=== PATIENT | female | born 1930 | race Caucasian/White ===

== ENCOUNTER → 2016-10-05 | Outpatient (CLI) | payer MEDICARE, BC ==
[2016-10-05 14:29] LABS: Basophils % (A) 1 %; CH 27.5; CHCM 31.6; Eosinophils % (A) 1 %; HDW 2.61; HGB 13.9 gm/dL (11.4-16.0); Hypochromasia Slight; Luc # (Auto) 0.13; Luc % (Auto) 3; Lymphocytes # (A) 1.1 k/uL (1.0-4.8); Lymphocytes % (A) 22 %; MCH 27.8 pg (25.0-35.0); MCHC 31.7 g/dL (31.0-37.0); MCV 87.8 fL (80.0-100.0); Mean Platelet Volume 7.2; Monocytes # (A) 0.3 k/uL (0-1.0); Monocytes % (A) 6 %; Neutrophils # (A) 3.5 k/uL (1.3-7.7); Neutrophils % (A) 69 %; RBC 5.01 m/uL (3.80-5.40); RDW 14.9 % (11.5-15.5); WBC 5.1 k/uL (3.8-10.6); WBC (Perox) 5.24
[2016-10-05 14:44] LABS: ALT 47 U/L (9-52); AST 44 U/L (14-36); Alkaline Phosphatase 282 U/L (38-126); Anion Gap 11 mmol/L; Blood Urea Nitrogen 16 mg/dL (7-17); Calcium 8.7 mg/dL (8.4-10.2); Carbon Dioxide 30 mmol/L (22-30); Chloride 102 mmol/L (98-107); Glucose 114 mg/dL (74-99); Non-African American GFR(MDRD) >60 (>60 ml/min/1.73 sqM); Potassium 3.8 mmol/L (3.5-5.1); Sodium 143 mmol/L (137-145); Total Protein 6.6 g/dL (6.3-8.2)
== END | disposition home or self-care (01) ==
LOC: LABWHC1 13:59
PROVIDERS: ATTEND Internal Medicine
DX: E61.1 Iron deficiency (principal); E03.9 Hypothyroidism, unspecified; Z79.899 Other long term (current) drug therapy
CPT/HCPCS: 36415; 71020; 80053; 84439; 84443; 84481; 85025; 99213

== ENCOUNTER 2016-12-20 11:21 | Emergency (ER) | payer MEDICARE, BC ==
[2016-12-20] MEDS ORDERED: ACETAMINOPHEN TAB 325 MG TAB PO STA (11:56)
[2016-12-20 12:31] LABS: Basophils % (A) 1 %; CH 28.1; CHCM 32.2; Eosinophils # (A) 0.1 k/uL (0-0.7); Eosinophils % (A) 1 %; HCT 42.2 % (34.0-46.0); HDW 2.56; HGB 13.6 gm/dL (11.4-16.0); Luc # (Auto) 0.12; Luc % (Auto) 2; Lymphocytes # (A) 1.5 k/uL (1.0-4.8); Lymphocytes % (A) 27 %; MCH 28.3 pg (25.0-35.0); MCHC 32.2 g/dL (31.0-37.0); MCV 87.9 fL (80.0-100.0); Mean Platelet Volume 7.3; Monocytes # (A) 0.3 k/uL (0-1.0); Monocytes % (A) 5 %; Neutrophils # (A) 3.5 k/uL (1.3-7.7); Neutrophils % (A) 65 %; RDW 14.6 % (11.5-15.5); WBC 5.4 k/uL (3.8-10.6)
[2016-12-20 12:40] LABS: INR 1.1 (<1.1); Partial Thromboplastin Time 25.9 sec (22.0-30.0); Prothrombin Time 10.7 sec (9.0-12.0)
--- NOTE | 2016-12-20 12:43 | ED ---
General Adult HPI - General Chief complaint: Dizziness Stated complaint: headache, Time Seen by Provider: 12/20/16 11:45 Source: patient Mode of arrival: wheelchair Limitations: no limitations - History of Present Illness Initial comments: This is an 86-year-old female with a history of CAD who presents emergency department for an episode of room spinning. She states that she was sitting in her chair this morning when all of a sudden the room started spinning. She was afraid to get up because she was afraid she was going to fall. She did not describe it as lightheadedness. She has no history of vertigo in the past. The symptoms spontaneously resolved on their own after some time and the patient now complains of a mild generalized headache. She denied any chest pain or shortness of breath during this time. No nausea, vomiting, or diarrhea. She states that she denied any trouble speaking or swallowing or focal weakness in her arms or legs. She denies any other acute complaints. - Related Data Home Medications Medication Instructions Recorded Confirmed Aspirin 81 mg PO DAILY 08/01/14 12/20/16 Atenolol [Tenormin] 50 mg PO BID 08/01/14 12/20/16 Levothyroxine Sodium [Synthroid] 75 mcg PO DAILY 08/01/14 12/20/16 Losartan [Cozaar] 50 mg PO HS 08/01/14 12/20/16 Timolol [Betimol 0.5% Ophth Soln] 1 drop BOTH EYES BID 03/19/15 12/20/16 Apixaban [Eliquis] 2.5 mg PO BID 08/07/15 12/20/16 amLODIPine [Norvasc] 5 mg PO HS 07/10/16 12/20/16 Atorvastatin [Lipitor] 40 mg PO HS 12/20/16 12/20/16 Furosemide [Lasix] 20 mg PO BID@0800,1400 12/20/16 12/20/16 Potassium Chloride ER [K-Dur 20] 20 meq PO MOWEFR 12/20/16 12/20/16 Previous Rx's Medication Instructions Recorded Atenolol [Tenormin] 75 mg PO BID #60 tab 12/20/16 Meclizine [Antivert] 25 mg PO TID PRN #21 tab 12/20/16 Allergies Allergy/AdvReac Type Severity Reaction Status Date / Time hydroxyzine HCl Allergy Rash/Hives Verified 12/20/16 12:39 [From Vistaril] hydroxyzine pamoate Allergy Rash/Hives Verified 12/20/16 12:39 [From Vistaril] Review of Systems ROS Statement: Those systems with pertinent positive or pertinent negative responses have been documented in the HPI. ROS Other: All systems not noted in ROS Statement are negative. Past Medical History Past Medical History: Coronary Artery Disease (CAD), Deep Vein Thrombosis (DVT) , Eye Disorder, Hyperlipidemia, Hypertension, Thyroid Disorder Additional Past Medical History / Comment(s): GLAUCOMA, HX OF SKIN CA, CURRENT LESION LEFT MEDIAL CANTHUS History of Any Multi-Drug Resistant Organisms: None Reported Past Surgical History: Coronary Bypass/CABG, Heart Catheterization With Stent, Joint Replacement, Orthopedic Surgery Additional Past Surgical History / Comment(s): MICHAEL KNEE'S REPLACED, thyroid surgery x 2, MAGNUS, EPS, CARDIOVERSION, CABG X3, STENT X1 Past Anesthesia/Blood Transfusion Reactions: No Reported Reaction Date of Last Stent Placement:: 2012 Past Psychological History: No Psychological Hx Reported Smoking Status: Never smoker Past Alcohol Use History: None Reported Past Drug Use History: None Reported - Past Family History Brother(s) Family Medical History: Cancer General Exam - General Exam Comments Initial Comments: Constitutional: Awake alert Appears comfortable Head: Normocephalic atraumatic Eyes: no conjunctival injection No scleral icterus EOMI Neck: No JVD Supple Heart: Regular rate rhythm normal S1-S2 no murmurs Lungs: Clear to auscultation bilaterally No wheezing No rales Abdomen: Soft nondistended nontender Extremities: Non edematous DP pulses intact Radial pulses intact Neuro: A&Ox3 cranial nerves II through XII are grossly intact, 5 out of 5 strength in upper and lower extremities bilaterally, finger to nose and heel to prescott testing is intact, no nystagmus with pupillary examination, pupils are 4 mm and reactive bilaterally Psych: Appropriate mood and affect Limitations: no limitations Course Vital Signs 12/20/16 12/20/16 11:33 12:47 Temperature 98.0 F Pulse Rate 78 89 Respiratory 20 18 Rate Blood Pressure 119/62 156/87 O2 Sat by Pulse 98 95 Oximetry EKG Findings - EKG Comments: EKG Findings:: EKG is showing atrial fibrillation with a rate of 80. No ST segment changes or T-wave inversions. QTC is 455. Other intervals are normal. No ectopy. Medical Decision Making - Medical Decision Making This is an 86-year-old female came to the emergency department for what appears to be vertigo. Blood work was reviewed and unremarkable. CT of the head was negative. EKG did show that the patient has converted back in atrial fibrillation. She is on all questions and anticoagulated. Her rate has been in the 90s to 100. I spoke with Dr. Lechuga about the case and he stated that he would just recommend increasing the atenolol to 75 mg twice a day and following up with Dr. muller on in the office and she hasn't point with Dr. Gaytan in 2 days. The patient feels comfortable with this plan and okay to go home. Should not require any intervention for her vertigo in the emergency department. Can return if she has worsening or changing symptoms. All questions were answered. - Lab Data Result diagrams: 12/20/16 12:06 12/20/16 12:06 Lab Results 12/20/16 12/20/16 12/20/16 Range/Units 12:06 12:06 12:06 WBC 5.4 (3.8-10.6) k/uL RBC 4.80 (3.80-5.40) m/uL Hgb 13.6 (11.4-16.0) gm/dL Hct 42.2 (34.0-46.0) % MCV 87.9 (80.0-100.0) fL MCH 28.3 (25.0-35.0) pg MCHC 32.2 (31.0-37.0) g/dL RDW 14.6 (11.5-15.5) % Plt Count 148 L (150-450) k/uL Neutrophils % 65 % Lymphocytes % 27 % Monocytes % 5 % Eosinophils % 1 % Basophils % 1 % Neutrophils # 3.5 (1.3-7.7) k/uL Lymphocytes # 1.5 (1.0-4.8) k/uL Monocytes # 0.3 (0-1.0) k/uL Eosinophils # 0.1 (0-0.7) k/uL Basophils # 0.0 (0-0.2) k/uL PT 10.7 (9.0-12.0) sec INR 1.1 (<1.1) APTT 25.9 (22.0-30.0) sec Sodium 142 (137-145) mmol/L Potassium 3.8 (3.5-5.1) mmol/L Chloride 104 (98-107) mmol/L Carbon Dioxide 29 (22-30) mmol/L Anion Gap 9 mmol/L BUN 18 H (7-17) mg/dL Creatinine 0.67 (0.52-1.04) mg/dL Est GFR (MDRD) Af Amer >60 (>60 ml/min/1.73 sqM) Est GFR (MDRD) Non-Af >60 (>60 ml/min/1.73 sqM) Glucose 82 (74-99) mg/dL Calcium 8.9 (8.4-10.2) mg/dL Total Bilirubin 1.0 (0.2-1.3) mg/dL AST 28 (14-36) U/L ALT 29 (9-52) U/L Alkaline Phosphatase 166 H (38-126) U/L Total Protein 6.7 (6.3-8.2) g/dL Albumin 3.7 (3.5-5.0) g/dL Disposition Clinical Impression: Atrial fibrillation, Vertigo Disposition: HOME SELF-CARE Condition: Stable Instructions: Dizziness (ED) Prescriptions: Atenolol [Tenormin] 75 mg PO BID #60 tab Meclizine [Antivert] 25 mg PO TID PRN #21 tab PRN Reason: dizziness Referrals: Naveen Mcduffie DO [Primary Care Provider] - 1-2 days Shayna Wick MD [Medical Doctor] - 1-2 days
[2016-12-20 12:48] VITALS: RESP 18
[2016-12-20 12:49] LABS: ALT 29 U/L (9-52); AST 28 U/L (14-36); Alkaline Phosphatase 166 U/L (38-126); Anion Gap 9 mmol/L; Blood Urea Nitrogen 18 mg/dL (7-17); Calcium 8.9 mg/dL (8.4-10.2); Carbon Dioxide 29 mmol/L (22-30); Chloride 104 mmol/L (98-107); Glucose 82 mg/dL (74-99); Non-African American GFR(MDRD) >60 (>60 ml/min/1.73 sqM); Potassium 3.8 mmol/L (3.5-5.1); Sodium 142 mmol/L (137-145); Total Protein 6.7 g/dL (6.3-8.2)
--- NOTE | 2016-12-20 13:28 | CT ---
EXAMINATION TYPE: CT brain wo con DATE OF EXAM: 12/20/2016 1:20 PM COMPARISON: NONE INDICATION: Dizziness and headache DLP: 984.50 mGycm, Automated exposure control for dose reduction was used. CONTRAST: None CT of the brain is performed utilizing 3 mm thick sections through the posterior fossa and 3 mm thick sections through the remaining calvarium. Study is performed within 24 hours of arrival to the hosp ital. No abnormal hyperdensity is present to suggest an acute intracranial hemorrhage. No mass lesion is evident. No acute infarcts are evident. Ventricles and sulci are appropriate for the patient age. Paranasal sinuses and mastoid air cells within the [id number] are clear. IMPRESSIONS: 1. No acute intracranial process.
[2016-12-20 15:21] VITALS: BP 128/83; PULSE 95; TEMP 97.6
== END 2016-12-20 15:21 | disposition home or self-care (01) ==
LOC: EC 11:21
DX: I48.91 Unspecified atrial fibrillation (principal); R42 Dizziness and giddiness; R51 Headache; I25.10 Atherosclerotic heart disease of native coronary artery without angina pectoris; E78.5 Hyperlipidemia, unspecified; I10 Essential (primary) hypertension; E07.9 Disorder of thyroid, unspecified; Z79.82 Long term (current) use of aspirin; Z79.01 Long term (current) use of anticoagulants; Z79.899 Other long term (current) drug therapy; Z88.8 Allergy status to other drugs, medicaments and biological substances; Z86.69 Personal history of other diseases of the nervous system and sense organs; Z86.718 Personal history of other venous thrombosis and embolism; Z95.5 Presence of coronary angioplasty implant and graft
CPT/HCPCS: 36415; 70450; 80053; 85025; 85610; 85730; 93005; 99284

== ENCOUNTER → 2017-02-03 | Outpatient (CLI) | payer MEDICARE, BC ==
--- NOTE | 2017-02-03 10:58 | WWHP ---
DATE OF SERVICE: 02/03/2017 CHIEF COMPLAINT: The patient is here for her routine gynecologic exam and mammogram. HPI: This is an 87-year-old G5, P5 with an LMP of 1974, who is status post [facility] for benign reasons. The patient continues to have some vaginal and labial irritation which she states had been previously improved with Premarin vaginal cream. She did not fill the prescription for the Premarin vaginal cream because of its cost. She would like to get another prescription for this. PAST MEDICAL HISTORY: Hypothyroidism, chronic hypertension, elevated cholesterol, coronary artery disease, and atrial fibrillation. MEDICATIONS: 1. Synthroid 75 mcg daily. 2. Amlodipine 5 mg daily. 3. Atenolol 50 mg b.i.d. 4. Aspirin 81 mg daily. 5. Eliquis 1 daily. 6. Losartan 50 mg daily. 7. Timolol drops b.i.d. 8. Atorvastatin 40 mg daily. Allergies to VISTARIL. Past surgical history is unchanged from the 2015 H&P. 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 SOCIAL HISTORY: She denies tobacco, alcohol, and drug use and has been since 1950 and is not sexually active. REVIEW OF SYSTEMS: Weight has been stable. She denies respiratory, cardiac, or GI problems. She denies urinary leakage. She also denies maltreatment or falling. PHYSICAL EXAM: Blood pressure 132/79. Height 5 feet 0 inches. Weight 129 pounds. Temperature 97.6, pulse 72. This a well-developed, well-nourished white female who is alert and oriented x3 in no acute distress. HEENT is within normal limits. NECK: Supple without mass or thyromegaly. CHEST AND LUNGS: Clear to auscultation. HEART: Irregularly irregular rhythm consistent with atrial fibrillation. Breasts are without mass or discharge. Axillary exam is negative for adenopathy. BACK: Negative for CVA tenderness. ABDOMEN: Soft, nontender, without palpable masses. PELVIC EXAM: External genitalia reveals moderate to severe atrophy with mild generalized pallor. There are no focal lesions and no excoriation noted. The vagina reveals moderate atrophy without lesions. There is no significant prolapse. Bimanual exam is negative for mass or tenderness. Rectovaginal exam is negative for mass or tenderness and is negative for occult blood. EXTREMITIES: Nontender. IMPRESSION: 1. An 87-year-old menopausal female, status post total abdominal hysterectomy for benign reasons. 2. 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 PLAN: 1. Pap smears have been discontinued. 2. Self breast examination was discussed. 3. A prescription for Premarin vaginal cream was given to the patient. She used to use 1 gram intravaginally twice weekly to the vagina and to the vulva as directed. 4. Osteoporosis prevention was discussed. 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 5. She does not get flu shots in the fall. 6. She will return in one year.
--- NOTE | 2017-02-04 12:55 | MM ---
Reason for exam: screening (asymptomatic). Last mammogram was performed 1 year ago. History: Patient is postmenopausal and history of other cancer. Physical Findings: A clinical breast exam by your physician is recommended on an annual basis and results should be correlated with mammographic findings. MG Screening Mammo w CAD Bilateral CC and MLO view(s) were taken. Prior study comparison: January 29, 2016, bilateral MG 3d screening mammo w/cad. January 22, 2015, bilateral MG screening mammo w CAD. The breast tissue is heterogeneously dense. This may lower the sensitivity of mammography. Previous mammotome biopsy in the left breast. No significant changes when compared with prior studies. ASSESSMENT: Benign, BI-RAD 2 RECOMMENDATION: Routine screening mammogram of both breasts in 1 year.
== END | disposition home or self-care (01) ==
LOC: WWCWWP 09:28
PROVIDERS: ATTEND Obstetrics & Gynecology
DX: Z12.31 Encounter for screening mammogram for malignant neoplasm of breast (principal)

== ENCOUNTER → 2017-05-26 | Outpatient (CLI) | payer MEDICARE, BC ==
--- NOTE | 2017-05-26 11:41 | FL ---
ESOPHOGRAM. HISTORY: Dysphagia Esophagram was performed per the air contrast technique. The patient swallowed barium and effervesce nt crystals without difficulty or delay. Esophageal peristalsis and motility appear to be within normal limits. There is no evidence for filling defect, mass or diverticulum. No hiatal hernia seen. Subsequently single contrast cervical esophagram was performed which fails demonstrate evidence for a spiration penetration or mass. IMPRESSION: Unremarkable study.
== END | disposition home or self-care (01) ==
LOC: RADFLMAIN 10:28
PROVIDERS: ATTEND Otolaryngology
DX: R13.10 Dysphagia, unspecified (principal)
CPT/HCPCS: 74220

== ENCOUNTER 2017-06-14 10:34 | Observation (INO) | payer MEDICARE, BC ==
[2017-06-14] MEDS ORDERED: SODIUM CHLORIDE 0.9% 1,000 ML IV STA (11:34)
[2017-06-14] MEDS ORDERED: PANTOPRAZOLE 40 MG/10 ML VIAL IVP STA (11:34)
--- NOTE | 2017-06-14 12:10 | ED ---
General Adult HPI - General Chief complaint: GI Bleed Stated complaint: Bloody Stool Time Seen by Provider: 06/14/17 11:27 Source: patient, RN notes reviewed Mode of arrival: ambulatory Limitations: no limitations - History of Present Illness Initial comments: Patient 87-year-old female who presents emergency room today with some blood in her stool. She states that she had diarrhea a few days ago. She says diarrhea has been improving but she has noticed some dark stools over the last 2 or 3 days. Patient left feeling tired. She mentioned complaints associated symptoms. Patient denies any recent fever, chills, shortness of breath, chest pain, back pain, abdominal pain, nausea or vomiting, numbness or tingling, dysuria or hematuria, constipation, headaches or visual changes, or any other complaints. - Related Data Home Medications Medication Instructions Recorded Confirmed Aspirin 81 mg PO DAILY 08/01/14 06/14/17 Atenolol [Tenormin] 50 mg PO BID 08/01/14 06/14/17 Levothyroxine Sodium [Synthroid] 75 mcg PO DAILY 08/01/14 06/14/17 Losartan [Cozaar] 50 mg PO HS 08/01/14 06/14/17 Timolol [Betimol 0.5% Ophth Soln] 1 drop BOTH EYES BID 03/19/15 06/14/17 Atorvastatin [Lipitor] 40 mg PO HS 12/20/16 06/14/17 Apixaban [Eliquis] 2.5 mg PO BID 06/14/17 06/14/17 Allergies Allergy/AdvReac Type Severity Reaction Status Date / Time hydroxyzine HCl Allergy Rash/Hives Verified 06/14/17 11:38 [From Vistaril] hydroxyzine pamoate Allergy Rash/Hives Verified 06/14/17 11:38 [From Vistaril] Review of Systems ROS Statement: Those systems with pertinent positive or pertinent negative responses have been documented in the HPI. ROS Other: All systems not noted in ROS Statement are negative. Past Medical History Past Medical History: Coronary Artery Disease (CAD), Deep Vein Thrombosis (DVT) , Eye Disorder, Hyperlipidemia, Hypertension, Thyroid Disorder Additional Past Medical History / Comment(s): GLAUCOMA, HX OF SKIN CA, CURRENT LESION LEFT MEDIAL CANTHUS History of Any Multi-Drug Resistant Organisms: None Reported Past Surgical History: Coronary Bypass/CABG, Heart Catheterization With Stent, Joint Replacement, Orthopedic Surgery Additional Past Surgical History / Comment(s): MICHAEL KNEE'S REPLACED, thyroid surgery x 2, MAGNUS, EPS, CARDIOVERSION, CABG X3, STENT X1 Past Anesthesia/Blood Transfusion Reactions: No Reported Reaction Date of Last Stent Placement:: 2012 Past Psychological History: No Psychological Hx Reported Smoking Status: Never smoker Past Alcohol Use History: None Reported Past Drug Use History: None Reported - Past Family History Brother(s) Family Medical History: Cancer General Exam - General Exam Comments Initial Comments: General: The patient is awake and alert, in no distress, and does not appear acutely ill. Eye: Pupils are equal, round and reactive to light, extra-ocular movements are intact. No nystagmus. There is normal conjunctiva bilaterally. No signs of icterus. Ears, nose, mouth and throat: There are moist mucous membranes and no oral lesions. Neck: The neck is supple, there is no tenderness or JVD. Cardiovascular: There is a regular rate and rhythm. No murmur, rub or gallop is appreciated. Respiratory: Lungs are clear to auscultation, respirations are non-labored, breath sounds are equal. No wheezes, stridor, rales, or rhonchi. Gastrointestinal: Soft, non-distended, non-tender abdomen without masses or organomegaly noted. There is no rebound or guarding present. No CVA tenderness. Bowel sounds are unremarkable. Musculoskeletal: Normal ROM, no tenderness. Strength 5/5. Sensation intact. Pulses equal bilaterally 2+. Neurological: A&O x 3. CN II-XII intact, There are no obvious motor or sensory deficits. Coordination appears grossly intact. Speech is normal. Skin: Skin is warm and dry and no rashes or lesions are noted. Psychiatric: Cooperative, appropriate mood & affect, normal judgment. : [employer] GAUGERSHAHRAM Hare present for exam. Normal rectal tone. Positive Guaiac Limitations: no limitations Course Vital Signs 06/14/17 11:21 Temperature 96.9 F L Pulse Rate 88 Respiratory 16 Rate Blood Pressure 132/61 O2 Sat by Pulse 96 Oximetry Medical Decision Making - Medical Decision Making Patient's labs been reviewed. Stable hemoglobin. Patient is on a liquids. Occult is positive. Patient will be admitted to the hospital. Case discussed with attending physician Dr. Holm who discussed case with Dr. Mcduffie who requests a surgical consult from Dr. Berman however, patient states that if there is a surgeon consult that they would like Dr. Omalley. They state they have seen him in the past. - Lab Data Result diagrams: 06/14/17 11:57 06/14/17 11:57 Lab Results 06/14/17 06/14/17 06/14/17 Range/Units 11:57 11:57 11:57 WBC 4.8 (3.8-10.6) k/uL RBC 5.00 (3.80-5.40) m/uL Hgb 13.8 (11.4-16.0) gm/dL Hct 43.2 (34.0-46.0) % MCV 86.5 (80.0-100.0) fL MCH 27.5 (25.0-35.0) pg MCHC 31.9 (31.0-37.0) g/dL RDW 14.1 (11.5-15.5) % Plt Count 200 (150-450) k/uL Neutrophils % 57 % Lymphocytes % 31 % Monocytes % 6 % Eosinophils % 2 % Basophils % 1 % Neutrophils # 2.7 (1.3-7.7) k/uL Lymphocytes # 1.5 (1.0-4.8) k/uL Monocytes # 0.3 (0-1.0) k/uL Eosinophils # 0.1 (0-0.7) k/uL Basophils # 0.0 (0-0.2) k/uL PT 12.0 (9.0-12.0) sec INR 1.2 H (<1.2) APTT 29.4 (22.0-30.0) sec Sodium 142 (137-145) mmol/L Potassium 4.1 (3.5-5.1) mmol/L Chloride 104 (98-107) mmol/L Carbon Dioxide 30 (22-30) mmol/L Anion Gap 8 mmol/L BUN 16 (7-17) mg/dL Creatinine 0.76 (0.52-1.04) mg/dL Est GFR (MDRD) Af Amer >60 (>60 ml/min/1.73 sqM) Est GFR (MDRD) Non-Af >60 (>60 ml/min/1.73 sqM) Glucose 86 (74-99) mg/dL Calcium 8.5 (8.4-10.2) mg/dL Total Bilirubin 0.8 (0.2-1.3) mg/dL AST 33 (14-36) U/L ALT 27 (9-52) U/L Alkaline Phosphatase 169 H (38-126) U/L Total Protein 6.6 (6.3-8.2) g/dL Albumin 3.2 L (3.5-5.0) g/dL Stool Occult Blood (Negative) 06/14/17 Range/Units 11:57 WBC (3.8-10.6) k/uL RBC (3.80-5.40) m/uL Hgb (11.4-16.0) gm/dL Hct (34.0-46.0) % MCV (80.0-100.0) fL MCH (25.0-35.0) pg MCHC (31.0-37.0) g/dL RDW (11.5-15.5) % Plt Count (150-450) k/uL Neutrophils % % Lymphocytes % % Monocytes % % Eosinophils % % Basophils % % Neutrophils # (1.3-7.7) k/uL Lymphocytes # (1.0-4.8) k/uL Monocytes # (0-1.0) k/uL Eosinophils # (0-0.7) k/uL Basophils # (0-0.2) k/uL PT (9.0-12.0) sec INR (<1.2) APTT (22.0-30.0) sec Sodium (137-145) mmol/L Potassium (3.5-5.1) mmol/L Chloride (98-107) mmol/L Carbon Dioxide (22-30) mmol/L Anion Gap mmol/L BUN (7-17) mg/dL Creatinine (0.52-1.04) mg/dL Est GFR (MDRD) Af Amer (>60 ml/min/1.73 sqM) Est GFR (MDRD) Non-Af (>60 ml/min/1.73 sqM) Glucose (74-99) mg/dL Calcium (8.4-10.2) mg/dL Total Bilirubin (0.2-1.3) mg/dL AST (14-36) U/L ALT (9-52) U/L Alkaline Phosphatase (38-126) U/L Total Protein (6.3-8.2) g/dL Albumin (3.5-5.0) g/dL Stool Occult Blood Positive H (Negative) Disposition Clinical Impression: GI bleed Disposition: ADMITTED IP TO THIS HOSP Condition: Stable Instructions: Gastrointestinal Bleeding (ED) Referrals: Naveen Mcduffie DO [Primary Care Provider] - 1-2 days Time of Disposition: 13:01
[2017-06-14 12:18] LABS: Basophils % (A) 1 %; CH 27.4; CHCM 31.9; Eosinophils # (A) 0.1 k/uL (0-0.7); Eosinophils % (A) 2 %; HCT 43.2 % (34.0-46.0); HDW 2.71; HGB 13.8 gm/dL (11.4-16.0); Luc # (Auto) 0.15; Luc % (Auto) 3; Lymphocytes # (A) 1.5 k/uL (1.0-4.8); Lymphocytes % (A) 31 %; MCH 27.5 pg (25.0-35.0); MCHC 31.9 g/dL (31.0-37.0); MCV 86.5 fL (80.0-100.0); Mean Platelet Volume 7.4; Monocytes # (A) 0.3 k/uL (0-1.0); Monocytes % (A) 6 %; Neutrophils # (A) 2.7 k/uL (1.3-7.7); Neutrophils % (A) 57 %; RDW 14.1 % (11.5-15.5); WBC 4.8 k/uL (3.8-10.6); WBC (Perox) 4.43
[2017-06-14 12:23] LABS: ALT 27 U/L (9-52); AST 33 U/L (14-36); Alkaline Phosphatase 169 U/L (38-126); Anion Gap 8 mmol/L; Blood Urea Nitrogen 16 mg/dL (7-17); Calcium 8.5 mg/dL (8.4-10.2); Carbon Dioxide 30 mmol/L (22-30); Chloride 104 mmol/L (98-107); Glucose 86 mg/dL (74-99); Non-African American GFR(MDRD) >60 (>60 ml/min/1.73 sqM); Potassium 4.1 mmol/L (3.5-5.1); Sodium 142 mmol/L (137-145); Total Bilirubin 0.8 mg/dL (0.2-1.3); Total Protein 6.6 g/dL (6.3-8.2)
[2017-06-14 12:33] LABS: INR 1.2 (<1.2); Partial Thromboplastin Time 29.4 sec (22.0-30.0)
[2017-06-14] MEDS ORDERED: ACETAMINOPHEN TAB 325 MG TAB PO PRN (13:08)
[2017-06-14] MEDS ORDERED: ONDANSETRON 4 MG/2 ML VIAL IVP PRN (13:08)
[2017-06-14] MEDS ORDERED: NALOXONE 0.4 MG/ML 1 ML VIAL IV PRN (13:08)
[2017-06-14 14:53] LABS: Appearance,Urine Clear (Clear); Bacteria,Urine Rare /hpf; Bilirubin,Urine Negative (Negative); Glucose,Urine (UA) Negative (Negative); Ketones,Urine Negative (Negative); Leukocyte Esterase,Urine Trace (Negative); Mucus,Urine Rare /hpf; Nitrite,Urine Negative (Negative); Particle Count 1575; Protein,Urine Negative (Negative); Specific Gravity,Urine 1.003 (1.001-1.035); Squamous Epithelial Cell,Urine 2 /hpf (0-4); UA Billing (MACRO vs. MICRO) MICRO; Urobilinogen,Urine <2.0 mg/dL (<2.0); WBC,Urine 2 /hpf (0-5)
[2017-06-14 15:10] VITALS: RESP 18
[2017-06-14 18:21] LABS: CH 27.6; CHCM 31.6; HCT 36.7 % (34.0-46.0); HDW 2.68; HGB 11.7 gm/dL (11.4-16.0); Hypochromasia Slight; MCH 28.1 pg (25.0-35.0); MCV 87.8 fL (80.0-100.0); RBC 4.18 m/uL (3.80-5.40); RDW 14.3 % (11.5-15.5); WBC 4.3 k/uL (3.8-10.6)
[2017-06-14] MEDS ORDERED: ATORVASTATIN 40 MG TAB PO SCH (21:00)
[2017-06-14] MEDS ORDERED: LOSARTAN 50 MG TAB PO SCH (21:00)
[2017-06-14] MEDS: ATENOLOL 50 MG TAB PO SCH (21:55)
[2017-06-14] MEDS: TIMOLOL 0.5% OPHTH DROPS 5 ML BTL BOTH EYES SCH (21:56)
[2017-06-15] MEDS ORDERED: LEVOTHYROXINE 75 MCG TAB PO SCH (06:30)
[2017-06-15 06:55] LABS: ALT 29 U/L (9-52); AST 31 U/L (14-36); Alkaline Phosphatase 160 U/L (38-126); Anion Gap 6 mmol/L; Blood Urea Nitrogen 13 mg/dL (7-17); Calcium 8.1 mg/dL (8.4-10.2); Carbon Dioxide 28 mmol/L (22-30); Chloride 106 mmol/L (98-107); Glucose 92 mg/dL (74-99); Non-African American GFR(MDRD) >60 (>60 ml/min/1.73 sqM); Potassium 3.6 mmol/L (3.5-5.1); Sodium 140 mmol/L (137-145); Total Bilirubin 0.5 mg/dL (0.2-1.3); Total Protein 5.5 g/dL (6.3-8.2)
[2017-06-15 07:31] LABS: Basophils % (A) 1 %; CH 27.1; CHCM 30.8; Eosinophils # (A) 0.1 k/uL (0-0.7); Eosinophils % (A) 2 %; HCT 37.3 % (34.0-46.0); HDW 2.62; HGB 11.7 gm/dL (11.4-16.0); Hypochromasia Slight; Luc # (Auto) 0.12; Luc % (Auto) 3; Lymphocytes # (A) 1.3 k/uL (1.0-4.8); Lymphocytes % (A) 28 %; MCH 27.7 pg (25.0-35.0); MCHC 31.3 g/dL (31.0-37.0); MCV 88.4 fL (80.0-100.0); Mean Platelet Volume 7.8; Monocytes # (A) 0.3 k/uL (0-1.0); Monocytes % (A) 7 %; Neutrophils # (A) 2.8 k/uL (1.3-7.7); Neutrophils % (A) 59 %; RBC 4.22 m/uL (3.80-5.40); RDW 14.1 % (11.5-15.5); WBC 4.7 k/uL (3.8-10.6); WBC (Perox) 4.85
[2017-06-15 07:36] VITALS: BP 116/61; PULSE 93; TEMP 98.4
--- NOTE | 2017-06-15 08:59 | P.CON ---
Consult Note - . Consult date: 06/15/17 Assessment/Plan:: Thank you very much for asking me to see Mrs. Huerta.. She is well-known to me. She had a colonoscopy about 5 years ago had several tubular adenomas removed in the hyperplastic polyp. Not seen subsequently in the office. She was admitted the with a history of some bright red blood per rectum at least about 2 episodes. Had some loose bowel movements prior to that. The previously she's had fairly normal bowel movements daily. Since admission however she's not had any bowel movements or bleeding almost the 18-20 hours ago. Her hemoglobin was 13.6 on admission. 11.7 last night and 11.7 this morning. No nausea or vomiting. She denies any abdominal pain. She is currently on aspirin and the calculus. Has a history of arrhythmia coronary artery disease of CABG stent placement hypertension hypothyroidism. Past history as above. Also bilateral knee replacements. Several abdominal surgeries she can't recall exactly. Social history. She lives with her at home. Has several children in the neighborhood. Denies smoking or alcohol. Systems review. As above. No nausea or vomiting. No abdominal pain. No urinary symptoms. No dizziness or significant the weakness although she felt a little weak yesterday. Hungry. On examination the patient is well-built well-nourished awake alert poor memory. Then weighs about 54.5 kg. Color satisfactory hydration satisfactory head and neck otherwise normal no lymphadenopathy. Has well-healed thyroid to the ectomy scar. Heart regular with the PVCs. Lungs are clear. Abdomen is fairly soft has a long midline scar no hernias. No mass or organomegaly or tenderness. Rectal exam in the ER was normal without mass. Stool was Hemoccult positive. RETAIL MERCHANDISING SPECIALIST grossly intact no focal deficits. Laboratory laboratory studies reviewed as above hemoglobin is stable since last night. Drop from 13.6-11.7 probably motion. No evidence of any active bleeding at this time. Impression. No GI bleed. History of colon polyps. Doubt the malignancy. Probably outlet bleeding in view of irritation from recent diarrhea stool now resolved. No evidence of any active bleeding at this time. Multiple medical issues including coronary artery disease arrhythmia hypertension. On anticoagulants which may make her more prone to bleeding. Recommendation. We'll advance her diet. At her age somewhat too high for risks for endoscopic exam unless she continues to have active bleeding. May consider minimizing anticoagulation. We will continue to monitor her closely.
[2017-06-15] MEDS ORDERED: PANTOPRAZOLE 40 MG/10 ML VIAL IV SCH (09:00)
[2017-06-15] MEDS: ATENOLOL 50 MG TAB PO SCH (09:48)
[2017-06-15] MEDS: TIMOLOL 0.5% OPHTH DROPS 5 ML BTL BOTH EYES SCH (09:48)
--- NOTE | 2017-06-15 09:57 | P.HPIM ---
History of Present Illness H&P Date: 06/15/17 Chief Complaint: Blood per rectum This is an 87 year old female who presented to the ER on 06-14-17 with a chief complaint of blood in her stools. The patient had diarrhea for the past few days which is improving but then she started noticing blood in her stools. She has a history of coronary artery disease, DVT, hyperlipidemia, and hypertension. She has also had a CABG in the past and a heart catheterization with a stent. Patient is on long-term anticoagulation with Eliquis 2.5 mg by mouth twice a day. The patient was admitted to the observation unit under the care of Dr. Naveen Mcduffie and consults were placed to Dr. Omalley. The patient was evaluated by Dr. Omalley who did not believe the patients rectal bleeding was due to a GI bleed, but rather outlet bleeding from irritation from having multiple episodes of diarrhea. He recommended advancing the patients diet. No colonoscopy is planned at this time. The patient has not had any episodes of diarrhea since being at the hospital. Her hemoglobin is stable. Her vital signs are stable. She is afebrile. She's maintaining oxygen saturation greater than 92%. The patient denies chest pain, pressure, shortness of breath, nausea, or vomiting. 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 Past Anesthesia/Blood Transfusion Reactions: No Reported Reaction Date of Last Stent Placement:: 2012 Smoking Status: Never smoker - Past Family History Mother Additional Family Medical History / Comment(s): " OF OLD AGE IN HER 90'S" Father Additional Family Medical History / Comment(s): " OF OLD AGE IN HIS 90'S" Brother(s) Family Medical History: Cancer Medications and Allergies Home Medications Medication Instructions Recorded Confirmed Type Aspirin 81 mg PO DAILY 08/01/14 06/14/17 History Atenolol [Tenormin] 50 mg PO BID 08/01/14 06/14/17 History Levothyroxine Sodium [Synthroid] 75 mcg PO DAILY 08/01/14 06/14/17 History Losartan [Cozaar] 50 mg PO HS 08/01/14 06/14/17 History Timolol [Betimol 0.5% Ophth Soln] 1 drop BOTH EYES BID 03/19/15 06/14/17 History Atorvastatin [Lipitor] 40 mg PO HS 12/20/16 06/14/17 History Apixaban [Eliquis] 2.5 mg PO BID 06/14/17 06/14/17 History Allergies Allergy/AdvReac Type Severity Reaction Status Date / Time hydroxyzine HCl Allergy Rash/Hives Verified 06/14/17 20:14 [From Vistaril] hydroxyzine pamoate Allergy Rash/Hives Verified 06/14/17 20:14 [From Vistaril] Physical Exam Vitals: Vital Signs Temp Pulse Pulse Resp BP BP BP 06/15/17 08:00 93 06/15/17 07:35 98.4 F 93 18 116/61 06/15/17 04:00 18 06/15/17 00:00 98 F 92 18 94/60 06/14/17 20:00 99 18 06/14/17 15:08 98.0 F 99 18 129/87 06/14/17 14:49 98 F 96 17 109/58 06/14/17 11:21 96.9 F L 88 16 132/61 Pulse Ox 06/15/17 08:00 06/15/17 07:35 94 L 06/15/17 04:00 06/15/17 00:00 97 06/14/17 20:00 06/14/17 15:08 95 06/14/17 14:49 95 06/14/17 11:21 96 Intake and Output 06/14/17 06/15/17 06/15/17 22:59 06:59 14:59 Intake Total 520 600 Balance 520 600 Intake: Intake, IV Titration 300 Amount Sodium Chloride 0.9% 1, 300 000 ml @ 75 mls/hr IV . [id number] STA Rx#:[id number] Oral 520 300 Other: # Voids 3 1 Weight 54.5 kg GENERAL: Alert and oriented. Appears in no acute distress. Pleasant. RESPIRATORY: Lungs clear bilaterally. No use of accessory muscles. Patient maintaining oxygen saturation greater than 92%. CARDIOVASCULAR: S1 and S2 noted. No murmurs auscultated. No JVD noted. EXTREMITIES: No edema noted. Palpable pedal pulses +2. ABDOMEN: No distention noted. Abdomen soft and round. Normal active bowel sounds auscultated 4 quadrants. No pain or tenderness noted upon palpation. Results CBC & Chem 7: 06/15/17 06:19 06/15/17 06:19 Labs: Abnormal Lab Results - Last 24 Hours (Table) 06/14/17 06/14/17 06/14/17 Range/Units 11:57 11:57 11:57 INR 1.2 H (<1.2) Calcium (8.4-10.2) mg/dL Alkaline Phosphatase 169 H (38-126) U/L Total Protein (6.3-8.2) g/dL Albumin 3.2 L (3.5-5.0) g/dL Ur Leukocyte Esterase (Negative) Urine Bacteria (None) /hpf Urine Mucus (None) /hpf Stool Occult Blood Positive H (Negative) 06/14/17 06/15/17 Range/Units 14:30 06:19 INR (<1.2) Calcium 8.1 L (8.4-10.2) mg/dL Alkaline Phosphatase 160 H (38-126) U/L Total Protein 5.5 L (6.3-8.2) g/dL Albumin 2.6 L (3.5-5.0) g/dL Ur Leukocyte Esterase Trace H (Negative) Urine Bacteria Rare H (None) /hpf Urine Mucus Rare H (None) /hpf Stool Occult Blood (Negative) Microbiology - Last 24 Hours (Table) 06/14/17 14:30 Urine Culture - Preliminary Urine,Voided Thrombosis Risk Factor Assmnt - Choose All That Apply Any of the Below Risk Factors Present?: Yes Other Risk Factors: Yes Each Risk Factor Represents 2 Points: Malignancy Each Risk Factor Represents 3 Points: Age 75 years or older, History of DVT/PE Other congenital or acquired thrombophilia - If yes, enter type in comment: No Thrombosis Risk Factor Assessment Total Risk Factor Score: 8 Thrombosis Risk Factor Assessment Level: High Risk Assessment and Plan Plan: ASSESSMENT: -GI Bleed, ruled out -Rectal bleeding secondary to irritation from recent diarrhea, resolved -History of hemorrhoids -History of coronary artery disease, with prior stenting and CABG -History of deep vein thrombosis and atrial fibrillation, patient on long-term anticoagulation -Essential hypertension PLAN: -Dr. Omalley on consult. Appreciate recommendations and input -Resume home meds as appropriate -advance diet -Monitor labs -GI prophylaxis: 40 mg Protonix IV daily -DVT prophylaxis: Held due to rectal bleeding -Monitor vital signs and address as appropriate The above impression and plan of care have been discussed and directed by signing physician. Guera Terrell, nurse practitioner, acting as scribe for signing physician.
--- NOTE | 2017-06-15 10:19 | P.DS ---
Providers Date of admission: 06/14/17 14:27 Expected date of discharge: 06/15/17 Attending physician: Naveen Holden Consults: 06/14/17 13:11 Consult Physician Stat Consulting Provider: Marshall Omalley Consult Reason/Comments: GI bleed Do you want consulting provider notified?: Yes Primary care physician: Naveen [facility] Course: This is an 87 year old female who presented to the ER on 06-14-17 with a chief complaint of blood in her stools. The patient had diarrhea for the past few days which is improving but then she started noticing blood in her stools. She has a history of coronary artery disease, DVT, hyperlipidemia, and hypertension. She has also had a CABG in the past and a heart catheterization with a stent. Patient is on long-term anticoagulation with Eliquis 2.5 mg by mouth twice a day. The patient was admitted to the observation unit under the care of Dr. Naveen Holden and consults were placed to Dr. Omalley. The patient was evaluated by Dr. Omalley who did not believe the patients rectal bleeding was due to a GI bleed, but rather outlet bleeding from irritation from having multiple episodes of diarrhea. He recommended advancing the patients diet. No colonoscopy is planned at this time. The patient has not had any episodes of diarrhea since being at the hospital. Her hemoglobin is stable. Her vital signs are stable. She is afebrile. She's maintaining oxygen saturation greater than 92%. The patient denies chest pain, pressure, shortness of breath, nausea, or vomiting. The patient is stable for discharge home per Dr. Holden. The patient is to resume her aspirin. However she is supposed to hold her Eliquis until she sees Dr. Holden outpatient in the office. DISCHARGE DIAGNOSIS: -GI Bleed, ruled out -Rectal bleeding secondary to irritation from recent diarrhea, resolved -History of hemorrhoids -History of coronary artery disease, with prior stenting and CABG -History of deep vein thrombosis and atrial fibrillation, patient on long-term anticoagulation -Essential hypertension The above impression and plan of care have been discussed and directed by signing physician. Guera Terrell, nurse practitioner, acting as scribe for signing physician. Patient Condition at Discharge: Stable Plan - Discharge Summary New Discharge Prescriptions: Continue Losartan [Cozaar] 50 mg PO HS Atenolol [Tenormin] 50 mg PO BID Aspirin 81 mg PO DAILY Levothyroxine Sodium [Synthroid] 75 mcg PO DAILY Timolol [Betimol 0.5% Ophth Soln] 1 drop BOTH EYES BID Atorvastatin [Lipitor] 40 mg PO HS No Action Apixaban [Eliquis] 2.5 mg PO BID Discharge Medication List Aspirin 81 mg PO DAILY 08/01/14 [History] Atenolol [Tenormin] 50 mg PO BID 08/01/14 [History] Levothyroxine Sodium [Synthroid] 75 mcg PO DAILY 08/01/14 [History] Losartan [Cozaar] 50 mg PO HS 08/01/14 [History] Timolol [Betimol 0.5% Ophth Soln] 1 drop BOTH EYES BID 03/19/15 [History] Atorvastatin [Lipitor] 40 mg PO HS 12/20/16 [History] Apixaban [Eliquis] 2.5 mg PO BID 06/14/17 [History] Follow up Appointment(s)/Referral(s): Naveen Holden DO [Primary Care Provider] - 1 Week Marshall Omalley MD [STAFF PHYSICIAN] - As Needed Patient Instructions/Handouts: Gastrointestinal Bleeding (ED) Activity/Diet/Wound Care/Special Instructions: RESUME ASPIRIN. DO NOT RESUME ELIQUIS UNTIL YOU SEE DR. HOLDEN IN THE OFFICE NEXT WEEK Discharge Disposition: HOME SELF-CARE
== END 2017-06-15 13:10 | disposition home or self-care (01) ==
LOC: EC 10:34 → 3OBS 14:27
PROVIDERS: ADMIT Family Medicine; ATTEND Family Medicine
DX: R19.7 Diarrhea, unspecified (principal); R53.1 Weakness; K64.9 Unspecified hemorrhoids; I25.10 Atherosclerotic heart disease of native coronary artery without angina pectoris; Z95.1 Presence of aortocoronary bypass graft; Z95.5 Presence of coronary angioplasty implant and graft; Z86.718 Personal history of other venous thrombosis and embolism; I48.91 Unspecified atrial fibrillation; Z79.01 Long term (current) use of anticoagulants; I10 Essential (primary) hypertension; E03.9 Hypothyroidism, unspecified; E78.5 Hyperlipidemia, unspecified; H40.9 Unspecified glaucoma; I49.9 Cardiac arrhythmia, unspecified; Z79.82 Long term (current) use of aspirin; Z79.899 Other long term (current) drug therapy; Z85.828 Personal history of other malignant neoplasm of skin; Z86.010 Personal history of colon polyps; Z88.8 Allergy status to other drugs, medicaments and biological substances
CPT/HCPCS: 99285; 96374; 96361 ×4; 96376; 36415; 80053 ×2; 85025 ×2; 85027; 85610; 85730; 82272; 81001; 87086; G0378 ×2; C9113 ×2

== ENCOUNTER → 2017-06-30 | Outpatient (CLI) | payer MEDICARE, BC ==
[2017-06-30 10:06] LABS: ALT 26 U/L (9-52); AST 28 U/L (14-36); Alkaline Phosphatase 184 U/L (38-126); Anion Gap 5 mmol/L; Blood Urea Nitrogen 8 mg/dL (7-17); Calcium 8.9 mg/dL (8.4-10.2); Carbon Dioxide 32 mmol/L (22-30); Chloride 107 mmol/L (98-107); Cholesterol 136 mg/dL (<200); Glucose 90 mg/dL (74-99); HDL Cholesterol 51 mg/dL (40-60); Non-African American GFR(MDRD) >60 (>60 ml/min/1.73 sqM); Sodium 144 mmol/L (137-145); Total Protein 6.9 g/dL (6.3-8.2)
== END | disposition home or self-care (01) ==
LOC: LABWHC1 09:17
PROVIDERS: ATTEND Internal Medicine Interventional Cardiology
DX: E78.2 Mixed hyperlipidemia (principal)
CPT/HCPCS: 36415; 80053; 80061

== ENCOUNTER 2017-10-02 11:04 | Observation (INO) | payer MEDICARE, BC ==
--- NOTE | 2017-10-02 11:39 | ED ---
General Adult HPI - General Chief complaint: Chest Pain Stated complaint: CHEST PAIN, HAS HEART Hx Time Seen by Provider: 10/02/17 11:33 Source: patient, family, RN notes reviewed, old records reviewed Mode of arrival: wheelchair Limitations: physical limitation - History of Present Illness Initial comments: This is a 87-year-old female to the ER for evaluation today. Patient does say for evaluation regards to chest pain. Patient does have significant history of heart disease with open-heart surgery. Bypass. Patient states pain awoke her from sleep, pain was around 10 AM. Pain did resolve. Patient was very anxious taking that she was having a heart attack. Mild for breath no sweating. Patient denies nausea vomiting. No recent change in medications - Related Data Home Medications Medication Instructions Recorded Confirmed Aspirin 81 mg PO DAILY 08/01/14 10/02/17 Atenolol [Tenormin] 50 mg PO BID 08/01/14 10/02/17 Levothyroxine Sodium [Synthroid] 75 mcg PO DAILY 08/01/14 10/02/17 Losartan [Cozaar] 50 mg PO HS 08/01/14 10/02/17 Atorvastatin [Lipitor] 40 mg PO HS 12/20/16 10/02/17 Apixaban [Eliquis] 2.5 mg PO BID 06/14/17 10/02/17 Furosemide [Lasix] 20 mg PO DAILY 10/02/17 10/02/17 Furosemide [Lasix] 40 mg PO HS 10/02/17 10/02/17 Potassium Chloride [K-Tab ER] 20 meq PO MOWEFR 10/02/17 10/02/17 amLODIPine [Norvasc] 5 mg PO HS 10/02/17 10/02/17 Allergies Allergy/AdvReac Type Severity Reaction Status Date / Time hydroxyzine HCl Allergy Rash/Hives Verified 10/02/17 12:20 [From Vistaril] hydroxyzine pamoate Allergy Rash/Hives Verified 10/02/17 12:20 [From Vistaril] Review of Systems ROS Statement: Those systems with pertinent positive or pertinent negative responses have been documented in the HPI. ROS Other: All systems not noted in ROS Statement are negative. 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 Past Anesthesia/Blood Transfusion Reactions: No Reported Reaction Date of Last Stent Placement:: 2012 Past Psychological History: No Psychological Hx Reported Smoking Status: Never smoker - Past Family History Mother Additional Family Medical History / Comment(s): " OF OLD AGE IN HER 90'S" Father Additional Family Medical History / Comment(s): " OF OLD AGE IN HIS 90'S" Brother(s) Family Medical History: Cancer General Exam Limitations: physical limitation General appearance: alert, in no apparent distress, anxious Head exam: Present: atraumatic, normocephalic, normal inspection Eye exam: Present: normal appearance, PERRL, EOMI. Absent: scleral icterus, conjunctival injection, periorbital swelling ENT exam: Present: normal exam, mucous membranes moist Neck exam: Present: normal inspection. Absent: tenderness, meningismus, lymphadenopathy Respiratory exam: Present: normal lung sounds bilaterally. Absent: respiratory distress, wheezes, rales, rhonchi, stridor Cardiovascular Exam: Present: regular rate, normal rhythm, normal heart sounds. Absent: systolic murmur, diastolic murmur, rubs, gallop, clicks GI/Abdominal exam: Present: soft, normal bowel sounds. Absent: distended, tenderness, guarding, rebound, rigid Extremities exam: Present: normal inspection, full ROM, normal capillary refill. Absent: tenderness, pedal edema, joint swelling, calf tenderness Back exam: Present: normal inspection Neurological exam: Present: alert, oriented X3, CN II-XII intact Psychiatric exam: Present: normal affect, normal mood Skin exam: Present: warm, dry, intact, normal color. Absent: rash Course Vital Signs 10/02/17 10/02/17 11:08 12:51 Temperature 98.5 F Pulse Rate 90 89 Respiratory 16 16 Rate Blood Pressure 143/65 121/67 O2 Sat by Pulse 97 97 Oximetry - Reevaluation(s) Reevaluation #1: 10/02/17 12:58 This chest pain is remaining at this time although it is improved EKG Findings - EKG Comments: EKG Findings:: EKG shows A. fib rate of 95, QRS 76, QTc 447 Medical Decision Making - Medical Decision Making 87 female the ER for evaluation of chest pain. Patient be admitted for cardiac observation, severe history of coronary artery disease - Lab Data Result diagrams: 10/02/17 12:08 10/02/17 12:08 Lab Results 10/02/17 10/02/17 10/02/17 Range/Units 12:08 12:08 12:08 WBC 6.7 (3.8-10.6) k/uL RBC 4.69 (3.80-5.40) m/uL Hgb 12.7 (11.4-16.0) gm/dL Hct 39.3 (34.0-46.0) % MCV 83.7 (80.0-100.0) fL MCH 27.1 (25.0-35.0) pg MCHC 32.3 (31.0-37.0) g/dL RDW 15.6 H (11.5-15.5) % Plt Count 171 (150-450) k/uL Neutrophils % 69 % Lymphocytes % 23 % Monocytes % 5 % Eosinophils % 1 % Basophils % 1 % Neutrophils # 4.6 (1.3-7.7) k/uL Lymphocytes # 1.5 (1.0-4.8) k/uL Monocytes # 0.3 (0-1.0) k/uL Eosinophils # 0.0 (0-0.7) k/uL Basophils # 0.0 (0-0.2) k/uL PT (9.0-12.0) sec INR (<1.2) APTT (22.0-30.0) sec Sodium 143 (137-145) mmol/L Potassium 3.7 (3.5-5.1) mmol/L Chloride 106 (98-107) mmol/L Carbon Dioxide 30 (22-30) mmol/L Anion Gap 7 mmol/L BUN 15 (7-17) mg/dL Creatinine 0.65 (0.52-1.04) mg/dL Est GFR (MDRD) Af Amer >60 (>60 ml/min/1.73 sqM) Est GFR (MDRD) Non-Af >60 (>60 ml/min/1.73 sqM) Glucose 90 (74-99) mg/dL Calcium 8.8 (8.4-10.2) mg/dL Magnesium 2.2 (1.6-2.3) mg/dL Total Bilirubin 0.7 (0.2-1.3) mg/dL AST 81 H (14-36) U/L ALT 55 H (9-52) U/L Alkaline Phosphatase 267 H (38-126) U/L Total Creatine Kinase 119 (30-135) U/L CK-MB (CK-2) 0.9 (0.0-2.4) ng/mL CK-MB (CK-2) Rel Index 0.8 Troponin I <0.012 (0.000-0.034) ng/mL Total Protein 5.9 L (6.3-8.2) g/dL Albumin 3.2 L (3.5-5.0) g/dL Lipase 45 (23-300) U/L 10/02/17 Range/Units 12:08 WBC (3.8-10.6) k/uL RBC (3.80-5.40) m/uL Hgb (11.4-16.0) gm/dL Hct (34.0-46.0) % MCV (80.0-100.0) fL MCH (25.0-35.0) pg MCHC (31.0-37.0) g/dL RDW (11.5-15.5) % Plt Count (150-450) k/uL Neutrophils % % Lymphocytes % % Monocytes % % Eosinophils % % Basophils % % Neutrophils # (1.3-7.7) k/uL Lymphocytes # (1.0-4.8) k/uL Monocytes # (0-1.0) k/uL Eosinophils # (0-0.7) k/uL Basophils # (0-0.2) k/uL PT 10.8 (9.0-12.0) sec INR 1.1 (<1.2) APTT 23.8 (22.0-30.0) sec Sodium (137-145) mmol/L Potassium (3.5-5.1) mmol/L Chloride (98-107) mmol/L Carbon Dioxide (22-30) mmol/L Anion Gap mmol/L BUN (7-17) mg/dL Creatinine (0.52-1.04) mg/dL Est GFR (MDRD) Af Amer (>60 ml/min/1.73 sqM) Est GFR (MDRD) Non-Af (>60 ml/min/1.73 sqM) Glucose (74-99) mg/dL Calcium (8.4-10.2) mg/dL Magnesium (1.6-2.3) mg/dL Total Bilirubin (0.2-1.3) mg/dL AST (14-36) U/L ALT (9-52) U/L Alkaline Phosphatase (38-126) U/L Total Creatine Kinase (30-135) U/L CK-MB (CK-2) (0.0-2.4) ng/mL CK-MB (CK-2) Rel Index Troponin I (0.000-0.034) ng/mL Total Protein (6.3-8.2) g/dL Albumin (3.5-5.0) g/dL Lipase (23-300) U/L - Radiology Data Radiology results: report reviewed (Chest x-rays negative), image reviewed Critical Care Time Critical Care Time: Yes Total Critical Care Time: 31 Disposition Clinical Impression: Chest pain Disposition: ADMITTED IP TO THIS [facility] Condition: Undetermined Referrals: Naveen Mcduffie DO [Primary Care Provider] - 1-2 days
--- NOTE | 2017-10-02 12:23 | XR ---
EXAMINATION TYPE: XR chest 2V DATE OF EXAM: 10/02/2017 HISTORY: Chest Pain. REFERENCE: Previous study dated 02/15/2016. FINDINGS: There has been a midline sternotomy. Lung volumes are prominent. The heart is enlarged. There is some minimal airspace disease at the left lung base. I cannot exclude a small left effusion. IMPRESSION: 1. COPD. 2. CARDIOMEGALY. 3. LEFT BASILAR AIRSPACE DISEASE. 4. I CANNOT EXCLUDE A SMALL, LEFT EFFUSION.
[2017-10-02 12:26] LABS: Basophils % (A) 1 %; Eosinophils % (A) 1 %; HCT 39.3 % (34.0-46.0); HGB 12.7 gm/dL (11.4-16.0); Lymphocytes # (A) 1.5 k/uL (1.0-4.8); Lymphocytes % (A) 23 %; MCH 27.1 pg (25.0-35.0); MCHC 32.3 g/dL (31.0-37.0); MCV 83.7 fL (80.0-100.0); Mean Platelet Volume 8.2; Monocytes # (A) 0.3 k/uL (0-1.0); Monocytes % (A) 5 %; Neutrophils # (A) 4.6 k/uL (1.3-7.7); Neutrophils % (A) 69 %; Platelet Count 171 k/uL (150-450); RBC 4.69 m/uL (3.80-5.40); RDW 15.6 % (11.5-15.5); WBC 6.7 k/uL (3.8-10.6)
[2017-10-02 12:30] LABS: INR 1.1 (<1.2); Partial Thromboplastin Time 23.8 sec (22.0-30.0); Prothrombin Time 10.8 sec (9.0-12.0)
[2017-10-02 12:34] LABS: ALT 55 U/L (9-52); AST 81 U/L (14-36); Albumin 3.2 g/dL (3.5-5.0); Alkaline Phosphatase 267 U/L (38-126); Anion Gap 7 mmol/L; Blood Urea Nitrogen 15 mg/dL (7-17); Calcium 8.8 mg/dL (8.4-10.2); Carbon Dioxide 30 mmol/L (22-30); Chloride 106 mmol/L (98-107); Glucose 90 mg/dL (74-99); Lipase 45 U/L (23-300); Magnesium 2.2 mg/dL (1.6-2.3); Potassium 3.7 mmol/L (3.5-5.1); Sodium 143 mmol/L (137-145); Total Bilirubin 0.7 mg/dL (0.2-1.3); Total Protein 5.9 g/dL (6.3-8.2)
[2017-10-02 12:41] LABS: Creatine Kinase 119 U/L (30-135)
[2017-10-02 12:54] LABS: Creatine Kinase MB 0.9 ng/mL (0.0-2.4); Troponin I <0.012 ng/mL (0.000-0.034)
[2017-10-02] MEDS ORDERED: ASPIRIN 81 MG PO STA (12:57)
[2017-10-02] MEDS ORDERED: MORPHINE SULFATE 2 MG/ML SYRINGE IV PRN (12:57)
[2017-10-02] MEDS ORDERED: NITROGLYCERIN SL TABS 0.4 MG TAB SUBLINGUAL PRN (12:57)
[2017-10-02 15:29] VITALS: BMI 21.4
[2017-10-02 18:48] LABS: Creatine Kinase 106 U/L (30-135)
[2017-10-02 19:00] LABS: Creatine Kinase MB 0.7 ng/mL (0.0-2.4); Troponin I <0.012 ng/mL (0.000-0.034)
[2017-10-02] MEDS: METOPROLOL TARTRATE 25 MG TAB PO SCH (20:24)
--- NOTE | 2017-10-02 22:43 | P.HPIM ---
History of Present Illness H&P Date: 10/02/17 Chief Complaint: Chest pain Patient is a 87-year-old female with a known history of coronary artery disease status post coronary artery bypass graft and history of stent placement, atrial fibrillation on anticoagulation, hypertension, hyperlipidemia and hypothyroidism as well as hiatal hernia came to ER with complaints of chest pain. Patient does have pain mainly in the epigastric area across the upper abdomen. Patient was sitting on the couch when she had this pain and which lasted for about 30 minutes. No associated nausea or vomiting. No diaphoresis. No headache or dizziness or lightheadedness. No radiation of the pain. Due to prior history of significant heart disease family wanted her to go to ER. Otherwise patient denied any recent illness or sick contacts at home. No recent travel. Patient denied any nausea vomiting. No diarrhea. No constipation. Chest x-ray showed cardiomegaly, COPD and left basilar airspace disease. EKG showed atrial fibrillation Troponin 1 negative Review of Systems Constitutional: Patient denies any fever or chills . No generalized weakness or weight loss. Abdomen: Patient denied nausea vomiting and diarrhea . Epigastric abdominal pain. Cardiovascular: Patient denies any chest pain or short of breath no palpitations. Respiratory: patient denied any cough is from production. No shortness of breath Neurologic: Patient denied any numbness or tingling headache. Musculoskeletal: Patient denies any complaints of joint swelling or deformity. Skin: Negative Psychiatric: Negative Endocrine: No heat or cold intolerance. No recent weight gain. Genitourinary: No dysuria or hematuria. All other 14 point ROS negative except the above Past Medical History Past Medical History: Coronary Artery Disease (CAD), Deep Vein Thrombosis (DVT) , Eye Disorder, Hyperlipidemia, Hypertension, Thyroid Disorder Additional Past Medical History / Comment(s): GLAUCOMA, HX OF SKIN CA, PAST AFIB , HIATAL HERNIA(HAD SX), ARTHRITIS History of Any Multi-Drug Resistant Organisms: None Reported Past Surgical History: Appendectomy, Coronary Bypass/CABG, Heart Catheterization With Stent, Hysterectomy, Joint Replacement, Orthopedic Surgery Additional Past Surgical History / Comment(s): RT KN EE ARTHROSCOPY, MICHAEL KNEE'S REPLACED, thyroid surgery x 2, MAGNUS, EPS, CARDIOVERSION, CABG TRIPLE VESSEL, STENT X1, SX FOR HIATAL HERNIA, COLONOSCOPY. Past Anesthesia/Blood Transfusion Reactions: No Reported Reaction Date of Last Stent Placement:: 2012 Past Psychological History: No Psychological Hx Reported Additional Psychological History / Comment(s): PT LIVES WITH HER . PT IS INDEPENDANT STILL DRIVES. NO HOME CARE SERVICES RECIEVED. NO MEDICAL EQUIPMENT. LIVES IN 2 STORY HOME BUT STAYS ON FIRST FLOOR. HAS 1 PORCH STEP. Smoking Status: Never smoker Past Alcohol Use History: None Reported Past Drug Use History: None Reported - Past Family History Mother Additional Family Medical History / Comment(s): " OF OLD AGE IN HER 90'S" Father Additional Family Medical History / Comment(s): " OF OLD AGE IN HIS 90'S" Sister(s) Additional Family Medical History / Comment(s): HEART CONDITIONS- PTS UNSURE OF WHAT Brother(s) Family Medical History: Cancer Additional Family Medical History / Comment(s): HEART CONDITIONS- PTS UNSURE OF WHAT Medications and Allergies Home Medications Medication Instructions Recorded Confirmed Type Aspirin 81 mg PO DAILY 08/01/14 10/02/17 History Atenolol [Tenormin] 50 mg PO BID 08/01/14 10/02/17 History Levothyroxine Sodium [Synthroid] 75 mcg PO DAILY 08/01/14 10/02/17 History Losartan [Cozaar] 50 mg PO HS 08/01/14 10/02/17 History Atorvastatin [Lipitor] 40 mg PO HS 12/20/16 10/02/17 History Apixaban [Eliquis] 2.5 mg PO BID 06/14/17 10/02/17 History Furosemide [Lasix] 20 mg PO BID@0800,1400 10/02/17 10/02/17 History Potassium Chloride [K-Tab ER] 20 meq PO MOWEFR 10/02/17 10/02/17 History amLODIPine [Norvasc] 5 mg PO HS 10/02/17 10/02/17 History Allergies Allergy/AdvReac Type Severity Reaction Status Date / Time hydroxyzine HCl Allergy Rash/Hives Verified 10/02/17 12:20 [From Vistaril] hydroxyzine pamoate Allergy Rash/Hives Verified 10/02/17 12:20 [From Vistaril] Physical Exam Vitals: Vital Signs Temp Pulse Pulse Resp BP BP Pulse Ox 10/02/17 20:00 16 10/02/17 19:50 98.1 F 80 16 126/75 95 10/02/17 14:51 98.2 F 71 14 140/74 95 10/02/17 14:38 97.9 F 10/02/17 14:21 87 18 120/69 97 10/02/17 12:51 89 16 121/67 97 10/02/17 11:08 98.5 F 90 16 143/65 97 Intake and Output 10/02/17 10/02/17 10/02/17 06:59 14:59 22:59 Other: # Voids 1 Weight 55.3 kg Patient Weight 10/03/17 06:59 Weight 55.3 kg PHYSICAL EXAMINATION: Patient is lying in the bed comfortably, no acute distress, awake alert and oriented.. HEENT: Normocephalic. Neck is supple. Pupils reactive. Nostrils clear. Oral cavity is moist. Ears reveal no drainage. Neck reveals no JVD, carotid bruits, or thyromegaly. CHEST EXAMINATION: Trachea is central. Symmetrical expansion. Lung hand clear to auscultation and percussion. CARDIAC: Normal S1, S2 with no gallops. No murmurs ABDOMEN: Soft. Bowel sounds normal. No organomegaly. No abdominal bruits. Extremities: reveal no edema. No clubbing or cyanosis Neurologically awake, alert, oriented x3 with well-coordinated movements. No focal deficits noted Skin: No rash or skin lesions. Psychiatric: Coperative. Nonsuicidal Musculoskeletal: No joint swelling or deformity. Normal range of motion. Results CBC & Chem 7: 10/02/17 12:08 10/02/17 12:08 Labs: Abnormal Lab Results - Last 24 Hours (Table) 10/02/17 10/02/17 Range/Units 12:08 12:08 RDW 15.6 H (11.5-15.5) % AST 81 H (14-36) U/L ALT 55 H (9-52) U/L Alkaline Phosphatase 267 H (38-126) U/L Total Protein 5.9 L (6.3-8.2) g/dL Albumin 3.2 L (3.5-5.0) g/dL Thrombosis Risk Factor Assmnt - Choose All That Apply Any of the Below Risk Factors Present?: Yes Each Risk Factor Represents 3 Points: Age 75 years or older Thrombosis Risk Factor Assessment Total Risk Factor Score: 3 Thrombosis Risk Factor Assessment Level: Moderate Risk Assessment and Plan Assessment: Atypical chest pain. Rule out ACS. Elevated liver enzymes. Ultrasound abdomen was ordered to rule out acute cholecystitis Coronary artery disease with history of CABG 10 years ago Chronic atrial fibrillation on anticoagulation Hypertension Hyperlipidemia Hypothyroidism glaucoma Hiatal hernia Degenerative joint disease Plan: Patient will be continued on telemetry monitoring. Serial EKG and troponin were ordered. Will check US OF THE LIVER AND BILE DUCTS. Patient currently denied any epigastric pain/of chest pain. No nausea vomiting. No fever no chills. Cardiology was consulted. Continue with home medications and follow closely. Further recommendations based on the clinical course. Time with Patient: Greater than 30
[2017-10-02] MEDS: APIXABAN 2.5 MG TABLET PO SCH (23:14)
[2017-10-03 00:52] LABS: Creatine Kinase 93 U/L (30-135)
[2017-10-03 01:03] LABS: Creatine Kinase MB 0.6 ng/mL (0.0-2.4); Troponin I <0.012 ng/mL (0.000-0.034)
[2017-10-03 07:26] LABS: ALT 50 U/L (9-52); AST 43 U/L (14-36); Albumin 3.1 g/dL (3.5-5.0); Alkaline Phosphatase 234 U/L (38-126); Anion Gap 6 mmol/L; Blood Urea Nitrogen 16 mg/dL (7-17); Calcium 8.9 mg/dL (8.4-10.2); Carbon Dioxide 32 mmol/L (22-30); Chloride 105 mmol/L (98-107); Cholesterol 141 mg/dL (<200); Glucose 91 mg/dL (74-99); HDL Cholesterol 47 mg/dL (40-60); LDL Cholesterol,Calculated 72 mg/dL (0-99); Potassium 4.3 mmol/L (3.5-5.1); Sodium 143 mmol/L (137-145); Total Bilirubin 0.6 mg/dL (0.2-1.3); Total Protein 5.8 g/dL (6.3-8.2); Triglycerides 109 mg/dL (<150)
[2017-10-03] MEDS: LEVOTHYROXINE 75 MCG TAB PO SCH (08:33)
[2017-10-03] MEDS: ASPIRIN 81 MG PO SCH (08:33)
[2017-10-03] MEDS: FUROSEMIDE 20 MG TAB PO SCH ×2 (08:33→16:37)
[2017-10-03] MEDS: APIXABAN 2.5 MG TABLET PO SCH ×2 (08:33→20:15)
[2017-10-03] MEDS: METOPROLOL TARTRATE 25 MG TAB PO SCH (08:33)
--- NOTE | 2017-10-03 08:52 | US ---
EXAMINATION TYPE: US abdomen limited DATE OF EXAM: 10/03/2017 COMPARISON: Previous study dated 07/14/2016. CLINICAL HISTORY: Elevated liver enzymes. EXAM MEASUREMENTS: Liver Length: 13.6 cm Gallbladder Wall: 0.2 cm CBD: 1.3 cm Right Kidney: 10.8 x 4.3 x 4.3 cm Pancreas: prominent pancreatic duct at 0.3cm; dilated CBD at head Liver: wnl Gallbladder: sludge noted in fundus in LLD position; enlarged appearance as >13.0cm with added lengt h measures. Evidence for sonographic Maxwell's sign: No CBD: abnormally dilated throughout as should be < or = 1.0cm for 8th decade of life Right Kidney: prominent renal hilum as > 1.0cm; lateral cortical cyst = 4.7 x 3.9 x 3.0cm IVC: prominent The pancreatic duct is mildly prominent measuring 3.4 mm. The liver is normal in size without evidence of biliary dilatation. There is sludge within the gallbladder. The gallbladder wall measures 2 mm. The distal common hepatic duct measures 1.3 cm. This is dilated. There is no sonographic Maxwell's sign. There is a slightly irregular cystic lesion in the lower pole of the right kidney. IMPRESSION: 1. PROMINENCE OF THE DISTAL COMMON HEPATIC AND PANCREATIC DUCT. 2. SLUDGE WITHIN THE GALLBLADDER. 3. CYSTIC DISEASE OF THE RIGHT KIDNEY. 4. ERCP VERSUS MRCP WOULD BE SUGGESTED.
[2017-10-03] MEDS ORDERED: ASPIRIN 325 MG TAB PO SCH (09:00)
--- NOTE | 2017-10-03 10:03 | P.CRDCN ---
History of Present Illness Consult date: 10/03/17 History of present illness: Mrs. Huerta is a very pleasant 87-year-old female past medical history significant for chronic persistent atrial fibrillation on long-term anticoagulation, coronary artery disease with subsequent bypass grafting, dyslipidemia and hypertension. She had a three-vessel bypass in 2006 with a LAU to the LAD, SVG to RCA, and SVG to OM1. Since then she underwent stenting of the SVG to the RCA in 2008. She sees Dr. Gaytan in the office. She presented to the hospital yesterday with epigastric pain. This was not associated with shortness of breath, dizziness, palpitations, nausea or vomiting. She states it was a burning sensation and tight. She denies pain in the chest, back, neck, arm or jaw. The pain has remained localized to the epigastric region. She is undergoing GI workup with ultrasound of the abdomen currently. She has an elevated alk phos as well as liver enzymes on admission. Cardiac enzymes are negative 3. EKG reveals atrial fibrillation with controlled ventricular response. Heart rate is 95. No acute ST or T-wave abnormalities evident. Most recent echocardiogram was performed November 2016 revealed preserved left ventricular systolic function with moderate tricuspid regurg as well as mild to moderate mitral regurg. Current cardiac medications include Lasix 20 mg twice a day, Norvasc 5 mg daily , potassium Wednesday, losartan 50 mg daily, atorvastatin 40 mg daily, atenolol 50 Maura's twice a day, aspirin 81 mg daily and Eliquis 2.5 mg twice a day.. Review of systems At the time of exam: CONSTITUTIONAL: Denies fever. Denies chills. EYES: Denies blurred vision. Denies vision changes. Denies eye pain. EARS, NOSE, MOUTH & THROAT: Denies headache. Denies sore throat. Denies ear pain. CARDIOVASCULAR: Denies chest pain. Denies shortness of breath. Denies orthopnea. Denies PND. Denies palpitations. RESPIRATORY: Denies cough. GASTROINTESTINAL: Denies abdominal pain. Denies diarrhea. Denies constipation. Denies nausea. Denies vomiting. MUSCULOSKELETAL: Denies myalgias. INTEGUMENTARY: Denies pruitis. Denies rash. NEUROLOGIC: Denies numbness. Denies tingling. Denies weakness. PSYCHIATRIC: Denies anxiety. Denies depression. ENDOCRINE: Denies fatigue. Denies weight change. Denies polydipsia. Denies polyurina. GENITOURINARY: Denies burning, hematuria or urgency with micturation. HEMATOLOGIC: Denies history of anemia. Denies bleeding. Physical exam Blood pressure 144/79 heart rate 82 afebrile GENERAL: This is a 87-year-old female in no apparent distress at the time of my examination. HEENT: Head is atraumatic, normocephalic. Pupils are equal, round. Sclerae anicteric. Conjunctivae are clear. Mucous membranes of the mouth are moist. Neck is supple. There is no jugular venous distention. No carotid bruit is heard. LUNGS: Clear to auscultation no wheezes, rales or rhonchi. No chest wall tenderness is noted on palpation or with deep breathing. HEART: Irregular rate and rhythm with systolic murmur, no rubs or gallops. S1 and S2 heard. ABDOMEN: Soft, nontender. Bowel sounds are heard. No organomegaly noted. EXTREMITIES: No evidence of peripheral edema and no calf tenderness noted. VASCULAR: Radial and dorsalis pedis pulses palpated, no evidence of clubbing. NEUROLOGIC: Patient is awake, alert and oriented x3. ASSESSMENT 1. Epigastric pain 2. History of coronary artery disease with subsequent bypass grafting as well a stenting of one bypass graft. 3. Chronic persistent atrial fibrillation on long-term anticoagulation 4. Dyslipidemia 5. Hypertension PLAN Continue with GI workup. An acute coronary event has been ruled out and her heart rate remains controlled on current medication regimen. Follow-up with Dr. Gaytan as an outpatient. Thank you kindly for this consultation. Nurse Practitioner note has been reviewed, I agree with a documented findings and plan of care. Patient was seen and examined. Past Medical History Past Medical History: Coronary Artery Disease (CAD), Deep Vein Thrombosis (DVT) , Eye Disorder, Hyperlipidemia, Hypertension, Thyroid Disorder Additional Past Medical History / Comment(s): GLAUCOMA, HX OF SKIN CA, PAST AFIB , HIATAL HERNIA(HAD SX), ARTHRITIS History of Any Multi-Drug Resistant Organisms: None Reported Past Surgical History: Appendectomy, Coronary Bypass/CABG, Heart Catheterization With Stent, Hysterectomy, Joint Replacement, Orthopedic Surgery Additional Past Surgical History / Comment(s): RT KN EE ARTHROSCOPY, MICHAEL KNEE'S REPLACED, thyroid surgery x 2, MAGNUS, EPS, CARDIOVERSION, CABG TRIPLE VESSEL, STENT X1, SX FOR HIATAL HERNIA, COLONOSCOPY. Past Anesthesia/Blood Transfusion Reactions: No Reported Reaction Date of Last Stent Placement:: 2012 Past Psychological History: No Psychological Hx Reported Additional Psychological History / Comment(s): PT LIVES WITH HER . PT IS INDEPENDANT STILL DRIVES. NO HOME CARE SERVICES RECIEVED. NO MEDICAL EQUIPMENT. LIVES IN 2 STORY HOME BUT STAYS ON FIRST FLOOR. HAS 1 PORCH STEP. Smoking Status: Never smoker Past Alcohol Use History: None Reported Past Drug Use History: None Reported - Past Family History Mother Additional Family Medical History / Comment(s): " OF OLD AGE IN HER 90'S" Father Additional Family Medical History / Comment(s): " OF OLD AGE IN HIS 90'S" Sister(s) Additional Family Medical History / Comment(s): HEART CONDITIONS- PTS UNSURE OF WHAT Brother(s) Family Medical History: Cancer Additional Family Medical History / Comment(s): HEART CONDITIONS- PTS UNSURE OF WHAT Medications and Allergies Home Medications Medication Instructions Recorded Confirmed Type Aspirin 81 mg PO DAILY 08/01/14 10/02/17 History Atenolol [Tenormin] 50 mg PO BID 08/01/14 10/02/17 History Levothyroxine Sodium [Synthroid] 75 mcg PO DAILY 08/01/14 10/02/17 History Losartan [Cozaar] 50 mg PO HS 08/01/14 10/02/17 History Atorvastatin [Lipitor] 40 mg PO HS 12/20/16 10/02/17 History Apixaban [Eliquis] 2.5 mg PO BID 06/14/17 10/02/17 History Furosemide [Lasix] 20 mg PO BID@0800,1400 10/02/17 10/02/17 History Potassium Chloride [K-Tab ER] 20 meq PO MOWEFR 10/02/17 10/02/17 History amLODIPine [Norvasc] 5 mg PO HS 10/02/17 10/02/17 History Allergies Allergy/AdvReac Type Severity Reaction Status Date / Time hydroxyzine HCl Allergy Rash/Hives Verified 10/02/17 12:20 [From Vistaril] hydroxyzine pamoate Allergy Rash/Hives Verified 10/02/17 12:20 [From Vistaril] Physical Exam Vitals: Vital Signs Temp Pulse Pulse Resp BP BP Pulse Ox 10/03/17 04:00 97.9 F 82 16 144/79 95 10/03/17 03:43 16 10/03/17 00:00 16 10/02/17 23:56 98.4 F 79 16 106/64 98 10/02/17 20:00 16 10/02/17 19:50 98.1 F 80 16 126/75 95 10/02/17 14:51 98.2 F 71 14 140/74 95 10/02/17 14:38 97.9 F 10/02/17 14:21 87 18 120/69 97 10/02/17 12:51 89 16 121/67 97 10/02/17 11:08 98.5 F 90 16 143/65 97 Intake and Output 10/02/17 10/03/17 10/03/17 22:59 06:59 14:59 Other: # Voids 1 1 Results 10/02/17 12:08 10/03/17 06:27 Cardiac Enzymes 10/02/17 10/02/17 10/02/17 Range/Units 12:08 12:08 17:48 AST 81 H (14-36) U/L CK-MB (CK-2) 0.9 0.7 (0.0-2.4) ng/mL Troponin I <0.012 <0.012 (0.000-0.034) ng/mL 10/03/17 10/03/17 Range/Units 00:09 06:27 AST 43 H (14-36) U/L CK-MB (CK-2) 0.6 (0.0-2.4) ng/mL Troponin I <0.012 (0.000-0.034) ng/mL Coagulation 10/02/17 Range/Units 12:08 PT 10.8 (9.0-12.0) sec APTT 23.8 (22.0-30.0) sec Lipids 10/03/17 Range/Units 06:27 Triglycerides 109 (<150) mg/dL Cholesterol 141 (<200) mg/dL HDL Cholesterol 47 (40-60) mg/dL CBC 10/02/17 Range/Units 12:08 WBC 6.7 (3.8-10.6) k/uL RBC 4.69 (3.80-5.40) m/uL Hgb 12.7 (11.4-16.0) gm/dL Hct 39.3 (34.0-46.0) % Plt Count 171 (150-450) k/uL Comprehensive Metabolic Panel 10/02/17 10/03/17 Range/Units 12:08 06:27 Sodium 143 143 (137-145) mmol/L Potassium 3.7 4.3 (3.5-5.1) mmol/L Chloride 106 105 (98-107) mmol/L Carbon Dioxide 30 32 H (22-30) mmol/L BUN 15 16 (7-17) mg/dL Creatinine 0.65 0.66 (0.52-1.04) mg/dL Glucose 90 91 (74-99) mg/dL Calcium 8.8 8.9 (8.4-10.2) mg/dL AST 81 H 43 H (14-36) U/L ALT 55 H 50 (9-52) U/L Alkaline Phosphatase 267 H 234 H (38-126) U/L Total Protein 5.9 L 5.8 L (6.3-8.2) g/dL Albumin 3.2 L 3.1 L (3.5-5.0) g/dL Current Medications Generic Name Dose Route Start Last Admin Trade Name Freq PRN Reason Stop Dose Admin Amlodipine Besylate 5 mg 10/03/17 21:00 Norvasc PO HS [facility] Apixaban 2.5 mg 10/02/17 22:30 10/02/17 23:14 Eliquis PO 2.5 mg BID ROSSY Administration Aspirin 81 mg 10/03/17 09:00 Aspirin PO DAILY [facility] Atorvastatin Calcium 40 mg 10/03/17 21:00 Lipitor PO HS ROSSY Furosemide 20 mg 10/03/17 08:00 Lasix PO BID@0800,1400 [facility] Levothyroxine Sodium 75 mcg 10/03/17 09:00 Synthroid PO DAILY [facility] Losartan Potassium 50 mg 10/03/17 21:00 Cozaar PO HS [facility] Metoprolol Tartrate 25 mg 10/02/17 21:00 10/02/17 20:24 Lopressor PO 25 mg BID ROSSY Administration Morphine Sulfate 4 mg 10/02/17 12:57 Morphine Sulfate (Inj) IV Q5M PRN Chest Pain Nitroglycerin 0.4 mg 10/02/17 12:57 Nitrostat SUBLINGUAL Q5M PRN Chest Pain Potassium Chloride 20 meq 10/04/17 09:00 K-Dur 20 PO MOWEFR ROSSY Intake and Output 10/02/17 10/03/17 10/03/17 22:59 06:59 14:59 Other: # Voids 1 1 10/02/17 12:08 10/03/17 06:27
[2017-10-03] MEDS: ATENOLOL 50 MG TAB PO SCH (20:15)
[2017-10-03] MEDS ORDERED: LOSARTAN 50 MG TAB PO SCH (21:00)
[2017-10-03] MEDS ORDERED: amLODIPine 5 MG TAB PO SCH (21:00)
[2017-10-03] MEDS ORDERED: ATORVASTATIN 40 MG TAB PO SCH (21:00)
--- NOTE | 2017-10-03 22:02 | P.CONS ---
History of Present Illness - Reason for Consult Consult date: 10/03/17 Atypical chest pain. - History of Present Illness The patient is an 87-year-old female with a known history of coronary artery disease status post coronary artery bypass graft and history of stent placement , atrial fibrillation on anticoagulation, hypertension, hyperlipidemia and hypothyroidism as well as hiatal hernia came to ER with complaints of chest pain. Patient does have pain mainly in the epigastric area across the upper abdomen. Patient was sitting on the couch when she had this pain and which lasted for about 30 minutes. No associated nausea or vomiting. No diaphoresis. No headache or dizziness or lightheadedness. No radiation of the pain. Due to prior history of significant heart disease family wanted her to go to ER. Otherwise patient denied any recent illness or sick contacts at home. No recent travel. Patient denied any nausea vomiting. No diarrhea. No constipation. Chest x-ray showed cardiomegaly, COPD and left basilar airspace disease. EKG showed atrial fibrillation. Troponin 1 negative. US showed sludge in GB and prominence of common hepatic duct. Transaminases and Alkpase slightly elevated. The patient was evaluated by cardiology and she will F/U by her reel repairer as outpatient. Further GI workup was recommended. Review of Systems Constitutional: Denies fever, chills, sweats, weight gain, or loss. HEENT: Negative for migraines, blurred vision or loss, earaches, drainage, tinnitus, oral mucosal lesions, dysphagia, or odynophagia. Cardiac: Negative for chest pain, arrhythmias, or palpitation. Respiratory: Negative for shortness of breath, hemoptysis, cough, or sputum production. Gastrointestinal: See HPI for pertinent findings. Genitourinary: Negative for hematuria, urgency, frequency, polyuria, dysuria. Musculoskeletal: Negative for muscle aches, swelling, arthritis, and arthralgias. Neurologic: Negative for stroke or TIA. Endocrine: Negative for thyroid problems. Skin: Negative for rash or itching. Psychiatric: Negative history for depression and anxiety Past Medical History Past Medical History: Coronary Artery Disease (CAD), Deep Vein Thrombosis (DVT) , Eye Disorder, Hyperlipidemia, Hypertension, Thyroid Disorder Additional Past Medical History / Comment(s): GLAUCOMA, HX OF SKIN CA, PAST AFIB , HIATAL HERNIA(HAD SX), ARTHRITIS History of Any Multi-Drug Resistant Organisms: None Reported Past Surgical History: Appendectomy, Coronary Bypass/CABG, Heart Catheterization With Stent, Hysterectomy, Joint Replacement, Orthopedic Surgery Additional Past Surgical History / Comment(s): RT KN EE ARTHROSCOPY, MICHAEL KNEE'S REPLACED, thyroid surgery x 2, MAGNUS, EPS, CARDIOVERSION, CABG TRIPLE VESSEL, STENT X1, SX FOR HIATAL HERNIA, COLONOSCOPY. Past Anesthesia/Blood Transfusion Reactions: No Reported Reaction Date of Last Stent Placement:: 2012 Past Psychological History: No Psychological Hx Reported Additional Psychological History / Comment(s): PT LIVES WITH HER . PT IS INDEPENDANT STILL DRIVES. NO HOME CARE SERVICES RECIEVED. NO MEDICAL EQUIPMENT. LIVES IN 2 STORY HOME BUT STAYS ON FIRST FLOOR. HAS 1 PORCH STEP. Smoking Status: Never smoker Past Alcohol Use History: None Reported Past Drug Use History: None Reported - Past Family History Mother Additional Family Medical History / Comment(s): " OF OLD AGE IN HER 90'S" Father Additional Family Medical History / Comment(s): " OF OLD AGE IN HIS 90'S" Sister(s) Additional Family Medical History / Comment(s): HEART CONDITIONS- PTS UNSURE OF WHAT Brother(s) Family Medical History: Cancer Additional Family Medical History / Comment(s): HEART CONDITIONS- PTS UNSURE OF WHAT Medications and Allergies Home Medications Medication Instructions Recorded Confirmed Type Aspirin 81 mg PO DAILY 08/01/14 10/02/17 History Atenolol [Tenormin] 50 mg PO BID 08/01/14 10/02/17 History Levothyroxine Sodium [Synthroid] 75 mcg PO DAILY 08/01/14 10/02/17 History Losartan [Cozaar] 50 mg PO HS 08/01/14 10/02/17 History Atorvastatin [Lipitor] 40 mg PO HS 12/20/16 10/02/17 History Apixaban [Eliquis] 2.5 mg PO BID 06/14/17 10/02/17 History Furosemide [Lasix] 20 mg PO BID@0800,1400 10/02/17 10/02/17 History Potassium Chloride [K-Tab ER] 20 meq PO MOWEFR 10/02/17 10/02/17 History amLODIPine [Norvasc] 5 mg PO HS 10/02/17 10/02/17 History Allergies Allergy/AdvReac Type Severity Reaction Status Date / Time hydroxyzine HCl Allergy Rash/Hives Verified 10/02/17 12:20 [From Vistaril] hydroxyzine pamoate Allergy Rash/Hives Verified 10/02/17 12:20 [From Vistaril] Physical Exam Vitals: Vital Signs Temp Pulse Resp BP Pulse Ox 10/03/17 16:00 98.5 F 60 16 145/81 95 10/03/17 12:00 98.4 F 94 14 102/52 94 L 10/03/17 08:00 98.7 F 85 14 124/66 95 10/03/17 04:00 97.9 F 82 16 144/79 95 10/03/17 03:43 16 10/03/17 00:00 16 10/02/17 23:56 98.4 F 79 16 106/64 98 10/02/17 20:00 16 10/02/17 19:50 98.1 F 80 16 126/75 95 Intake and Output 10/03/17 10/03/17 10/03/17 06:59 14:59 22:59 Other: Voiding Method Toilet # Voids 1 General appearance: The patient is alert, oriented, in no acute distress. HET: Head is normocephalic and atraumatic. Pupils are equal and reactive. Oropharynx is clear without lesions. Neck: Supple without lymphadenopathy. Trachea midline. Heart: S1 S2. Regular rate and rhythm. Lungs: No crackles or wheezes are heard. Abdomen: Soft, nontender, nondistended with bowel sounds. No peritoneal signs. No palpable organomegaly or masses. Extremities: Normal skin color and turgor. No cyanosis, rash, ulceration, clubbing, or edema. Radial and pedal pulses are 2/4 bilaterally. Neurological: No focal deficits. Strength and sensation are grossly intact. Results CBC & Chem 7: 10/02/17 12:08 10/03/17 06:27 Labs: Abnormal Lab Results - Last 24 Hours (Table) 10/03/17 Range/Units 06:27 Carbon Dioxide 32 H (22-30) mmol/L AST 43 H (14-36) U/L Alkaline Phosphatase 234 H (38-126) U/L Total Protein 5.8 L (6.3-8.2) g/dL Albumin 3.1 L (3.5-5.0) g/dL Assessment and Plan Assessment: Epigastric and atypical chest pain could be on the basis of PUD or GB disease. Slight prominence of the bile duct and elevated liver enzymes suggest a possible CBD stone. Plan: Will repeat liver and pancreatic enzymes in AM. I will consider an ERCP based on her symptoms and those results.
--- NOTE | 2017-10-03 23:08 | P.PN ---
Subjective Progress Note Date: 10/03/17 Principal diagnosis: elevated liver enzymes and chest pain Patient is a 87-year-old female with a known history of coronary artery disease status post coronary artery bypass graft and history of stent placement, atrial fibrillation on anticoagulation, hypertension, hyperlipidemia and hypothyroidism as well as hiatal hernia came to ER with complaints of chest pain. Patient does have pain mainly in the epigastric area across the upper abdomen. Patient was sitting on the couch when she had this pain and which lasted for about 30 minutes. No associated nausea or vomiting. No diaphoresis. No headache or dizziness or lightheadedness. No radiation of the pain. Due to prior history of significant heart disease family wanted her to go to ER. Otherwise patient denied any recent illness or sick contacts at home. No recent travel. Patient denied any nausea vomiting. No diarrhea. No constipation. Chest x-ray showed cardiomegaly, COPD and left basilar airspace disease. EKG showed atrial fibrillation Troponin 3 negative 10/03/2017 Patient currently denied any chest pain or abdominal pain Ultrasound of abdomen showeddilated common bile duct. Gastroenterology has been consulted. Otherwise no complaints of chest or shortness of breath. No acute overnight issues .All other review of systems negative except the above Current medications reviewed. Objective - Vital Signs Vital signs: Vital Signs Temp 98.3 F 10/03/17 19:57 Pulse 87 10/03/17 22:57 Resp 18 10/03/17 22:57 BP 119/66 10/03/17 22:57 Pulse Ox 95 10/03/17 22:57 Intake & Output 10/03/17 10/03/17 10/04/17 06:59 18:59 06:59 Other: Voiding Method Toilet Toilet # Voids 1 1 - Exam PHYSICAL EXAMINATION: Patient is lying in the bed comfortably, no acute distress, awake alert and oriented.. HEENT: Normocephalic. Neck is supple. Pupils reactive. Nostrils clear. Oral cavity is moist. Ears reveal no drainage. Neck reveals no JVD, carotid bruits, or thyromegaly. CHEST EXAMINATION: Trachea is central. Symmetrical expansion. Lung hand clear to auscultation and percussion. CARDIAC: Normal S1, S2 with no gallops. No murmurs ABDOMEN: Soft. Bowel sounds normal. No organomegaly. No abdominal bruits. Extremities: reveal no edema. No clubbing or cyanosis Neurologically awake, alert, oriented x3 with well-coordinated movements. No focal deficits noted Skin: No rash or skin lesions. Psychiatric: Coperative. Nonsuicidal Musculoskeletal: No joint swelling or deformity. Normal range of motion. - Labs CBC & Chem 7: 10/02/17 12:08 10/03/17 06:27 Labs: Abnormal Lab Results - Last 24 Hours (Table) 10/03/17 Range/Units 06:27 Carbon Dioxide 32 H (22-30) mmol/L AST 43 H (14-36) U/L Alkaline Phosphatase 234 H (38-126) U/L Total Protein 5.8 L (6.3-8.2) g/dL Albumin 3.1 L (3.5-5.0) g/dL Assessment and Plan Assessment: Atypical chest pain. Ruled out ACS. Elevated liver enzymes. possible CBD stone. Coronary artery disease with history of CABG 10 years ago Chronic atrial fibrillation on anticoagulation Hypertension Hyperlipidemia Hypothyroidism glaucoma Hiatal hernia Degenerative joint disease Plan: cardiac Workup is negative at this time. Patient is still having elevated liver enzymes Ultrasound of the abdomen showed dilated CBD possible stone suspected We will follow up liver enzymesand gastroenterology recommends ERCPbased on clinical course.
[2017-10-04 07:35] LABS: ALT 42 U/L (9-52); AST 30 U/L (14-36); Alkaline Phosphatase 216 U/L (38-126); Amylase 72 U/L (30-110); Lipase 34 U/L (23-300)
[2017-10-04 08:34] VITALS: RESP 16
[2017-10-04] MEDS ORDERED: PANTOPRAZOLE 40 MG/10 ML VIAL IVP SCH (09:00)
[2017-10-04] MEDS ORDERED: POTASSIUM CHLORIDE ER 20 MEQ TAB.ER PO SCH (09:00)
[2017-10-04 11:56] VITALS: BP 132/69; PULSE 96; TEMP 99
[2017-10-04] MEDS: FUROSEMIDE 20 MG TAB PO SCH (13:16)
[2017-10-04] MEDS: ATENOLOL 50 MG TAB PO SCH (13:16)
[2017-10-04] MEDS: LEVOTHYROXINE 75 MCG TAB PO SCH (13:16)
[2017-10-04] MEDS: APIXABAN 2.5 MG TABLET PO SCH (13:16)
[2017-10-04] MEDS: ASPIRIN 81 MG PO SCH (13:19)
--- NOTE | 2017-10-04 13:22 | P.PN ---
Subjective Progress Note Date: 10/04/17 Patient seen and examined at the bedside on rounds with Dr. Mcduffie. The patient originally presented to the emergency room with epigastric pain/chest pain. Cardiology evaluated the patient and an acute coronary event has been ruled out. Abdominal ultrasound was completed which revealed prominence of the distal common hepatic and pancreatic duct, sludge within the gallbladder, and cystic disease of the right kidney. Gastroenterology was consulted. There is a possibility of a common bile duct stone. Patient may undergo ERCP per GI. AST is down from 43 to 30. ALT is down from 50 to 42. Amylase this morning is 72 and lipase is 34. Patient denies abdominal pain at this time. Denies nausea or vomiting. Objective - Vital Signs Vital signs: Vital Signs Temp 98.2 F 10/04/17 04:00 Pulse 89 10/04/17 04:00 Resp 18 10/04/17 04:00 BP 115/64 10/04/17 04:00 Pulse Ox 95 10/04/17 04:00 Intake & Output 10/03/17 10/04/17 10/04/17 18:59 06:59 18:59 Other: Voiding Method Toilet Toilet # Voids 1 - Exam GENERAL: This is a 87 year-old female in no apparent distress at the time of examination. Pleasant and cooperative. HEENT: Head is atraumatic, normocephalic. Pupils are equal, round, and reactive to light. Sclerae anicteric. Conjunctivae are clear. Mucus membranes of the mouth are moist. Neck is supple. RESPIRATORY: Clear to ausculation. No wheezes, rales, or rhonchi. No use of accessory muscles. Patient maintaining oxygen saturation greater than 92%. No chest wall tenderness is noted on palpation or with deep breathing. CARDIOVASCULAR: Irregular. S1 and S2 noted. Systolic murmur auscultated. No JVD noted. No S3 or S4 noted. GASTROINTESTINAL: No distention noted. Abdomen soft and round. Normal active bowel sounds auscultated x 4 quadrants. No pain or tenderness noted upon palpation. INTEGUMENTARY: No cyanosis. No jaundice. No rashes noted. No cellulitis noted. EXTREMITIES: 2+ peripheral pulses. No evidence of peripheral edema. No calf tenderness noted. NEUROLOGIC: Cranial nerves II-XII intact. PSYCHIATRIC: Awake, alert, and oriented X 3. Appropriate affect. Intact judgement and insight. - Labs CBC & Chem 7: 10/02/17 12:08 10/03/17 06:27 Labs: Abnormal Lab Results - Last 24 Hours (Table) 10/04/17 Range/Units 06:39 Alkaline Phosphatase 216 H (38-126) U/L Assessment and Plan Plan: ASSESSMENT: Atypical chest pain, acute coronary syndrome ruled out Elevated liver enzymes with possible common bile duct stone Coronary artery disease with previous history of CABG Chronic atrial fibrillation on long-term anticoagulation with Eliquis Essential hypertension Hyperlipidemia Hypothyroidism PLAN: -Gastroenterology on consult. Await further recommendations and input -Home meds as appropriate -Monitor labs -GI prophylaxis: Protonix 40 mg IV daily -DVT prophylaxis: Eliquis 2.5mg PO BID -Monitor vital signs and address as appropriate -Discharge planning: Patient to return home -Further recommendations pending patient's course Nurse practitioner note has been reviewed by physician. Signing provider agrees with the documented findings, assessment, and plan of care.
--- NOTE | 2017-10-04 13:33 | P.DS ---
Providers Date of admission: 10/02/17 12:57 Expected date of discharge: 10/04/17 Attending physician: Naveen Mcduffie Consults: 10/02/17 12:57 Consult Physician Urgent Consulting Provider: Laurel Gaytan Consult Reason/Comments: cp Do you want consulting provider notified?: Yes 10/03/17 14:30 Consult Physician Routine Consulting Provider: Dimitris Win Consult Reason/Comments: abd. pain Do you want consulting provider notified?: Yes Primary care physician: Naveen Mcduffie [facility] Course: Patient is a 87-year-old female with a known history of coronary artery disease status post coronary artery bypass graft and history of stent placement, atrial fibrillation on anticoagulation, hypertension, hyperlipidemia and hypothyroidism as well as hiatal hernia came to ER with complaints of chest pain. Patient does have pain mainly in the epigastric area across the upper abdomen. Patient was sitting on the couch when she had this pain and which lasted for about 30 minutes. No associated nausea or vomiting. No diaphoresis. No headache or dizziness or lightheadedness. No radiation of the pain. Due to prior history of significant heart disease family wanted her to go to ER. Otherwise patient denied any recent illness or sick contacts at home. No recent travel. Patient denied any nausea vomiting. No diarrhea. No constipation. Chest x-ray showed cardiomegaly, COPD and left basilar airspace disease. EKG showed atrial fibrillation Troponin 1 negative Patient seen and examined at the bedside on rounds with Dr. Mcduffie. Cardiology evaluated the patient and an acute coronary event has been ruled out. Abdominal ultrasound was completed which revealed prominence of the distal common hepatic and pancreatic duct, sludge within the gallbladder, and cystic disease of the right kidney. Gastroenterology was consulted. There is a possibility of a common bile duct stone. AST is down from 43 to 30. ALT is down from 50 to 42. Amylase this morning is 72 and lipase is 34. Patient denies abdominal pain at this time. Denies nausea or vomiting. The patient was deemed stable for discharge. She is to follow up on an outpatient basis with Dr. Mcduffie, Dr. Win, and Dr. Gaytan. No intervention at this time per GI. She is to resume her home medications Discharge diagnosis Atypical chest pain, acute coronary syndrome ruled out Elevated liver enzymes with possible common bile duct stone, trending down at time of discharge Coronary artery disease with previous history of CABG Chronic atrial fibrillation on long-term anticoagulation with Eliquis Essential hypertension Hyperlipidemia Hypothyroidism Nurse practitioner note has been reviewed by physician. Signing provider agrees with the documented findings, assessment, and plan of care. Patient Condition at Discharge: Stable Plan - Discharge Summary Discharge Rx Participant: No New Discharge Prescriptions: Continue Losartan [Cozaar] 50 mg PO HS Atenolol [Tenormin] 50 mg PO BID Aspirin 81 mg PO DAILY Levothyroxine Sodium [Synthroid] 75 mcg PO DAILY Atorvastatin [Lipitor] 40 mg PO HS Apixaban [Eliquis] 2.5 mg PO BID amLODIPine [Norvasc] 5 mg PO HS Furosemide [Lasix] 20 mg PO BID@0800,1400 Potassium Chloride [K-Tab ER] 20 meq PO MOWEFR Discharge Medication List Aspirin 81 mg PO DAILY 08/01/14 [History] Atenolol [Tenormin] 50 mg PO BID 08/01/14 [History] Levothyroxine Sodium [Synthroid] 75 mcg PO DAILY 08/01/14 [History] Losartan [Cozaar] 50 mg PO HS 08/01/14 [History] Atorvastatin [Lipitor] 40 mg PO HS 12/20/16 [History] Apixaban [Eliquis] 2.5 mg PO BID 06/14/17 [History] Furosemide [Lasix] 20 mg PO BID@0800,1400 10/02/17 [History] Potassium Chloride [K-Tab ER] 20 meq PO MOWEFR 10/02/17 [History] amLODIPine [Norvasc] 5 mg PO HS 10/02/17 [History] Follow up Appointment(s)/Referral(s): Dimitris Win MD [STAFF PHYSICIAN] - 1 Week Laurel Gaytan MD [STAFF PHYSICIAN] - 1 Week Naveen Mcduffie DO [Primary Care Provider] - 1 Week Discharge Disposition: HOME SELF-CARE
[2017-10-05] MEDS ORDERED: PANTOPRAZOLE 40 MG TABLET PO SCH (07:30)
== END 2017-10-04 15:20 | disposition home or self-care (01) ==
LOC: EC 11:04 → 3OBS 12:57
PROVIDERS: ADMIT Family Medicine; ATTEND Family Medicine
DX: R07.89 Other chest pain (principal); R10.13 Epigastric pain; I25.10 Atherosclerotic heart disease of native coronary artery without angina pectoris; I10 Essential (primary) hypertension; H40.9 Unspecified glaucoma; E78.5 Hyperlipidemia, unspecified; R74.8 Abnormal levels of other serum enzymes; I08.1 Rheumatic disorders of both mitral and tricuspid valves; K83.8 Other specified diseases of biliary tract; I48.1 Persistent atrial fibrillation; I48.2 Chronic atrial fibrillation; M19.90 Unspecified osteoarthritis, unspecified site; E03.9 Hypothyroidism, unspecified; Z79.82 Long term (current) use of aspirin; Z85.828 Personal history of other malignant neoplasm of skin; Z79.899 Other long term (current) drug therapy; Z79.02 Long term (current) use of antithrombotics/antiplatelets; Z88.8 Allergy status to other drugs, medicaments and biological substances; Z86.718 Personal history of other venous thrombosis and embolism; Z95.1 Presence of aortocoronary bypass graft; Z95.5 Presence of coronary angioplasty implant and graft; Z90.710 Acquired absence of both cervix and uterus
CPT/HCPCS: 96374; 99291; 36415; 93005; 80061; 80053 ×2; 82150; 82550 ×2; 82553 ×2; 83690 ×2; 83735; 84075; 84450; 84460; 84484 ×2; 85025; 85610; 85730; 71046; 76705; G0378 ×3; C9113

== ENCOUNTER → 2018-03-02 | Outpatient (CLI) | payer MEDICARE, BC ==
[2018-03-02 08:52] VITALS: BP 115/72; PULSE 94; RESP 18; TEMP 97.9; BMI 23.8
--- NOTE | 2018-03-02 09:22 | P.HPOB ---
History of Present Illness H&P Date: 03/02/18 Chief Complaint: The patient is here for her routine gynecologic exam and mammogram. This is an 88-year-old with an LMP of 1974. The patient status post [facility] for benign reasons. She is without gynecologic complaints. Review of Systems She has lost 3 pounds over the last year. She denies respiratory, cardiac and G.I. problems. She denies maltreatment or problems with falling. : she denies any significant problems with urinary leakage. Past Medical History Past Medical History: Atrial Fibrillation, Coronary Artery Disease (CAD), Deep Vein Thrombosis (DVT), Eye Disorder, Hyperlipidemia, Hypertension, Thyroid Disorder (Hypothyroid) Additional Past Medical History / Comment(s): GLAUCOMA, HX OF SKIN CA, PAST AFIB , HIATAL HERNIA(HAD SX), ARTHRITIS. Past CATERING ASSISTANT history: she has no history of STDs. History of Any Multi-Drug Resistant Organisms: None Reported Past Surgical History: Appendectomy, Coronary Bypass/CABG, Heart Catheterization With Stent, Hysterectomy (ZULEMA in 1974), Joint Replacement, Orthopedic Surgery Additional Past Surgical History / Comment(s): RT KNEE ARTHROSCOPY, MICHAEL KNEE'S REPLACED, thyroid surgery x 2, MAGNUS, EPS, CARDIOVERSION, CABG TRIPLE VESSEL, STENT X1, SX FOR HIATAL HERNIA, COLONOSCOPY. Past Anesthesia/Blood Transfusion Reactions: No Reported Reaction Date of Last Stent Placement:: 2012 Past Psychological History: No Psychological Hx Reported Additional Psychological History / Comment(s): PT LIVES WITH HER . PT IS INDEPENDANT STILL DRIVES. NO HOME CARE SERVICES RECIEVED. NO MEDICAL EQUIPMENT. LIVES IN 2 STORY HOME BUT STAYS ON FIRST FLOOR. HAS 1 PORCH STEP. Smoking Status: Never smoker Past Alcohol Use History: None Reported Past Drug Use History: None Reported Additional History: She has been since 1950 and is not sexually active. - Past Family History Mother Additional Family Medical History / Comment(s): " OF OLD AGE IN HER 90'S" Father Additional Family Medical History / Comment(s): " OF OLD AGE IN HIS 90'S" Sister(s) Additional Family Medical History / Comment(s): HEART CONDITIONS- PTS UNSURE OF WHAT Brother(s) Family Medical History: Cancer Additional Family Medical History / Comment(s): HEART CONDITIONS- PTS UNSURE OF WHAT Medications and Allergies Home Medications Medication Instructions Recorded Confirmed Type Aspirin 81 mg PO DAILY 08/01/14 10/02/17 History Atenolol [Tenormin] 50 mg PO BID 08/01/14 10/02/17 History Levothyroxine Sodium [Synthroid] 75 mcg PO DAILY 08/01/14 10/02/17 History Losartan [Cozaar] 50 mg PO HS 08/01/14 10/02/17 History Atorvastatin [Lipitor] 40 mg PO HS 12/20/16 10/02/17 History Apixaban [Eliquis] 2.5 mg PO BID 06/14/17 10/02/17 History Furosemide [Lasix] 20 mg PO BID@0800,1400 10/02/17 10/02/17 History Potassium Chloride [K-Tab ER] 20 meq PO MOWEFR 10/02/17 10/02/17 History amLODIPine [Norvasc] 5 mg PO HS 10/02/17 10/02/17 History Allergies Allergy/AdvReac Type Severity Reaction Status Date / Time hydroxyzine HCl Allergy Rash/Hives Verified 03/02/18 08:58 [From Vistaril] hydroxyzine pamoate Allergy Rash/Hives Verified 03/02/18 08:58 [From Vistaril] Exam - Vital Signs Vital signs: Vital Signs Temp Pulse Resp BP 03/02/18 08:48 97.9 F 94 18 115/72 Intake and Output 03/01/18 03/02/18 03/02/18 22:59 06:59 14:59 Other: Weight 57.153 kg Height 5'1", BMI 23.8. This is a well-developed well-nourished elderly white female who is alert and oriented times 3 in no acute distress. HEENT: Within normal limits. NECK: Supple without mass or thyromegaly. CHEST AND LUNGS: Clear to auscultation. HEART: slightly irregularly irregular rhythm consistent with her history of atrial fibrillation. BREASTS: Are without mass or discharge. AXILLARY EXAM: Negative for adenopathy. BACK: Negative for CVA tenderness. ABDOMEN: Soft, nontender, without palpable masses. PELVIC EXAM: External genitalia appears normal moderate atrophy. Vagina appears normal with moderate atrophy. There is no evidence of prolapse. Bimanual examination is negative for mass or tenderness. RECTAL EXAM: Rectovaginal exam is negative for mass or tenderness and is negative for occult blood. EXTREMITIES: Nontender. IMPRESSION: 1. 88-year-old menopausal female status post ZULEMA for benign reasons with normal gynecologic exam. 2. Multiple medical problems. PLAN: 1. Pap smears have been discontinued. 2. Self breast awareness was discussed. 3. Screening mammogram will be done today. 4. Osteoporosis prevention was discussed. Bone density testing will be done today. 5. She states she does not get flu shots in the fall. 6. She will return in one year.
--- NOTE | 2018-03-02 14:59 | BD ---
EXAMINATION TYPE: Axial Bone Density DATE OF EXAM: 03/02/2018 COMPARISON: NONE CLINICAL HISTORY: post menopausal Height: 4'11 Weight: 129 FRAX RISK QUESTIONS: Secondary Osteoporosis: RISK FACTORS HISTORY OF: Postmenopausal woman: y MEDICATIONS: Thyroid Medications: Which medication: Synthroid How Lon years Additional Medications: blood pressure, cholesterol Additional History: EXAM MEASUREMENTS: Bone mineral densitometry was performed using the [employer] System. Bone mineral density as measured about the Lumbar spine is: ----- L1-L4(G/cm2): 0.840 T Score Values are as follows: ----- L2: -3.4 ----- L3: -3.0 ----- L4: -2.1 ----- L1-L4: -2.8 Bone mineral density about the R hip (g/cm2): 0.623 Bone mineral density about the L hip (g/cm2): 0.786 T Score values are as follows: -----R Neck: -3.0 -----L Neck: -1.8 -----R Total: -3.4 -----L Total: -3.1 IMPRESSION: Osteoporosis (T Score less than -2.5). There is increased fracture risk and therapy is usually indicated based on age. Re-Screen 1-2 years. NOTE: T-SCORE=SD OF THE YOUNG ADULT MEAN.
--- NOTE | 2018-03-04 08:14 | MM ---
Reason for exam: screening (asymptomatic). Last mammogram was performed 1 year and 1 month ago. History: Patient is postmenopausal and history of other cancer. Physical Findings: A clinical breast exam by your physician is recommended on an annual basis and results should be correlated with mammographic findings. MG Screening Mammo w CAD Bilateral CC and MLO view(s) were taken. Prior study comparison: February 03, 2017, bilateral MG screening mammo w CAD. January 29, 2016, bilateral MG 3d screening mammo w/cad. The breast tissue is heterogeneously dense. This may lower the sensitivity of mammography. Benign appearing bilateral calcifications. No suspicious abnormality. ASSESSMENT: Benign, BI-RAD 2 RECOMMENDATION: Routine screening mammogram of both breasts in 1 year.
== END | disposition home or self-care (01) ==
LOC: WWCWWP 08:35
PROVIDERS: ATTEND Obstetrics & Gynecology
DX: Z12.31 Encounter for screening mammogram for malignant neoplasm of breast (principal); M81.0 Age-related osteoporosis without current pathological fracture; Z78.0 Asymptomatic menopausal state
CPT/HCPCS: 77067; 77080

== ENCOUNTER → 2018-04-25 | Outpatient (CLI) | payer MEDICARE, BC ==
[2018-04-25 09:20] LABS: Albumin 3.6 g/dL (3.5-5.0); Calcium 8.7 mg/dL (8.4-10.2); Potassium 4.5 mmol/L (3.5-5.1); Total Bilirubin 0.7 mg/dL (0.2-1.3); Total Protein 6.2 g/dL (6.3-8.2)
== END | disposition home or self-care (01) ==
LOC: LABWHC1 08:40
PROVIDERS: ATTEND Internal Medicine Interventional Cardiology
DX: E78.2 Mixed hyperlipidemia (principal)
CPT/HCPCS: 36415; 80053; 80061

== ENCOUNTER 2018-12-24 19:46 | Emergency (ER) | payer MEDICARE, BC ==
--- NOTE | 2018-12-24 20:29 | ED ---
General Adult HPI - General Chief complaint: Chest Pain Stated complaint: Chest Pain Time Seen by Provider: 12/24/18 19:57 Source: patient, family, RN notes reviewed Mode of arrival: wheelchair - History of Present Illness Initial comments: Chief complaint and history of present illness this is an 88-year-old female here with her . Patient reports that for several minutes she had a funny sensation in her right side of her chest. She denies felt like chest pain. She thinks she may have been a little sweaty at the time but denies being short of breath. No nausea. Patient reports that pushing on the area did not make it better or worse breathing cannot make it better or worse. - Related Data Home Medications Medication Instructions Recorded Confirmed Aspirin 81 mg PO DAILY 08/01/14 12/24/18 Atenolol [Tenormin] 50 mg PO BID 08/01/14 12/24/18 Levothyroxine Sodium [Synthroid] 75 mcg PO DAILY 08/01/14 12/24/18 Losartan [Cozaar] 50 mg PO HS 08/01/14 12/24/18 Atorvastatin [Lipitor] 40 mg PO HS 12/20/16 12/24/18 Apixaban [Eliquis] 2.5 mg PO BID 06/14/17 12/24/18 Furosemide [Lasix] 20 mg PO DAILY 10/02/17 12/24/18 Potassium Chloride [K-Tab ER] 20 meq PO QAM 10/02/17 12/24/18 amLODIPine [Norvasc] 5 mg PO HS 10/02/17 12/24/18 Allergies Allergy/AdvReac Type Severity Reaction Status Date / Time hydroxyzine HCl Allergy Rash/Hives Verified 12/24/18 20:37 [From Vistaril] hydroxyzine pamoate Allergy Rash/Hives Verified 12/24/18 20:37 [From Vistaril] Review of Systems ROS Statement: Those systems with pertinent positive or pertinent negative responses have been documented in the HPI. Review of systems patient denies any headache or visual acuity at this time no chest pain shortness breath GI/ problems no complaint of a neuro deficits. Patient reports that she noticed she's had mild leg swelling for the past 2 days. She does take a water pill. Patient denies any neuro deficits. All systems are reviewed. The patient's past medical problems significant for A. fib on [place]. History of heart disease, DVT, glaucoma, hyperlipidemia and hypertension. Patient is also hypothyroid. She states she's not been on her thyroid medication for several days as and a been refilled yet. She is afraid it might be her thyroid making her feel funny. The patient has had skin cancer in the past. Patient's surgeries include coronary bypass, appendectomy, hysterectomy, bilateral knee replacements. The patient's family history no cancers. Patient denies smoking or drinking. She has ALLERGIES to hydroxyzine. ROS Other: All systems not noted in ROS Statement are negative. Past Medical History Past Medical History: Atrial Fibrillation, Coronary Artery Disease (CAD), Deep Vein Thrombosis (DVT), Eye Disorder, Hyperlipidemia, Hypertension, Thyroid Disorder Additional Past Medical History / Comment(s): GLAUCOMA, HX OF SKIN CA, PAST AFIB, HIATAL HERNIA(HAD SX), ARTHRITIS. 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 History of Any Multi-Drug Resistant Organisms: None Reported Past Surgical History: Appendectomy, Coronary Bypass/CABG, Heart Catheterization With Stent, Hysterectomy, Joint Replacement, Orthopedic Surgery Additional Past Surgical History / Comment(s): RT KNEE ARTHROSCOPY, MICHAEL KNEE'S REPLACED, thyroid surgery x 2, MAGNUS, EPS, CARDIOVERSION, CABG TRIPLE VESSEL, STENT X1, SX FOR HIATAL HERNIA, COLONOSCOPY. Past Anesthesia/Blood Transfusion Reactions: No Reported Reaction Date of Last Stent Placement:: 2012 Past Psychological History: No Psychological Hx Reported Smoking Status: Never smoker Past Alcohol Use History: None Reported Past Drug Use History: None Reported - Past Family History Mother Additional Family Medical History / Comment(s): " OF OLD AGE IN HER 90'S" Father Additional Family Medical History / Comment(s): " OF OLD AGE IN HIS 90'S" Sister(s) Additional Family Medical History / Comment(s): HEART CONDITIONS- PTS UNSURE OF WHAT Brother(s) Family Medical History: Cancer Additional Family Medical History / Comment(s): HEART CONDITIONS- PTS UNSURE OF WHAT General Exam - General Exam Comments Initial Comments: General: The patient is awake and alert, in no distress, and does not appear acutely ill. Here because she had several minutes of discomfort or funny sensation to the right side of her chest. Her vital signs signs show temperature 99.0 pulse 106 respiratory rate 20 pulse ox 97% room air blood pressure 139/84 Eye: Pupils are equal, round and reactive to light, extra-ocular movements are intact; there is normal conjunctiva bilaterally. No signs of icterus. Ears, nose, mouth and throat: There are moist mucous membranes and no oral lesions. Patient is edentulous Neck: The neck is supple, there is no tenderness Cardiovascular: ireggular rate and rhythm , no rash Respiratory: Lungs are clear to auscultation, respirations are non-labored, breath sounds are equal. No wheezes, stridor, rales, or rhonchi. Gastrointestinal: Soft, non-distended, non-tender abdomen without masses or organomegaly noted. There is no rebound or guarding present. Back: There is no tenderness to palpation in the midline. There is no obvious deformity. No rashes noted. Musculoskeletal: Normal ROM, no tenderness, mild pedal edema. Neurological: no neuro deficits, alert Skin: Skin is warm and dry and no rashes or lesions are noted. Psychiatric: Cooperative, Course Vital Signs 12/24/18 12/24/18 19:51 21:30 Temperature 99 F Pulse Rate 106 H 90 Respiratory 20 18 Rate Blood Pressure 139/84 136/81 O2 Sat by Pulse 97 99 Oximetry EKG Findings - EKG Comments: EKG Findings:: ekg was reviewed at 20;20 a fib with rvr, rate 112,qrs 80, qt 328, qtc 447 Dr. Herbert Medical Decision Making - Medical Decision Making Chief complaint and history of present illness this is an 88-year-old female here with her . The patient reports she had a minute or 2 a funny sensation to the right side of her chest. She states she's not been on her thyroid medication for only 2 or 3 days into might be caused by that. Examination normal limits. EKG shows chronic changes such as A. fib with RVR and rate 106. Vital signs remained stable. The patient's labs show white count 10 hemoglobin 13 hematocrit of 40. The patient's chest x-ray is done and reviewed by radiologist his impression is cardiomegaly, no acute cardiopulmonary disease. No CHF, no acute changes when compared to previous chest x-ray. As read by Dr. Erickson. The patient's concern that she's been off her Synthroid for several days. She'll be given 1 Synthroid 75 mcg advised to follow-up with her doctor on Wednesday. - Lab Data Result diagrams: 12/24/18 20:40 12/24/18 20:40 Lab Results 12/24/18 12/24/18 12/24/18 Range/Units 20:40 20:40 20:40 WBC 10.2 (3.8-10.6) k/uL RBC 4.98 (3.80-5.40) m/uL Hgb 13.7 (11.4-16.0) gm/dL Hct 44.1 (34.0-46.0) % MCV 88.4 (80.0-100.0) fL MCH 27.6 (25.0-35.0) pg MCHC 31.2 (31.0-37.0) g/dL RDW 15.1 (11.5-15.5) % Plt Count 231 (150-450) k/uL Neutrophils % 81 % Lymphocytes % 11 % Monocytes % 6 % Eosinophils % 1 % Basophils % 0 % Neutrophils # 8.2 H (1.3-7.7) k/uL Lymphocytes # 1.1 (1.0-4.8) k/uL Monocytes # 0.6 (0-1.0) k/uL Eosinophils # 0.1 (0-0.7) k/uL Basophils # 0.0 (0-0.2) k/uL PT 9.9 (9.0-12.0) sec INR 0.9 (<1.2) APTT 18.2 L (22.0-30.0) sec D-Dimer 0.41 (<0.60) mg/L FEU Sodium 140 (137-145) mmol/L Potassium 3.8 (3.5-5.1) mmol/L Chloride 105 (98-107) mmol/L Carbon Dioxide 27 (22-30) mmol/L Anion Gap 8 mmol/L BUN 19 H (7-17) mg/dL Creatinine 0.75 (0.52-1.04) mg/dL Est GFR (CKD-EPI)AfAm 84 (>60 ml/min/1.73 sqM) Est GFR (CKD-EPI)NonAf 73 (>60 ml/min/1.73 sqM) Glucose 142 H (74-99) mg/dL Calcium 8.4 (8.4-10.2) mg/dL Total Bilirubin 0.8 (0.2-1.3) mg/dL AST 55 H (14-36) U/L ALT 77 H (9-52) U/L Alkaline Phosphatase 117 (38-126) U/L Troponin I (0.000-0.034) ng/mL NT-Pro-B Natriuret Pep pg/mL Total Protein 6.3 (6.3-8.2) g/dL Albumin 3.4 L (3.5-5.0) g/dL 12/24/18 12/24/18 Range/Units 20:40 20:40 WBC (3.8-10.6) k/uL RBC (3.80-5.40) m/uL Hgb (11.4-16.0) gm/dL Hct (34.0-46.0) % MCV (80.0-100.0) fL MCH (25.0-35.0) pg MCHC (31.0-37.0) g/dL RDW (11.5-15.5) % Plt Count (150-450) k/uL Neutrophils % % Lymphocytes % % Monocytes % % Eosinophils % % Basophils % % Neutrophils # (1.3-7.7) k/uL Lymphocytes # (1.0-4.8) k/uL Monocytes # (0-1.0) k/uL Eosinophils # (0-0.7) k/uL Basophils # (0-0.2) k/uL PT (9.0-12.0) sec INR (<1.2) APTT (22.0-30.0) sec D-Dimer (<0.60) mg/L FEU Sodium (137-145) mmol/L Potassium (3.5-5.1) mmol/L Chloride (98-107) mmol/L Carbon Dioxide (22-30) mmol/L Anion Gap mmol/L BUN (7-17) mg/dL Creatinine (0.52-1.04) mg/dL Est GFR (CKD-EPI)AfAm (>60 ml/min/1.73 sqM) Est GFR (CKD-EPI)NonAf (>60 ml/min/1.73 sqM) Glucose (74-99) mg/dL Calcium (8.4-10.2) mg/dL Total Bilirubin (0.2-1.3) mg/dL AST (14-36) U/L ALT (9-52) U/L Alkaline Phosphatase (38-126) U/L Troponin I <0.012 (0.000-0.034) ng/mL NT-Pro-B Natriuret Pep 1040 pg/mL Total Protein (6.3-8.2) g/dL Albumin (3.5-5.0) g/dL Disposition Clinical Impression: History of atrial fibrillation Disposition: HOME SELF-CARE Condition: Fair Instructions (If sedation given, give patient instructions): A-fib (Atrial Fibrillation) (ED) Is patient prescribed a controlled substance at d/c from ED?: No Referrals: Naveen Mcduffie DO [Primary Care Provider] - 1-2 days
[2018-12-24 20:48] LABS: Basophils % (A) 0 %; Eosinophils # (A) 0.1 k/uL (0-0.7); Eosinophils % (A) 1 %; HCT 44.1 % (34.0-46.0); HGB 13.7 gm/dL (11.4-16.0); Lymphocytes # (A) 1.1 k/uL (1.0-4.8); Lymphocytes % (A) 11 %; MCH 27.6 pg (25.0-35.0); MCHC 31.2 g/dL (31.0-37.0); MCV 88.4 fL (80.0-100.0); Mean Platelet Volume 6.9; Monocytes # (A) 0.6 k/uL (0-1.0); Monocytes % (A) 6 %; Neutrophils # (A) 8.2 k/uL (1.3-7.7); Neutrophils % (A) 81 %; Platelet Count 231 k/uL (150-450); RBC 4.98 m/uL (3.80-5.40); RDW 15.1 % (11.5-15.5); WBC 10.2 k/uL (3.8-10.6)
--- NOTE | 2018-12-24 20:58 | XR ---
EXAMINATION TYPE: XR chest 2V DATE OF EXAM: 12/24/2018 COMPARISON: 02/03/2018 HISTORY: Chest pain TECHNIQUE: Frontal and lateral views of the chest are obtained. FINDINGS: Heart is enlarged. There are sternal wires. Lungs are clear of infiltrate. Bony thorax is intact. IMPRESSION: Cardiomegaly. No active cardiopulmonary disease. No heart failure. No significant change .
[2018-12-24 20:59] LABS: Albumin 3.4 g/dL (3.5-5.0); Calcium 8.4 mg/dL (8.4-10.2); Total Bilirubin 0.8 mg/dL (0.2-1.3); Total Protein 6.3 g/dL (6.3-8.2)
[2018-12-24 21:08] LABS: Potassium 3.8 mmol/L (3.5-5.1)
[2018-12-24 21:12] LABS: D-Dimer 0.41 mg/L FEU (<0.60); INR 0.9 (<1.2); Prothrombin Time 9.9 sec (9.0-12.0)
[2018-12-24 21:27] LABS: Partial Thromboplastin Time 18.2 sec (22.0-30.0)
[2018-12-24 21:32] VITALS: RESP 18
[2018-12-24] MEDS ORDERED: LEVOTHYROXINE 75 MCG TAB PO STA (21:50)
[2018-12-24 22:11] VITALS: BP 147/83; PULSE 89; TEMP 98.1
[2018-12-25] MEDS ORDERED: LEVOTHYROXINE 100 MCG TAB PO SCH (06:30)
[2018-12-25] MEDS ORDERED: LEVOTHYROXINE 75 MCG TAB PO SCH (06:30)
== END 2018-12-24 22:09 | disposition home or self-care (01) ==
LOC: EC 19:46
DX: I48.91 Unspecified atrial fibrillation (principal); I25.2 Old myocardial infarction; I25.10 Atherosclerotic heart disease of native coronary artery without angina pectoris; E78.5 Hyperlipidemia, unspecified; I10 Essential (primary) hypertension; E07.9 Disorder of thyroid, unspecified; Z79.82 Long term (current) use of aspirin; Z79.01 Long term (current) use of anticoagulants; Z79.890 Hormone replacement therapy; Z79.899 Other long term (current) drug therapy; Z88.8 Allergy status to other drugs, medicaments and biological substances; Z95.1 Presence of aortocoronary bypass graft; Z96.653 Presence of artificial knee joint, bilateral; Z85.828 Personal history of other malignant neoplasm of skin; Z86.718 Personal history of other venous thrombosis and embolism
CPT/HCPCS: 36415; 71046; 80053; 83880; 84484; 85025; 85379; 85610; 85730; 93005; 99285

== ENCOUNTER → 2019-01-16 | Outpatient (CLI) | payer MEDICARE, BC ==
[2019-01-16 17:09] LABS: Albumin 3.6 g/dL (3.80-4.90); Albumin/Globulin Ratio 1.64 (1.60-3.17); Anion Gap 6.8 mmol/L (4.00-12.00); Calcium 8.6 mg/dL (8.7-10.3); Carbon Dioxide 30.2 mmol/L (21.6-31.8); Globulin 2.2 g/dL (1.6-3.3); LDL Cholesterol,Calculated 88.2 mg/dL (0.0-131.0); Potassium 4.3 mmol/L (3.5-5.5); Total Bilirubin 0.7 mg/dL (0.2-1.2); Total Protein 5.8 g/dL (6.2-8.2); VLDL Calculation 20.8 mg/dL (5.00-40.00)
== END | disposition home or self-care (01) ==
LOC: LABWHC1 07:45
PROVIDERS: ATTEND Internal Medicine Interventional Cardiology
DX: E78.5 Hyperlipidemia, unspecified (principal); R06.00 Dyspnea, unspecified
CPT/HCPCS: 36415; 80053; 80061; 83880

== ENCOUNTER → 2019-03-20 | Outpatient (CLI) | payer MEDICARE, BC ==
[2019-03-20 15:48] LABS: African American GFR (CKD) 90.3 (60.0-200.0); Albumin 3.8 g/dL (3.80-4.90); Anion Gap 5.7 mmol/L (4.00-12.00); Calcium 8.7 mg/dL (8.7-10.3); Carbon Dioxide 29.3 mmol/L (21.6-31.8); Globulin 1.9 g/dL (1.6-3.3); LDL Cholesterol,Calculated 83.8 mg/dL (0.0-131.0); Potassium 4.2 mmol/L (3.5-5.5); Total Protein 5.7 g/dL (6.2-8.2); VLDL Calculation 21.2 mg/dL (5.00-40.00)
== END | disposition home or self-care (01) ==
LOC: LABWHC1 08:32
PROVIDERS: ATTEND Nurse Practitioner Adult Health
DX: I10 Essential (primary) hypertension (principal)
CPT/HCPCS: 36415; 80053; 80061

== ENCOUNTER → 2019-04-12 | Outpatient (CLI) | payer MEDICARE, BC ==
[2019-04-12 10:53] VITALS: BP 165/90; PULSE 129; RESP 18; TEMP 97.9; BMI 25.0
--- NOTE | 2019-04-12 11:34 | P.HPOB ---
History of Present Illness H&P Date: 04/12/19 Chief Complaint: The patient is here for her routine gynecologic exam and ma mmogram. This is a 89 year old G 5 P 5 with an LMP of 1974. The patient is without gynecologic complaints. She is status post ZULEMA for benign reasons. Review of Systems She has lost about 2 pounds over the last year. She denies respiratory, cardiac and G.I. problems. She denies maltreatment or problems with falling. : she denies any significant problems with urinary leakage. Past Medical History Past Medical History: Atrial Fibrillation, Coronary Artery Disease (CAD), Deep Vein Thrombosis (DVT), Eye Disorder, Hyperlipidemia, Hypertension, Thyroid Disorder Additional Past Medical History / Comment(s): Hypothyroidism. GLAUCOMA, HX OF SKIN CA, ARTHRITIS. 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 History of Any Multi-Drug Resistant Organisms: None Reported Past Surgical History: Appendectomy, Coronary Bypass/CABG, Heart Catheterization With Stent, Hernia Repair, Hysterectomy, Joint Replacement, Orthopedic Surgery Additional Past Surgical History / Comment(s): RT KNEE ARTHROSCOPY, MICHAEL KNEE'S REPLACED, thyroid surgery x 2, MAGNUS, EPS, CARDIOVERSION, CABG TRIPLE VESSEL, STENT X1, SX FOR HIATAL HERNIA, COLONOSCOPY 2011. Past Anesthesia/Blood Transfusion Reactions: No Reported Reaction Date of Last Stent Placement:: 2012 Past Psychological History: No Psychological Hx Reported Additional Psychological History / Comment(s): PT LIVES WITH HER . PT IS INDEPENDANT STILL DRIVES. NO HOME CARE SERVICES RECIEVED. NO MEDICAL EQUIPMENT. LIVES IN 2 STORY HOME BUT STAYS ON FIRST FLOOR. HAS 1 PORCH STEP. Smoking Status: Never smoker Past Alcohol Use History: None Reported Past Drug Use History: None Reported Additional History: The patient has been since 1950 and is not sexually active. - Past Family History Mother Additional Family Medical History / Comment(s): " OF OLD AGE IN HER 90'S" Father Additional Family Medical History / Comment(s): " OF OLD AGE IN HIS 90'S" Sister(s) Additional Family Medical History / Comment(s): HEART CONDITIONS- PTS UNSURE OF WHAT Brother(s) Family Medical History: Cancer Additional Family Medical History / Comment(s): HEART CONDITIONS- PTS UNSURE OF WHAT Medications and Allergies Home Medications Medication Instructions Recorded Confirmed Type Aspirin 81 mg PO DAILY 08/01/14 04/12/19 History Atenolol [Tenormin] 50 mg PO BID 08/01/14 04/12/19 History Levothyroxine Sodium [Synthroid] 75 mcg PO DAILY 08/01/14 04/12/19 History Losartan [Cozaar] 50 mg PO HS 08/01/14 04/12/19 History Atorvastatin [Lipitor] 40 mg PO HS 12/20/16 04/12/19 History Apixaban [Eliquis] 2.5 mg PO BID 06/14/17 04/12/19 History Furosemide [Lasix] 20 mg PO DAILY 10/02/17 04/12/19 History Potassium Chloride [K-Tab ER] 20 meq PO QAM 10/02/17 04/12/19 History amLODIPine [Norvasc] 5 mg PO HS 10/02/17 04/12/19 History Allergies Allergy/AdvReac Type Severity Reaction Status Date / Time hydroxyzine HCl Allergy Rash/Hives Verified 04/12/19 10:54 [From Vistaril] hydroxyzine pamoate Allergy Rash/Hives Verified 04/12/19 10:54 [From Vistaril] Exam Vital Signs Temp Pulse Resp BP Pulse Ox 04/12/19 10:47 97.9 F 129 H 18 165/90 96 Intake and Output 04/11/19 04/12/19 04/12/19 22:59 06:59 14:59 Other: Weight 58.06 kg Height 5'0", weight 128 pounds, BMI 25.0. This is a well-developed well-nourished elderly white female who is alert and oriented times 3 in no acute distress. HEENT: Within normal limits. NECK: Supple without mass or thyromegaly. CHEST AND LUNGS: Clear to auscultation. HEART: Regular rate and rhythm. BREASTS: Are without mass or discharge. AXILLARY EXAM: Negative for adenopathy. BACK: Negative for CVA tenderness. ABDOMEN: Soft, nontender, without palpable masses. PELVIC EXAM: External genitalia appears normal with moderate atrophy. Vagina appears normal with moderate atrophy. There is no evidence of prolapse. Bimanual examination is negative for mass or tenderness. RECTAL EXAM: Rectovaginal exam is negative for mass or tenderness and is negative for occult blood. EXTREMITIES: Nontender. IMPRESSION: 1. 89-year-old menopausal female status post ZULEMA for benign reasons with normal gynecologic exam. 2. History of osteoporosis. The patient is declining medication for this. 3. Multiple medical problems. PLAN: 1. Pap smears have been discontinued. 2. Self breast awareness was discussed with the patient. 3. Screening mammogram will be done today. 4. Osteoporosis management was discussed. I have recommended medication to try to decrease the risk of fracturing of bone. The patient again is declining any prescription medication for this. I have stressed the importance of adequate calcium, vitamin D and regular exercise. Recommended amounts of calcium and vitamin D were also discussed. She was instructed to call if she changes her mind about medications for osteoporosis. 5. She does get flu shots in the fall. 6. The patient was advised to return in 1-2 years for her well woman examination.
--- NOTE | 2019-04-13 14:01 | MM ---
Reason for exam: screening (asymptomatic). Last mammogram was performed 1 year and 1 month ago. History: Patient is postmenopausal and history of other cancer. Physical Findings: A clinical breast exam by your physician is recommended on an annual basis and results should be correlated with mammographic findings. MG 3D Screening Mammo W/Cad Bilateral CC and MLO view(s) were taken. Prior study comparison: March 02, 2018, bilateral MG screening mammo w CAD. February 03, 2017, bilateral MG screening mammo w CAD. The breast tissue is heterogeneously dense. This may lower the sensitivity of mammography. Benign appearing bilateral calcifications. No suspicious abnormality. No significant changes when compared with prior studies. ASSESSMENT: Benign, BI-RAD 2 RECOMMENDATION: Routine screening mammogram of both breasts in 1 year.
== END | disposition home or self-care (01) ==
LOC: WWCWWP 10:34
PROVIDERS: ATTEND Obstetrics & Gynecology
DX: Z12.31 Encounter for screening mammogram for malignant neoplasm of breast (principal)
CPT/HCPCS: 77063; 77067

== ENCOUNTER 2019-06-02 06:39 | Observation (INO) | payer MEDICARE, BC ==
--- NOTE | 2019-06-02 07:05 | ED ---
Chest Pain HPI - General Chief Complaint: Chest Pain Stated Complaint: Chest Pain Time Seen by Provider: 06/02/19 06:47 Source: patient, RN notes reviewed Mode of arrival: wheelchair Limitations: no limitations - History of Present Illness Initial Comments: 89-year-old female presents emergency Department chief complaint of chest discomfort. Patient states that the pain woke her up in [place]. Patient states she does have a history of tubal bypass, history A. fib hypertension hyperlipidemia. Patient states this pain is different than her usual. Patient denies any back pain, headache or dizziness denies any leg pain leg swelling abdominal discomfort. Patient states she does take Eliquis and aspirin daily. Patient denies any fever, chills, cough or chest congestion. - Related Data Home Medications Medication Instructions Recorded Confirmed Aspirin 81 mg PO DAILY 08/01/14 06/02/19 Atenolol [Tenormin] 50 mg PO BID 08/01/14 06/02/19 Levothyroxine Sodium [Synthroid] 75 mcg PO DAILY 08/01/14 06/02/19 Losartan [Cozaar] 50 mg PO HS 08/01/14 06/02/19 Atorvastatin [Lipitor] 40 mg PO HS 12/20/16 06/02/19 Apixaban [Eliquis] 2.5 mg PO BID 06/14/17 06/02/19 amLODIPine [Norvasc] 5 mg PO HS 10/02/17 06/02/19 Irbesartan [Avapro] 150 mg PO DAILY 06/02/19 06/02/19 Allergies Allergy/AdvReac Type Severity Reaction Status Date / Time hydroxyzine HCl Allergy Rash/Hives Verified 06/02/19 07:31 [From Vistaril] hydroxyzine pamoate Allergy Rash/Hives Verified 06/02/19 07:31 [From Vistaril] Review of Systems ROS Statement: Those systems with pertinent positive or pertinent negative responses have been documented in the HPI. ROS Other: All systems not noted in ROS Statement are negative. EKG Findings - EKG Comments: EKG Findings:: EKG performed at 6:54 A. fib with a rate of 97 OH 80 QT/QTC 362/459 Past Medical History Past Medical History: Atrial Fibrillation, Coronary Artery Disease (CAD), Deep Vein Thrombosis (DVT), Eye Disorder, Hyperlipidemia, Hypertension, Thyroid Disorder Additional Past Medical History / Comment(s): Hypothyroidism. GLAUCOMA, HX OF SKIN CA, ARTHRITIS. 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 History of Any Multi-Drug Resistant Organisms: None Reported Past Surgical History: Appendectomy, Coronary Bypass/CABG, Heart Catheterization With Stent, Hernia Repair, Hysterectomy, Joint Replacement, Orthopedic Surgery Additional Past Surgical History / Comment(s): RT KNEE ARTHROSCOPY, MICHAEL KNEE'S REPLACED, thyroid surgery x 2, MAGNUS, EPS, CARDIOVERSION, CABG TRIPLE VESSEL, STENT X1, SX FOR HIATAL HERNIA, COLONOSCOPY 2011. Past Anesthesia/Blood Transfusion Reactions: No Reported Reaction Date of Last Stent Placement:: 2012 Past Psychological History: No Psychological Hx Reported Smoking Status: Never smoker Past Alcohol Use History: None Reported Past Drug Use History: None Reported - Past Family History Mother Additional Family Medical History / Comment(s): " OF OLD AGE IN HER 90'S" Father Additional Family Medical History / Comment(s): " OF OLD AGE IN HIS 90'S" Sister(s) Additional Family Medical History / Comment(s): HEART CONDITIONS- PTS UNSURE OF WHAT Brother(s) Family Medical History: Cancer Additional Family Medical History / Comment(s): HEART CONDITIONS- PTS UNSURE OF WHAT General Exam Limitations: no limitations General appearance: alert, in no apparent distress Head exam: Present: atraumatic, normocephalic, normal inspection Neck exam: Present: normal inspection, full ROM. Absent: tenderness, meningismus, lymphadenopathy Respiratory exam: Present: normal lung sounds bilaterally. Absent: respiratory distress, wheezes, rales, rhonchi, stridor Cardiovascular Exam: Present: irregular rhythm, normal heart sounds. Absent: regular rate, normal rhythm, systolic murmur, diastolic murmur, rubs, gallop, clicks GI/Abdominal exam: Present: soft, normal bowel sounds. Absent: distended, tende rness, guarding, rebound, rigid Extremities exam: Present: other (Pedal pulses equal bilaterally). Absent: pedal edema Skin exam: Present: warm, dry, intact, normal color. 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 Patient's labs are unremarkable. Patient does have a history of A. fib, EKG is consistent with this. Patient will be admitted for cardiology evaluation and repeat troponin. Patient will continue Eliquis at this time. Disposition Clinical Impression: Chest pain, A-fib Disposition: ADMITTED IP TO THIS HOSP Condition: Fair Referrals: Naveen Mcduffie DO [Primary Care Provider] - 1-2 days
[2019-06-02 07:37] LABS: Basophils # (A) 0.1 k/uL (0-0.2); Basophils % (A) 1 %; Eosinophils # (A) 0.1 k/uL (0-0.7); Eosinophils % (A) 2 %; HCT 41.5 % (34.0-46.0); HGB 12.9 gm/dL (11.4-16.0); Lymphocytes # (A) 1.2 k/uL (1.0-4.8); Lymphocytes % (A) 21 %; MCH 26.8 pg (25.0-35.0); MCHC 31.1 g/dL (31.0-37.0); MCV 86.2 fL (80.0-100.0); Mean Platelet Volume 7.4; Monocytes # (A) 0.3 k/uL (0-1.0); Monocytes % (A) 5 %; Neutrophils # (A) 3.7 k/uL (1.3-7.7); Neutrophils % (A) 69 %; Platelet Count 148 k/uL (150-450); RBC 4.82 m/uL (3.80-5.40); RDW 14.3 % (11.5-15.5); WBC 5.4 k/uL (3.8-10.6)
[2019-06-02 07:47] LABS: ALT 24 U/L (9-52); AST 26 U/L (14-36); African American GFR (CKD) >90 (>60 ml/min/1.73 sqM); Albumin 3.5 g/dL (3.5-5.0); Alkaline Phosphatase 137 U/L (38-126); Anion Gap 6 mmol/L; Blood Urea Nitrogen 13 mg/dL (7-17); Calcium 8.8 mg/dL (8.4-10.2); Carbon Dioxide 29 mmol/L (22-30); Chloride 108 mmol/L (98-107); Glucose 92 mg/dL (74-99); Magnesium 2.1 mg/dL (1.6-2.3); Potassium 3.6 mmol/L (3.5-5.1); Sodium 143 mmol/L (137-145); Total Bilirubin 0.9 mg/dL (0.2-1.3); Total Protein 6.4 g/dL (6.3-8.2)
--- NOTE | 2019-06-02 08:08 | XR ---
EXAMINATION TYPE: XR chest 2V DATE OF EXAM: 06/02/2019 COMPARISON: 12/24/2018 HISTORY: Shortness of breath TECHNIQUE: Frontal and lateral views of the chest are obtained. FINDINGS: Scattered senescent parenchymal changes noted. Hyperinflation compatible with COPD. No evidence for infiltrate. No evidence for atelectasis. Heart size is stable. Mediastinal structures are stable and grossly unremarkable. No evidence for hilar prominence. Degenerative changes dorsal spine. IMPRESSION: 1. No evidence for acute pulmonary disease.
[2019-06-02 08:25] LABS: Partial Thromboplastin Time 25.7 sec (22.0-30.0); Prothrombin Time 10.6 sec (9.0-12.0)
[2019-06-02] MEDS ORDERED: NITROGLYCERIN SL TABS 0.4 MG TAB SUBLINGUAL PRN (08:30)
[2019-06-02] MEDS ORDERED: IRBESARTAN 150 MG PO SCH (09:00)
[2019-06-02 14:10] VITALS: BMI 23.9
[2019-06-02] MEDS: LEVOTHYROXINE 75 MCG TAB PO SCH (15:55)
[2019-06-02] MEDS: ATENOLOL 50 MG TAB PO SCH ×2 (15:55→20:32)
[2019-06-02] MEDS: APIXABAN 2.5 MG TABLET PO SCH ×2 (15:55→20:31)
[2019-06-02] MEDS ORDERED: ACETAMINOPHEN TAB 325 MG TAB PO PRN (15:59)
[2019-06-02] MEDS ORDERED: LOSARTAN 50 MG TAB PO SCH (21:00)
[2019-06-02] MEDS ORDERED: ATORVASTATIN 40 MG TAB PO SCH (21:00)
[2019-06-02] MEDS ORDERED: amLODIPine 5 MG TAB PO SCH (21:00)
[2019-06-02 22:03] VITALS: RESP 17
[2019-06-03 04:49] VITALS: TEMP 98
[2019-06-03] MEDS: LEVOTHYROXINE 75 MCG TAB PO SCH (06:40)
[2019-06-03 06:50] LABS: HCT 43.4 % (34.0-46.0); HGB 13.9 gm/dL (11.4-16.0); MCH 27.8 pg (25.0-35.0); MCHC 32.1 g/dL (31.0-37.0); MCV 86.7 fL (80.0-100.0); Mean Platelet Volume 7.3; Platelet Count 191 k/uL (150-450); RBC 5.01 m/uL (3.80-5.40); RDW 14.3 % (11.5-15.5); WBC 7.2 k/uL (3.8-10.6)
[2019-06-03 07:02] LABS: African American GFR (CKD) >90 (>60 ml/min/1.73 sqM); Anion Gap 7 mmol/L; Blood Urea Nitrogen 13 mg/dL (7-17); Calcium 8.9 mg/dL (8.4-10.2); Carbon Dioxide 30 mmol/L (22-30); Chloride 106 mmol/L (98-107); Cholesterol 152 mg/dL (<200); Glucose 97 mg/dL (74-99); HDL Cholesterol 44 mg/dL (40-60); LDL Cholesterol,Calculated 91 mg/dL (0-99); Potassium 3.5 mmol/L (3.5-5.1); Sodium 143 mmol/L (137-145); Triglycerides 86 mg/dL (<150)
--- NOTE | 2019-06-03 08:30 | P.CRDCN ---
History of Present Illness Consult date: 06/03/19 Consult reason: chest pain History of present illness: This is an 89-year-old female patient of Dr. Gaytan with past medical history significant for chronic persistent atrial fibrillation on long-term with eliquis, coronary artery disease with subsequent bypass grafting, dyslipidemia and hypertension. She had a three-vessel bypass in 2006 with a LAU to the LAD, SVG to RCA, and SVG to OM1. Since then she underwent stenting of the SVG to the RCA in 2008. She presented to the hospital yesterday with midsternal chest pain that was sudden onset yesterday. She states she has had the same type of pain at home and other occasions but usually just goes away on its own. She denies any radiation, no nausea or vomiting, no sweats, no shortness of breath. She did not take any nitroglycerin but the pain has completely resolved and she is unsure what may be improvement. Her troponins have been negative on 3 draws, lipase 26. Initial platelet count was 140 8 repeat is 191, CBC is unremarkable, this morning's BMP is unremarkable. Triglycerides 86, cholesterol 152, LDL 91, HDL 44. EKG was atrial fibrillation at [address]-T wave changes. This morning her heart rate is running in the 80s, blood pressure 166/77, pulse ox 94% on room air. Most recent echocardiogram was performed November 2016 revealed preserved left ventricular systolic function with moderate tricuspid regurg as well as mild to moderate mitral regurg. Current cardiac medications include Norvasc 5 mg at bedtime, losartan 50 mg at bedtime, atorvastatin 40 mg daily, atenolol 50 milligrams twice a day, aspirin 81 mg daily and Eliquis 2.5 mg twice a day. Review of systems At the time of exam: CONSTITUTIONAL: Denies fever. Denies chills. EYES: Denies blurred vision. Denies vision changes. Denies eye pain. EARS, NOSE, MOUTH & THROAT: Denies headache. Denies sore throat. Denies ear pain. CARDIOVASCULAR: Denies chest pain. Denies shortness of breath. Denies orthopnea. Denies PND. Denies palpitations. RESPIRATORY: Denies cough. GASTROINTESTINAL: Denies abdominal pain. Denies diarrhea. Denies constipation. Denies nausea. Denies vomiting. MUSCULOSKELETAL: Denies myalgias. INTEGUMENTARY: Denies pruitis. Denies rash. NEUROLOGIC: Denies numbness. Denies tingling. Denies weakness. PSYCHIATRIC: Denies anxiety. Denies depression. ENDOCRINE: Denies fatigue. Denies weight change. Denies polydipsia. Denies polyurina. GENITOURINARY: Denies burning, hematuria or urgency with micturation. HEMATOLOGIC: Denies history of anemia. Denies bleeding. Physical exam Blood pressure 166/77, heart rate 80 afebrile GENERAL: This is an 89-year-old female resting in bed in no apparent distress at the time of my examination. HEENT: Head is atraumatic, normocephalic. Pupils are equal, round. Sclerae anicteric. Conjunctivae are clear. Mucous membranes of the mouth are moist. Neck is supple. There is no jugular venous distention. No carotid bruit is heard. LUNGS: Clear to auscultation no wheezes, rales or rhonchi. No chest wall tenderness is noted on palpation or with deep breathing. HEART: Irregular rate and rhythm with systolic murmur, no rubs or gallops. S1 and S2 heard. ABDOMEN: Soft, nontender. Bowel sounds are heard. No organomegaly noted. EXTREMITIES: No evidence of peripheral edema and no calf tenderness noted. VASCULAR: Radial and dorsalis pedis pulses palpated, no evidence of clubbing. NEUROLOGIC: Patient is awake, alert and oriented x3. ASSESSMENT 1. Chest pain of unclear etiology. Acute coronary syndrome ruled out 2. History of coronary artery disease with subsequent bypass grafting as well a stenting of one bypass graft. 3. Chronic persistent atrial fibrillation on long-term anticoagulation 4. Dyslipidemia 5. Hypertension PLAN Continue current home medications. An acute coronary event has been ruled out and her heart rate is controlled on current medication regimen. Patient is cleared for discharge home. Follow-up with Dr. Gaytan as an outpatient in 1-2 weeks. Thank you kindly for this consultation. Nurse Practitioner note has been reviewed, I agree with a documented findings and plan of care. Patient was seen and examined. Past Medical History Past Medical History: Atrial Fibrillation, Coronary Artery Disease (CAD), Cancer, Deep Vein Thrombosis (DVT), Eye Disorder, Hyperlipidemia, Hypertension, Osteoarthritis (OA), Pneumonia, Thyroid Disorder Additional Past Medical History / Comment(s): Possible common bile duct stone, DVT in leg (cannot recall laterallity), bilateral eye glaucoma, hypothyroid, skin cancer with removal, sinus issues at times. History of Any Multi-Drug Resistant Organisms: None Reported Past Surgical History: Appendectomy, Coronary Bypass/CABG, Heart Catheterization With Stent, Hernia Repair, Hysterectomy, Joint Replacement, Orthopedic Surgery Additional Past Surgical History / Comment(s): RT KNEE ARTHROSCOPY, MICHAEL KNEE'S REPLACED, thyroid surgery x 2, MAGNUS, EPS, CARDIOVERSION, 2006 CABG TRIPLE VESSEL, STENT X1, SX FOR HIATAL HERNIA, COLONOSCOPY 2011. Past Anesthesia/Blood Transfusion Reactions: No Reported Reaction Date of Last Stent Placement:: 2008 Smoking Status: Never smoker - Past Family History Mother Additional Family Medical History / Comment(s): " OF OLD AGE IN HER 90'S" Father Additional Family Medical History / Comment(s): " OF OLD AGE IN HIS 90'S" Sister(s) Additional Family Medical History / Comment(s): HEART CONDITIONS- PTS UNSURE OF WHAT Brother(s) Family Medical History: Cancer Additional Family Medical History / Comment(s): HEART CONDITIONS- PTS UNSURE OF WHAT Medications and Allergies Home Medications Medication Instructions Recorded Confirmed Type Aspirin 81 mg PO DAILY 08/01/14 06/02/19 History Atenolol [Tenormin] 50 mg PO BID 08/01/14 06/02/19 History Levothyroxine Sodium [Synthroid] 75 mcg PO DAILY 08/01/14 06/02/19 History Losartan [Cozaar] 50 mg PO HS 08/01/14 06/02/19 History Atorvastatin [Lipitor] 40 mg PO HS 12/20/16 06/02/19 History Apixaban [Eliquis] 2.5 mg PO BID 06/14/17 06/02/19 History amLODIPine [Norvasc] 5 mg PO HS 10/02/17 06/02/19 History Irbesartan [Avapro] 150 mg PO DAILY 06/02/19 06/02/19 History Allergies Allergy/AdvReac Type Severity Reaction Status Date / Time hydroxyzine HCl Allergy Rash/Hives Verified 06/02/19 07:31 [From Vistaril] hydroxyzine pamoate Allergy Rash/Hives Verified 06/02/19 07:31 [From Vistaril] Physical Exam Vitals: Vital Signs Temp Pulse Pulse Resp BP BP Pulse Ox 06/03/19 04:00 98 F 80 17 166/77 94 L 06/02/19 23:57 83 17 120/73 91 L 06/02/19 20:00 98.2 F 91 17 164/92 94 L 06/02/19 16:00 113 H 16 159/90 94 L 06/02/19 12:00 98.4 F 92 111 H 16 155/96 140/80 95 06/02/19 11:05 100 18 152/87 98 06/02/19 11:00 93 20 96 06/02/19 10:00 110 H 20 162/88 95 06/02/19 09:00 106 H 17 172/98 97 Intake and Output 06/02/19 06/03/19 06/03/19 22:59 06:59 14:59 Intake Total 120 Output Total 300 Balance -180 Intake: Oral 120 Output: Urine 300 Other: # Voids 1 Weight 56 kg Results 06/03/19 06:05 06/03/19 06:05 Cardiac Enzymes 06/02/19 06/02/19 06/02/19 Range/Units 07:30 13:34 19:15 Troponin I <0.012 <0.012 <0.012 (0.000-0.034) ng/mL Coagulation 06/02/19 Range/Units 07:30 PT 10.6 (9.0-12.0) sec APTT 25.7 (22.0-30.0) sec Lipids 06/03/19 Range/Units 06:05 Triglycerides 86 (<150) mg/dL Cholesterol 152 (<200) mg/dL HDL Cholesterol 44 (40-60) mg/dL CBC 06/03/19 Range/Units 06:05 WBC 7.2 (3.8-10.6) k/uL RBC 5.01 (3.80-5.40) m/uL Hgb 13.9 (11.4-16.0) gm/dL Hct 43.4 (34.0-46.0) % Plt Count 191 (150-450) k/uL Comprehensive Metabolic Panel 06/03/19 Range/Units 06:05 Sodium 143 (137-145) mmol/L Potassium 3.5 (3.5-5.1) mmol/L Chloride 106 (98-107) mmol/L Carbon Dioxide 30 (22-30) mmol/L BUN 13 (7-17) mg/dL Creatinine 0.64 (0.52-1.04) mg/dL Glucose 97 (74-99) mg/dL Calcium 8.9 (8.4-10.2) mg/dL Current Medications Generic Name Dose Route Start Last Admin Trade Name Freq PRN Reason Stop Dose Admin Acetaminophen 650 mg 06/02/19 15:59 06/02/19 17:10 Tylenol Tab PO 650 mg Q6HR PRN Administration Fever and/ or Pain Amlodipine Besylate 5 mg 06/02/19 21:00 06/02/19 20:31 Norvasc PO 5 mg HS ROSSY Administration Apixaban 2.5 mg 06/02/19 09:00 06/02/19 20:31 Eliquis PO 2.5 mg BID ROSSY Administration Aspirin 81 mg 06/03/19 09:00 Aspirin PO DAILY ROSSY Atenolol 50 mg 06/02/19 09:00 06/02/19 20:32 Tenormin PO 50 mg BID ROSSY Administration Atorvastatin Calcium 40 mg 06/02/19 21:00 06/02/19 20:32 Lipitor PO 40 mg HS ROSSY Administration Levothyroxine Sodium 75 mcg 06/02/19 09:00 06/03/19 06:40 Synthroid PO 75 mcg DAILY@0630 ROSSY Administration Losartan Potassium 50 mg 06/02/19 21:00 06/02/19 20:32 Cozaar PO 50 mg HS ROSSY Administration Nitroglycerin 0.4 mg 06/02/19 08:30 Nitrostat SUBLINGUAL Q5M PRN Chest Pain Intake and Output 06/02/19 06/03/19 06/03/19 22:59 06:59 14:59 Intake Total 120 Output Total 300 Balance -180 Intake: Oral 120 Output: Urine 300 Other: # Voids 1 Weight 56 kg 06/03/19 06:05 06/03/19 06:05
[2019-06-03] MEDS: APIXABAN 2.5 MG TABLET PO SCH (08:36)
[2019-06-03] MEDS: ATENOLOL 50 MG TAB PO SCH (08:37)
[2019-06-03 08:40] VITALS: BP 149/77; PULSE 95
[2019-06-03] MEDS ORDERED: ASPIRIN 81 MG PO SCH ×2 (09:00)
[2019-06-03] MEDS ORDERED: ASPIRIN 325 MG TAB PO SCH (09:00)
--- NOTE | 2019-06-03 12:22 | P.HPIM ---
History of Present Illness H&P Date: 06/03/19 Chief Complaint: chest pain 89-year-old female patient of Dr. Gaytan with past medical history significant for chronic persistent atrial fibrillation on long-term with eliquis, coronary artery disease with subsequent bypass grafting, dyslipidemia and hypertension. She had a three-vessel bypass in 2006 with a LAU to the LAD, SVG to RCA, and SVG to OM1. Since then she underwent stenting of the SVG to the RCA in 2008. She presented to the hospital yesterday with midsternal chest pain that was sudden onset yesterday. She states she has had the same type of pain at home and other occasions but usually just goes away on its own. She denies any radiation, no nausea or vomiting, no sweats, no shortness of breath. She did not take any nitroglycerin but the pain has completely resolved and she is unsure what may be improvement. Her troponins have been negative on 3 draws, lipase 26. Initial platelet count was 140 8 repeat is 191, CBC is unremarkable, this morning's BMP is unremarkable. Triglycerides 86, cholesterol 152, LDL 91, HDL 44. EKG was atrial fibrillation at [address]-T wave changes. This morning her heart rate is running in the 80s, blood pressure 166/77, pulse ox 94% on room air. Most recent echocardiogram was performed November 2016 revealed preserved left ventricular systolic function with moderate tricuspid regurg as well as mild to moderate mitral regurg. Current cardiac medications include Norvasc 5 mg at bedtime, losartan 50 mg at bedtime, atorvastatin 40 mg daily, atenolol 50 milligrams twice a day, aspirin 81 mg daily and Eliquis 2.5 mg twice a day. Review of Systems CONSTITUTIONAL: Denies fever. Denies chills. EYES: Denies blurred vision. Denies vision changes. Denies eye pain. EARS, NOSE, MOUTH & THROAT: Denies headache. Denies sore throat. Denies ear pain. CARDIOVASCULAR: Denies chest pain. Denies shortness of breath. Denies orthopnea. Denies PND. Denies palpitations. RESPIRATORY: Denies cough. GASTROINTESTINAL: Denies abdominal pain. Denies diarrhea. Denies constipation. Denies nausea. Denies vomiting. MUSCULOSKELETAL: Denies myalgias. INTEGUMENTARY: Denies pruitis. Denies rash. NEUROLOGIC: Denies numbness. Denies tingling. Denies weakness. PSYCHIATRIC: Denies anxiety. Denies depression. ENDOCRINE: Denies fatigue. Denies weight change. Denies polydipsia. Denies juanito yurina. GENITOURINARY: Denies burning, hematuria or urgency with micturation. HEMATOLOGIC: Denies history of anemia. Denies bleeding. Past Medical History Past Medical History: Atrial Fibrillation, Coronary Artery Disease (CAD), Cancer, Deep Vein Thrombosis (DVT), Eye Disorder, Hyperlipidemia, Hypertension, Osteoarthritis (OA), Pneumonia, Thyroid Disorder Additional Past Medical History / Comment(s): Possible common bile duct stone, DVT in leg (cannot recall laterallity), bilateral eye glaucoma, hypothyroid, skin cancer with removal, sinus issues at times. History of Any Multi-Drug Resistant Organisms: None Reported Past Surgical History: Appendectomy, Coronary Bypass/CABG, Heart Catheterization With Stent, Hernia Repair, Hysterectomy, Joint Replacement, Orthopedic Surgery Additional Past Surgical History / Comment(s): RT KNEE ARTHROSCOPY, MICHAEL KNEE'S REPLACED, thyroid surgery x 2, MAGNUS, EPS, CARDIOVERSION, 2005 CABG TRIPLE VESSEL, STENT X1, SX FOR HIATAL HERNIA, COLONOSCOPY 2011. Past Anesthesia/Blood Transfusion Reactions: No Reported Reaction Date of Last Stent Placement:: 2008 Smoking Status: Never smoker - Past Family History Mother Additional Family Medical History / Comment(s): " OF OLD AGE IN HER 90'S" Father Additional Family Medical History / Comment(s): " OF OLD AGE IN HIS 90'S" Sister(s) Additional Family Medical History / Comment(s): HEART CONDITIONS- PTS UNSURE OF WHAT Brother(s) Family Medical History: Cancer Additional Family Medical History / Comment(s): HEART CONDITIONS- PTS UNSURE OF WHAT Medications and Allergies Home Medications Medication Instructions Recorded Confirmed Type Aspirin 81 mg PO DAILY 08/01/14 06/02/19 History Atenolol [Tenormin] 50 mg PO BID 08/01/14 06/02/19 History Levothyroxine Sodium [Synthroid] 75 mcg PO DAILY 08/01/14 06/02/19 History Losartan [Cozaar] 50 mg PO HS 08/01/14 06/02/19 History Atorvastatin [Lipitor] 40 mg PO HS 12/20/16 06/02/19 History Apixaban [Eliquis] 2.5 mg PO BID 06/14/17 06/02/19 History amLODIPine [Norvasc] 5 mg PO HS 10/02/17 06/02/19 History Irbesartan [Avapro] 150 mg PO DAILY 06/02/19 06/02/19 History Allergies Allergy/AdvReac Type Severity Reaction Status Date / Time hydroxyzine HCl Allergy Rash/Hives Verified 06/02/19 07:31 [From Vistaril] hydroxyzine pamoate Allergy Rash/Hives Verified 06/02/19 07:31 [From Vistaril] Physical Exam Vitals: Vital Signs Temp Pulse Pulse Resp BP BP Pulse Ox 06/03/19 04:00 98 F 80 17 166/77 94 L 06/02/19 23:57 83 17 120/73 91 L 06/02/19 20:00 98.2 F 91 17 164/92 94 L 06/02/19 16:00 113 H 16 159/90 94 L 06/02/19 12:00 98.4 F 92 111 H 16 155/96 140/80 95 06/02/19 11:05 100 18 152/87 98 06/02/19 11:00 93 20 96 06/02/19 10:00 110 H 20 162/88 95 06/02/19 09:00 106 H 17 172/98 97 06/02/19 08:00 101 H 20 93 L Intake and Output 06/02/19 06/03/19 06/03/19 22:59 06:59 14:59 Intake Total 120 Output Total 300 Balance -180 Intake: Oral 120 Output: Urine 300 Other: # Voids 1 Weight 56 kg Blood pressure 166/77, heart rate 80 afebrile GENERAL: This is an 89-year-old female resting in bed in no apparent distress at the time of my examination. HEENT: Head is atraumatic, normocephalic. Pupils are equal, round. Sclerae anicteric. Conjunctivae are clear. Mucous membranes of the mouth are moist. Neck is supple. There is no jugular venous distention. No carotid bruit is heard. LUNGS: Clear to auscultation no wheezes, rales or rhonchi. No chest wall tenderness is noted on palpation or with deep breathing. HEART: Irregular rate and rhythm with systolic murmur, no rubs or gallops. S1 and S2 heard. ABDOMEN: Soft, nontender. Bowel sounds are heard. No organomegaly noted. EXTREMITIES: No evidence of peripheral edema and no calf tenderness noted. VASCULAR: Radial and dorsalis pedis pulses palpated, no evidence of clubbing. NEUROLOGIC: Patient is awake, alert and oriented x3. Results CBC & Chem 7: 06/03/19 06:05 06/03/19 06:05 Thrombosis Risk Factor Assmnt - Choose All That Apply Any of the Below Risk Factors Present?: Yes Other Risk Factors: Yes Each Risk Factor Represents 2 Points: Malignancy Each Risk Factor Represents 3 Points: Age 75 years or older, History of DVT/PE Other congenital or acquired thrombophilia - If yes, enter type in comment: No Thrombosis Risk Factor Assessment Total Risk Factor Score: 8 Thrombosis Risk Factor Assessment Level: High Risk Assessment and Plan Assessment: 1. Chest pain of unclear etiology. Acute coronary syndrome ruled out Patient has been evaluated by cardiology; and is recommended to continue all current medications; no further workup was recommended 2. History of coronary artery disease with subsequent bypass grafting as well a stenting of one bypass graft; stable on current management. 3. Chronic persistent atrial fibrillation; remains on long-term anticoagulation and rate controlled on atenolol 4. Dyslipidemia; continue with Lipitor 40 mg by mouth daily at bedtime 5. Hypertension; stable on Avapro 150 mg daily along with Cozaar 50 mg daily at bedtime and atenolol 51 g twice a day 6. Hypothyroidism - Levothyroxine 75 MCG daily 7. DVT Ppx; systemic anticoag CODE STATUS; full code Time with Patient: Greater than 30
--- NOTE | 2019-06-03 12:23 | P.DS ---
Providers Date of admission: 06/02/19 09:08 Expected date of discharge: 06/03/19 Attending physician: Naveen Mcduffie Consults: 06/02/19 08:31 Consult Physician Urgent Consulting Provider: Laurel Gaytan Consult Reason/Comments: chest pain Do you want consulting provider notified?: Yes Primary care physician: Naveen Mcduffie Hospital Course: Please see H&P dated 06/03/2019 for detailed hospital course and plan of care Patient Condition at Discharge: Fair Plan - Discharge Summary Discharge Rx Participant: No New Discharge Prescriptions: Continue Losartan [Cozaar] 50 mg PO HS Atenolol [Tenormin] 50 mg PO BID Aspirin 81 mg PO DAILY Levothyroxine Sodium [Synthroid] 75 mcg PO DAILY Atorvastatin [Lipitor] 40 mg PO HS Apixaban [Eliquis] 2.5 mg PO BID amLODIPine [Norvasc] 5 mg PO HS Irbesartan [Avapro] 150 mg PO DAILY Discharge Medication List Aspirin 81 mg PO DAILY 08/01/14 [History] Atenolol [Tenormin] 50 mg PO BID 08/01/14 [History] Levothyroxine Sodium [Synthroid] 75 mcg PO DAILY 08/01/14 [History] Losartan [Cozaar] 50 mg PO HS 08/01/14 [History] Atorvastatin [Lipitor] 40 mg PO HS 12/20/16 [History] Apixaban [Eliquis] 2.5 mg PO BID 06/14/17 [History] amLODIPine [Norvasc] 5 mg PO HS 10/02/17 [History] Irbesartan [Avapro] 150 mg PO DAILY 06/02/19 [History] Follow up Appointment(s)/Referral(s): Laurel Gaytan MD [STAFF PHYSICIAN] - 06/09/19 10:00 am Naveen Mcduffie DO [Primary Care Provider] - 1-2 days (Call office on Wednesday for follow up appointment) Patient Instructions/Handouts: A-fib (Atrial Fibrillation) (DC), Chest Pain (DC) Discharge Disposition: HOME SELF-CARE
== END 2019-06-03 10:54 | disposition home or self-care (01) ==
LOC: EC 06:39 → 1SOBS 09:08 → 3SCARD 11:27
PROVIDERS: ADMIT Family Medicine; ATTEND Family Medicine
DX: R07.89 Other chest pain (principal); I25.810 Atherosclerosis of coronary artery bypass graft(s) without angina pectoris; I48.1 Persistent atrial fibrillation; I08.1 Rheumatic disorders of both mitral and tricuspid valves; I10 Essential (primary) hypertension; E78.5 Hyperlipidemia, unspecified; E03.9 Hypothyroidism, unspecified; H40.9 Unspecified glaucoma; M19.90 Unspecified osteoarthritis, unspecified site; Z79.82 Long term (current) use of aspirin; Z79.01 Long term (current) use of anticoagulants; Z79.890 Hormone replacement therapy; Z79.899 Other long term (current) drug therapy; Z88.8 Allergy status to other drugs, medicaments and biological substances; Z85.828 Personal history of other malignant neoplasm of skin; Z86.718 Personal history of other venous thrombosis and embolism; Z95.1 Presence of aortocoronary bypass graft; Z90.710 Acquired absence of both cervix and uterus; Z95.5 Presence of coronary angioplasty implant and graft; Z96.653 Presence of artificial knee joint, bilateral; Z90.49 Acquired absence of other specified parts of digestive tract; Z82.49 Family history of ischemic heart disease and other diseases of the circulatory system; Z80.9 Family history of malignant neoplasm, unspecified
CPT/HCPCS: 99285; 36415; 93005; 83880; 80061; 80053; 80048; 83690; 83735; 84484; 85025; 85027; 85610; 85730; 71046; G0378 ×2

== ENCOUNTER 2020-01-23 11:49 | Emergency (ER) | payer MEDICARE, BC ==
[2020-01-23 12:03] VITALS: RESP 18; TEMP 98.2
--- NOTE | 2020-01-23 12:42 | ED ---
General Adult HPI - General Chief complaint: Fall Stated complaint: Leg and rib pain Time Seen by Provider: 01/23/20 12:05 Source: patient, family, RN notes reviewed, old records reviewed Mode of arrival: ambulatory Limitations: no limitations - History of Present Illness Initial comments: 89-year-old female patient presents ED for chief complaint of fall on Wednesday. Patient reports that on Wednesday she was standing feeding birds when she fell to the ground. Patient reports she landed on her left side hitting her left knee left shoulder and left ribs. She reports minor trauma to the left side of her head. Denies any loss of consciousness. Patient is anticoagulated on eliquis. Patient reports that she has had left knee shoulder and rib pain since. Denies any headaches or changes in vision. Systemic: Pt denies fatigue, fever/chills, rash. Pt denies weakness, night sweats, weight loss. Neuro: Pt denies headache, visual disturbances, syncope or pre-syncope. HEENT: Pt denies ocular discharge or irritation, otalgia, rhinorrhea, pharyngitis or notable lymphadenopathy. Cardiopulmonary: Pt denies chest pain, SOB, heart palpitations, dyspnea on exertion. Abdominal/GI: Pt denies abdominal pain, n/v/d. : Pt denies dysuria, burning w/ urination, frequency/urgency. Denies new onset urinary or bowel incontinence. MSK: Pt denies myalgia, loss of strength or function in extremities. Neuro: Pt denies new onset weakness, paresthesias. - Related Data Home Medications Medication Instructions Recorded Confirmed Aspirin 81 mg PO DAILY 08/01/14 06/02/19 Atenolol [Tenormin] 50 mg PO BID 08/01/14 06/02/19 Levothyroxine Sodium [Synthroid] 75 mcg PO DAILY 08/01/14 06/02/19 Losartan [Cozaar] 50 mg PO HS 08/01/14 06/02/19 Atorvastatin [Lipitor] 40 mg PO HS 12/20/16 06/02/19 Apixaban [Eliquis] 2.5 mg PO BID 06/14/17 06/02/19 amLODIPine [Norvasc] 5 mg PO HS 10/02/17 06/02/19 Irbesartan [Avapro] 150 mg PO DAILY 06/02/19 06/02/19 Allergies Allergy/AdvReac Type Severity Reaction Status Date / Time hydroxyzine HCl Allergy Rash/Hives Verified 01/23/20 12:03 [From Vistaril] hydroxyzine pamoate Allergy Rash/Hives Verified 01/23/20 12:03 [From Vistaril] Review of Systems ROS Statement: Those systems with pertinent positive or pertinent negative responses have been documented in the HPI. ROS Other: All systems not noted in ROS Statement are negative. Past Medical History Past Medical History: Atrial Fibrillation, Coronary Artery Disease (CAD), Cancer, Deep Vein Thrombosis (DVT), Eye Disorder, Hyperlipidemia, Hypertension, Osteoarthritis (OA), Pneumonia, Thyroid Disorder Additional Past Medical History / Comment(s): Possible common bile duct stone, DVT in leg (cannot recall laterallity), bilateral eye glaucoma, hypothyroid, skin cancer with removal, sinus issues at times. History of Any Multi-Drug Resistant Organisms: None Reported Past Surgical History: Appendectomy, Coronary Bypass/CABG, Heart Catheterization With Stent, Hernia Repair, Hysterectomy, Joint Replacement, Orthopedic Surgery Additional Past Surgical History / Comment(s): RT KNEE ARTHROSCOPY, MICHAEL KNEE'S REPLACED, thyroid surgery x 2, MAGNUS, EPS, CARDIOVERSION, 2005 CABG TRIPLE VESSEL, STENT X1, SX FOR HIATAL HERNIA, COLONOSCOPY 2011. Past Anesthesia/Blood Transfusion Reactions: No Reported Reaction Date of Last Stent Placement:: 2008 Past Psychological History: No Psychological Hx Reported Smoking Status: Never smoker - Past Family History Mother Additional Family Medical History / Comment(s): " OF OLD AGE IN HER 90'S" Father Additional Family Medical History / Comment(s): " OF OLD AGE IN HIS 90'S" Sister(s) Additional Family Medical History / Comment(s): HEART CONDITIONS- PTS UNSURE OF WHAT Brother(s) Family Medical History: Cancer Additional Family Medical History / Comment(s): HEART CONDITIONS- PTS UNSURE OF WHAT General Exam - General Exam Comments Initial Comments: Constitutional: NAD, AOX3, Pt has pleasant affect. HEENT: NC/AT, trachea midline, neck supple, no lymphadenopathy. Posterior pharynx non erythematous, without exudates. External ears appear normal, without discharge. Mucous membranes moist. Eyes PERRLA, EOM intact. There is no scleral icterus. No pallor noted. Cardiopulmonary: RRR, no murmurs, rubs or gallops, no JVD noted. Lungs CTAB in anterior and posterior hand. No peripheral edema. Abdominal exam: Abdomen soft and non-distended. Abdomen non-tender to palpation in all 4 quadrants. Bowel sounds active in LLQ. No hepatosplenomegaly. No ecchymosis Neuro: CN II-XII intact. No nuchal rigidity. No raccon eyes, no cleaning sign, no hemotympanum. No cervical spinal tenderness. MSK: Mild bruising noted to the left anterior knee region. Range of motion is intact. Mild tenderness in anterior aspect of knee. No proximal tib-fib tenderness no other areas of discomfort. Left lateral rib mildly tender to palpation no skin changes. Approximately fifth rib. Full range of motion of shoulder. No focal area of shoulder tenderness. No posterior calf tenderness bilaterally, homans sign negative bilaterally. Posterior tibialis and radial pulse +2 bilaterally. Sensation intact in upper and lower extremities. Full active ROM in upper and lower extremities, 5/5 stregnth. Limitations: no limitations Course Vital Signs 01/23/20 01/23/20 11:59 14:15 Temperature 98.2 F Pulse Rate 97 90 Respiratory 18 18 Rate Blood Pressure 125/81 151/93 O2 Sat by Pulse 97 96 Oximetry Medical Decision Making - Medical Decision Making 89-year-old female patient presents ED for chief complaint of fall on Wednesday. Patient reports that on Wednesday she was standing feeding birds when she fell to the ground. Patient reports she landed on her left side hitting her left knee left shoulder and left ribs. She reports minor trauma to the left side of her head. Denies any loss of consciousness. Patient is anticoagulated on eliquis. Patient reports that she has had left knee shoulder and rib pain since. Denies any headaches or changes in vision. Patient vital signs are stable, afebrile. Physical exam displayed: Mild bruising noted to the left anterior knee region. Range of motion is intact. Mild tenderness in anterior aspect of knee. No proximal tib-fib tenderness no other areas of discomfort. Left lateral rib mildly tender to palpation no skin changes. Approximately fifth rib. Full range of motion of shoulder. No focal area of shoulder tenderness. Neurologically intact. It was further difficulty. Plain films displayed no acute fracture, osteopenia arthropathy. Stable left-sided consolidation pleural thickening on the chest x-ray. CT brain without contrast load displayed degenerative and nonspecific white matter changes. No acute hemorrhage or mass effect. Patient ambulatory without difficulty. Patient discharged patient will follow up with primary care provider for further evaluation of left-sided consolidation on lung. Return to ER if condition worsens. Case discussed with Dr. Holm. Disposition Clinical Impression: Fall Disposition: HOME SELF-CARE Condition: Stable Instructions (If sedation given, give patient instructions): Fall Prevention (ED) Additional Instructions: Follow-up with primary care provider tomorrow. Have primary care provider review imaging results including chest x ray. Return to ER if condition worsens in any way. Orthopedic consult provided if pain worsens or does not improve. Is patient prescribed a controlled substance at d/c from ED?: No Referrals: Naveen Mcduffei DO [Primary Care Provider] - 1-2 days Latrell Meadows PAC [PHYSICIAN [employer] MECHANIC] - 1-2 days
--- NOTE | 2020-01-23 12:59 | XR ---
EXAMINATION TYPE: XR knee 4V LT DATE OF EXAM: 01/23/2020 COMPARISON: NONE HISTORY: Pain TECHNIQUE: 4 views submitted FINDINGS: Postsurgical change with surgical clips and soft tissue calcification. Diffuse soft tissue edema noted. No acute fracture or dislocation. IMPRESSION: 1. No acute fracture. 2. Postsurgical changes
--- NOTE | 2020-01-23 13:00 | XR ---
EXAMINATION TYPE: XR shoulder complete LT DATE OF EXAM: 01/23/2020 COMPARISON: NONE HISTORY: Pain TECHNIQUE: Three views are submitted. FINDINGS: The osseous structures are intact. There is no acute fracture or dislocation. Diffuse osteopenia wit h arthropathy of the shoulders. Postsurgical change overlying the sternum. IMPRESSION: 1. Diffuse osteopenia and arthropathy of the shoulders.
--- NOTE | 2020-01-23 13:03 | XR ---
EXAMINATION TYPE: XR ribs LT w pa chest xray DATE OF EXAM: 01/23/2020 COMPARISON: 06/02/2019 HISTORY: Pain TECHNIQUE: Frontal view of the chest and 3 views of the rib cage submitted FINDINGS: Heart is enlarged and there is a left-sided pleural effusion or pleural thickening which is similar to the x-ray of 2019. Sternotomy wires are seen. There is a coarsened interstitium with diff use osteopenia and arthropathy of the shoulders. Slight deformity of the distal left clavicle appears chronic and stable from prior exam. No pneumothorax. No new area of consolidation. Hypertrophic and degenerative change of the spine. Epicardial lead incidentally noted. Vascular calcifications noted. No acute displaced rib fracture. IMPRESSION: 1. No acute displaced rib fracture. 2. Stable left-sided consolidation and pleural thickening or effusion unchanged from 2019 and therefo re chronic.
--- NOTE | 2020-01-23 14:06 | CT ---
EXAMINATION TYPE: CT brain wo con DATE OF EXAM: 01/23/2020 COMPARISON: 12/20/2016 HISTORY: Fall, denies hitting head pain CT DLP: 1055.4 mGycm Automated exposure control for dose reduction was used. FINDINGS: Intracranial atherosclerotic changes are seen and there is moderate generalized degenerative change w ith faint low-attenuation the white matter most typical remote microvascular ischemia. No acute hemorrhage or mass effect. No midline shift. Calcification within a right parietal superior sulcus image 40 stable from the prior exam. Calvarium intact. Hyperostosis of the frontal bone. IMPRESSION: 1. Degenerative and nonspecific white matter changes most typical remote microvascular ischemia.
[2020-01-23 14:23] VITALS: BP 151/93; PULSE 90
== END 2020-01-23 14:47 | disposition home or self-care (01) ==
LOC: EC 11:49
DX: S80.02XA Contusion of left knee, initial encounter (principal); S09.90XA Unspecified injury of head, initial encounter; G31.9 Degenerative disease of nervous system, unspecified; R90.82 White matter disease, unspecified; S49.92XA Unspecified injury of left shoulder and upper arm, initial encounter; S29.9XXA Unspecified injury of thorax, initial encounter; I48.91 Unspecified atrial fibrillation; I25.10 Atherosclerotic heart disease of native coronary artery without angina pectoris; E78.5 Hyperlipidemia, unspecified; I10 Essential (primary) hypertension; M19.90 Unspecified osteoarthritis, unspecified site; H40.9 Unspecified glaucoma; E03.9 Hypothyroidism, unspecified; Z79.82 Long term (current) use of aspirin; Z79.899 Other long term (current) drug therapy; Z79.01 Long term (current) use of anticoagulants; Z88.8 Allergy status to other drugs, medicaments and biological substances; Z79.890 Hormone replacement therapy; Z86.718 Personal history of other venous thrombosis and embolism; Z95.1 Presence of aortocoronary bypass graft; Z85.828 Personal history of other malignant neoplasm of skin; Z95.5 Presence of coronary angioplasty implant and graft; Z96.653 Presence of artificial knee joint, bilateral; Z98.890 Other specified postprocedural states; W18.30XA Fall on same level, unspecified, initial encounter; Y93.89 Activity, other specified; Y92.009 Unspecified place in unspecified non-institutional (private) residence as the place of occurrence of the external cause
CPT/HCPCS: 70450; 99284

== ENCOUNTER 2020-05-15 17:23 | Emergency (ER) | payer MEDICARE, BC ==
[2020-05-15 17:28] VITALS: BP 155/81; PULSE 90; RESP 18; TEMP 98
[2020-05-15] MEDS ORDERED: methylPREDNISolone SOD SUCCI 125 MG/2 ML VIAL IM ONE (17:35)
[2020-05-15] MEDS ORDERED: FAMOTIDINE 20 MG TAB PO STA (17:35)
--- NOTE | 2020-05-15 17:45 | ED ---
Allergic Reaction HPI - General Chief complaint: Allergic Reaction Stated complaint: bee sting Time Seen by Provider: 05/15/20 17:31 Source: patient Mode of arrival: ambulatory Limitations: no limitations - History of Present Illness Initial Comments: 89-year-old female presenting today for chief complaint of bee sting she states she started her buttock her right side of forehead, right hand and her left arm. States occurred while weeding. Patient states she trippped while running away into the grass. Denies head injury. LOC. Denies extremity pain, back pain,neck pain. States only pain is at site of stings. Patient states she was nervous because there was swelling at the site of the stings and presented to the ER. denies taking medications prior to coming ot the ER. Denies lip/tongue swelling, denies rashes, denies n//v/d or abdominal pain. Denies difficulty breathing, wheezing. She appears well nontoxic on arrival - Related Data Home Medications Medication Instructions Recorded Confirmed Aspirin 81 mg PO DAILY 08/01/14 06/02/19 Atenolol [Tenormin] 50 mg PO BID 08/01/14 06/02/19 Levothyroxine Sodium [Synthroid] 75 mcg PO DAILY 08/01/14 06/02/19 Losartan [Cozaar] 50 mg PO HS 08/01/14 06/02/19 Atorvastatin [Lipitor] 40 mg PO HS 12/20/16 06/02/19 Apixaban [Eliquis] 2.5 mg PO BID 06/14/17 06/02/19 amLODIPine [Norvasc] 5 mg PO HS 10/02/17 06/02/19 Irbesartan [Avapro] 150 mg PO DAILY 06/02/19 06/02/19 Previous Rx's Medication Instructions Recorded predniSONE [Deltasone] 20 mg PO DAILY 4 Days #4 tab 05/15/20 Allergies Allergy/AdvReac Type Severity Reaction Status Date / Time hydroxyzine HCl Allergy Rash/Hives Verified 05/15/20 17:29 [From Vistaril] hydroxyzine pamoate Allergy Rash/Hives Verified 05/15/20 17:29 [From Vistaril] Review of Systems ROS Statement: Those systems with pertinent positive or pertinent negative responses have been documented in the HPI. ROS Other: All systems not noted in ROS Statement are negative. Past Medical History Past Medical History: Atrial Fibrillation, Coronary Artery Disease (CAD), Cancer, Deep Vein Thrombosis (DVT), Eye Disorder, Hyperlipidemia, Hypertension, Osteoarthritis (OA), Pneumonia, Thyroid Disorder Additional Past Medical History / Comment(s): Possible common bile duct stone, DVT in leg (cannot recall laterallity), bilateral eye glaucoma, hypothyroid, skin cancer with removal, sinus issues at times. History of Any Multi-Drug Resistant Organisms: None Reported Past Surgical History: Appendectomy, Coronary Bypass/CABG, Heart Catheterization With Stent, Hernia Repair, Hysterectomy, Joint Replacement, Orthopedic Surgery Additional Past Surgical History / Comment(s): RT KNEE ARTHROSCOPY, MICHAEL KNEE'S REPLACED, thyroid surgery x 2, MAGNUS, EPS, CARDIOVERSION, 2005 CABG TRIPLE VESSEL, STENT X1, SX FOR HIATAL HERNIA, COLONOSCOPY 2011. Past Anesthesia/Blood Transfusion Reactions: No Reported Reaction Date of Last Stent Placement:: 2008 Past Psychological History: No Psychological Hx Reported Past Alcohol Use History: None Reported Past Drug Use History: None Reported - Past Family History Mother Additional Family Medical History / Comment(s): " OF OLD AGE IN HER 90'S" Father Additional Family Medical History / Comment(s): " OF OLD AGE IN HIS 90'S" Sister(s) Additional Family Medical History / Comment(s): HEART CONDITIONS- PTS UNSURE OF WHAT Brother(s) Family Medical History: Cancer Additional Family Medical History / Comment(s): HEART CONDITIONS- PTS UNSURE OF WHAT General Exam - General Exam Comments Initial Comments: General: The patient is awake and alert, in no distress, and does not appear acutely ill. Eye: +3 mm pupils are equal, round and reactive to light, extra-ocular movements are intact. No nystagmus. There is normal conjunctiva bilaterally. No signs of icterus. Ears, nose, mouth and throat: There are moist mucous membranes and no oral lesions. Neck: The neck is supple, there is no tenderness or JVD. Cardiovascular: There is a regular rate and rhythm. No murmur, rub or gallop is appreciated. Respiratory: Lungs are clear to auscultation, respirations are non-labored, breath sounds are equal. No wheezes, stridor, rales, or rhonchi. Gastrointestinal: Soft, non-distended, non-tender abdomen without masses or organomegaly noted. There is no rebound or guarding present. Musculoskeletal: Normal ROM, no tenderness. Strength 5/5. Sensation intact. Radial pulses equal bilaterally 2+. Neurological: A&O x 3. CN II-XII intact grossly, There are no obvious motor or sensory deficits. Coordination appears grossly intact. Speech is normal. Skin: Skin is warm and dry and no rashes or lesions are noted, there is swelling to the palm of the right hand, there is no swelling, redness of buttock b/l. no obvios lesions. pinpoint redness of the left forearm dorsal aspect as well as right side of forehead. Psychiatric: Cooperative, appropriate mood & affect, normal judgment. Limitations: no limitations Course Vital Signs 05/15/20 17:24 Temperature 98.0 F Pulse Rate 90 Respiratory 18 Rate Blood Pressure 155/81 O2 Sat by Pulse 98 Oximetry Medical Decision Making - Medical Decision Making 89yo female presenting today for cc of bee sting. local reaction noted. did trip fall. denies head injury/headaches, no focal neurological deficits or neck pain. patient will be discharged with pcp f/u and steroids. Disposition Clinical Impression: Bee sting Disposition: HOME SELF-CARE Condition: Good Instructions (If sedation given, give patient instructions): Insect Bite or Sting (ED), Anaphylaxis (ED) Additional Instructions: Please use medication as discussed. Please follow-up with family doctor in the next 2 days. Please return to emergency room if the symptoms increase or worsen or for any other concerns. Prescriptions: predniSONE [Deltasone] 20 mg PO DAILY 4 Days #4 tab Is patient prescribed a controlled substance at d/c from ED?: No Referrals: Naveen Mcduffie DO [Primary Care Provider] - 1-2 days Time of Disposition: 17:45
== END 2020-05-15 18:21 | disposition home or self-care (01) ==
LOC: EC 17:23
DX: T63.441A Toxic effect of venom of bees, accidental (unintentional), initial encounter (principal); I10 Essential (primary) hypertension; E03.9 Hypothyroidism, unspecified; M19.90 Unspecified osteoarthritis, unspecified site; E78.5 Hyperlipidemia, unspecified; I25.10 Atherosclerotic heart disease of native coronary artery without angina pectoris; Z79.899 Other long term (current) drug therapy; Z79.890 Hormone replacement therapy; Z79.82 Long term (current) use of aspirin; Z79.01 Long term (current) use of anticoagulants; Z88.8 Allergy status to other drugs, medicaments and biological substances; Z96.653 Presence of artificial knee joint, bilateral; Z86.718 Personal history of other venous thrombosis and embolism; Z85.828 Personal history of other malignant neoplasm of skin
CPT/HCPCS: 99283; 96372; J2930

== ENCOUNTER → 2020-07-24 | Outpatient (CLI) | payer MEDICARE, BC ==
[2020-07-24 18:35] LABS: African American GFR (CKD) 76.3 (60.0-200.0); Albumin 4.1 g/dL (3.80-4.90); Albumin/Globulin Ratio 1.71 (1.60-3.17); Anion Gap 6.9 mmol/L (4.00-12.00); BUN/Creat Ratio 18.75 Ratio (12.00-20.00); Calcium 9.3 mg/dL (8.7-10.3); Carbon Dioxide 29.1 mmol/L (21.6-31.8); Chol/HDL Ratio 2.78; Globulin 2.4 g/dL (1.6-3.3); Non-African American GFR(CKD) 65.8 (60.0-200.0); Potassium 4.5 mmol/L (3.5-5.5); Total Protein 6.5 g/dL (6.2-8.2)
== END | disposition home or self-care (01) ==
LOC: LABWHC1 09:21
PROVIDERS: ATTEND Internal Medicine Interventional Cardiology
DX: E78.2 Mixed hyperlipidemia (principal)
CPT/HCPCS: 36415; 80053; 80061

== ENCOUNTER 2020-09-16 | Emergency (ER) | payer MEDICARE, BC ==
--- NOTE | 2020-09-16 11:58 | ED ---
Skin/Abscess/FB HPI - General Source: patient, family Mode of arrival: ambulatory Limitations: physical limitation <Cammie Velez - Last Filed: 09/18/20 17:11> <TayoprabhuCele Carlton - Last Filed: 09/18/20 22:27> - General Chief complaint: Skin/Abscess/Foreign Body Stated complaint: nose problem/rash Time Seen by Provider: 09/16/20 11:23 - History of Present Illness Initial comments: 89yo presenting for facial rash. pt states her face near nostrils and both sides of nose have been red/peelilng. she states the face feels swollen at time. denies blisters, eye swelling, MRSA hx. She denies experiencing this in the past. pt concerning of infection and presented to ER. Denies lip swelling, oral lesions. pt denies fevers. patient appears well notoxic on arrival in no distress. (Cammie Velez) - Related Data Home Medications Medication Instructions Recorded Confirmed Aspirin 81 mg PO DAILY 08/01/14 06/02/19 Atenolol [Tenormin] 50 mg PO BID 08/01/14 06/02/19 Levothyroxine Sodium [Synthroid] 75 mcg PO DAILY 08/01/14 06/02/19 Losartan [Cozaar] 50 mg PO HS 08/01/14 06/02/19 Atorvastatin [Lipitor] 40 mg PO HS 12/20/16 06/02/19 Apixaban [Eliquis] 2.5 mg PO BID 06/14/17 06/02/19 amLODIPine [Norvasc] 5 mg PO HS 10/02/17 06/02/19 Irbesartan [Avapro] 150 mg PO DAILY 06/02/19 06/02/19 Previous Rx's Medication Instructions Recorded predniSONE [Deltasone] 20 mg PO DAILY 4 Days #4 tab 05/15/20 Cephalexin [Keflex] 500 mg PO Q6HR 7 Days #28 cap 09/16/20 Clotrimazole Cream [Lotrimin Cream] 1 applic TOPICAL BID 14 Days #30 gm 09/16/20 Allergies Allergy/AdvReac Type Severity Reaction Status Date / Time hydroxyzine HCl Allergy Rash/Hives Verified 09/16/20 11:22 [From Vistaril] hydroxyzine pamoate Allergy Rash/Hives Verified 09/16/20 11:22 [facility] Review of Systems ROS Other: All systems not noted in ROS Statement are negative. <Cammie Velez - Last Filed: 09/18/20 17:11> ROS Other: All systems not noted in ROS Statement are negative. <Cele Casiano Carlton - Last Filed: 09/18/20 22:27> ROS Statement: Those systems with pertinent positive or pertinent negative responses have been documented in the HPI. Past Medical History Past Medical History: Atrial Fibrillation, Coronary Artery Disease (CAD), Cancer, Deep Vein Thrombosis (DVT), Eye Disorder, Hyperlipidemia, Hypertension, Osteoarthritis (OA), Pneumonia, Thyroid Disorder Additional Past Medical History / Comment(s): Possible common bile duct stone, DVT in leg (cannot recall laterallity), bilateral eye glaucoma, hypothyroid, skin cancer with removal, sinus issues at times. History of Any Multi-Drug Resistant Organisms: None Reported Past Surgical History: Appendectomy, Coronary Bypass/CABG, Heart Catheterization With Stent, Hernia Repair, Hysterectomy, Joint Replacement, Orthopedic Surgery Additional Past Surgical History / Comment(s): RT KNEE ARTHROSCOPY, MICHAEL KNEE'S REPLACED, thyroid surgery x 2, MAGNUS, EPS, CARDIOVERSION, 2005 CABG TRIPLE VESSEL, STENT X1, SX FOR HIATAL HERNIA, COLONOSCOPY 2011. Past Anesthesia/Blood Transfusion Reactions: No Reported Reaction Date of Last Stent Placement:: 2008 Past Psychological History: No Psychological Hx Reported Smoking Status: Never smoker Past Alcohol Use History: None Reported Past Drug Use History: None Reported - Past Family History Mother Additional Family Medical History / Comment(s): " OF OLD AGE IN HER 90'S" Father Additional Family Medical History / Comment(s): " OF OLD AGE IN HIS 90'S" Sister(s) Additional Family Medical History / Comment(s): HEART CONDITIONS- PTS UNSURE OF WHAT Brother(s) Family Medical History: Cancer Additional Family Medical History / Comment(s): HEART CONDITIONS- PTS UNSURE OF WHAT <Cammie Velez - Last Filed: 09/18/20 17:11> General Exam Limitations: physical limitation <Cammie Velez - Last Filed: 09/18/20 17:11> - General Exam Comments Initial Comments: General: The patient is awake and alert, in no distress, and does not appear acutely ill. Eye: Pupils are equal, round and reactive to light, extra-ocular movements are intact. No nystagmus. There is normal conjunctiva bilaterally. No signs of icterus. Ears, nose, mouth and throat: There are moist mucous membranes and no oral lesions. Neck: The neck is supple, there is no tenderness or JVD. Musculoskeletal: Normal ROM, no tenderness. Strength 5/5. Sensation intact. Pulses equal bilaterally 2+. Neurological: A&O x 3. CN II-XII intact, There are no obvious motor or sensory deficits. Coordination appears grossly intact. Speech is normal. Skin: Skin is warm and dry. Dry crusting erythematous rash on both side of nose and also near nostril base. patient has no vesicular lesions, no drainage, no warmth. Psychiatric: Cooperative, appropriate mood & affect, normal judgment. (Cammie Velez) Course Vital Signs 09/16/20 09/16/20 11:20 12:06 Temperature 98.6 F 98.6 F Pulse Rate 91 91 Respiratory 18 18 Rate Blood Pressure 142/88 142/88 O2 Sat by Pulse 96 96 Oximetry Medical Decision Making <Cammie Velez - Last Filed: 09/18/20 17:11> <Cele Casiano - Last Filed: 09/18/20 22:27> - Medical Decision Making pt initiated on antifungal as that appears most likely diagnosis from exam. discussed case with Dr Casiano who would like oral antibiotics to r/o bacterial cause. pt is to return for worsening symptoms. recommend f/u with dermatology. patietn discharged appearing well, (Cammie Velez) I was available for consultation in the emergency department. The history and physical exam were done by the midlevel provider. I was consulted for this patients care. I reviewed the case with the midlevel provider and based on their presentation of the patient, I agree with the assessment, medical decision making and plan of care as documented. Chart was dictated using [employer] dictation software. Attempts were made to correct any dictation errors however some typographical errors may persist. Patient was seen during a national state of emergency due to the Covid-19 pandemic. Patient did not demonstrate any signs of SJS or TEN. (Cele Casiano) Disposition Is patient prescribed a controlled substance at d/c from ED?: No Time of Disposition: 11:57 <Jesus ManuelcarlosCammie L - Last Filed: 09/18/20 17:11> <Cele Casiano - Last Filed: 09/18/20 22:27> Clinical Impression: Facial dermatitis Disposition: HOME SELF-CARE Condition: Good Instructions (If sedation given, give patient instructions): Dermatitis (ED) Additional Instructions: Please use medication as discussed. Please follow-up with family doctor in the next 2 days, recommend outpatient dermatology follow up Please return to emergency room if the symptoms increase or worsen or for any other concerns. Prescriptions: Cephalexin [Keflex] 500 mg PO Q6HR 7 Days #28 cap Clotrimazole Cream [Lotrimin Cream] 1 applic TOPICAL BID 14 Days #30 gm Referrals: Naveen Mcduffie DO [Primary Care Provider] - 1-2 days Monet Acosta MD [STAFF PHYSICIAN] - 1-2 days Sebastian Acosta MD [STAFF PHYSICIAN] - 1-2 days
== END 2020-09-16 12:07 | disposition home or self-care (01) ==
CPT/HCPCS: 99282

== ENCOUNTER 2021-03-16 13:29 | Emergency (ER) | payer MEDICARE, BC ==
[2021-03-16 13:34] VITALS: RESP 18; TEMP 98.1
--- NOTE | 2021-03-16 13:54 | ED ---
General Adult HPI - General Chief complaint: Fall Stated complaint: fall, shoulder pain Time Seen by Provider: 03/16/21 13:35 Source: patient, RN notes reviewed, old records reviewed Mode of arrival: ambulatory Limitations: physical limitation - History of Present Illness Initial comments: This is an 89-year-old female who presents emergency Department complaining of right arm and shoulder pain. Patient states she fell about a week and half ago and it continues to bother her. Patient states when she lifts her arm above horizontal it hurts more when she does have external rotation it hurts. Patient has not noticed any swelling. Patient is able to move the shoulder just about to all areas that she has before but it does hurt with certain movements. Patient denies any clavicle pain patient is in the wrist or hand pain. Patient denies any other injury. - Related Data Home Medications Medication Instructions Recorded Confirmed Aspirin 81 mg PO DAILY 08/01/14 06/02/19 Atenolol [Tenormin] 50 mg PO BID 08/01/14 06/02/19 Levothyroxine Sodium [Synthroid] 75 mcg PO DAILY 08/01/14 06/02/19 Losartan [Cozaar] 50 mg PO HS 08/01/14 06/02/19 Atorvastatin [Lipitor] 40 mg PO HS 12/20/16 06/02/19 Apixaban [Eliquis] 2.5 mg PO BID 06/14/17 06/02/19 amLODIPine [Norvasc] 5 mg PO HS 10/02/17 06/02/19 Irbesartan [Avapro] 150 mg PO DAILY 06/02/19 06/02/19 Previous Rx's Medication Instructions Recorded predniSONE [Deltasone] 20 mg PO DAILY 4 Days #4 tab 05/15/20 Cephalexin [Keflex] 500 mg PO Q6HR 7 Days #28 cap 09/16/20 Clotrimazole Cream [Lotrimin Cream] 1 applic TOPICAL BID 14 Days #30 gm 09/16/20 Ibuprofen [Motrin] 400 mg PO Q8HR PRN #15 tab 03/16/21 Allergies Allergy/AdvReac Type Severity Reaction Status Date / Time hydroxyzine HCl Allergy Rash/Hives Verified 03/16/21 13:34 [From Vistaril] hydroxyzine pamoate Allergy Rash/Hives Verified 03/16/21 13:34 [From Vistari] Review of Systems ROS Statement: Those systems with pertinent positive or pertinent negative responses have been documented in the HPI. ROS Other: All systems not noted in ROS Statement are negative. Past Medical History Past Medical History: Atrial Fibrillation, Coronary Artery Disease (CAD), Cancer, Deep Vein Thrombosis (DVT), Eye Disorder, Hyperlipidemia, Hypertension, Osteoarthritis (OA), Pneumonia, Thyroid Disorder Additional Past Medical History / Comment(s): Possible common bile duct stone, DVT in leg (cannot recall laterallity), bilateral eye glaucoma, hypothyroid, skin cancer with removal, sinus issues at times. History of Any Multi-Drug Resistant Organisms: None Reported Past Surgical History: Appendectomy, Coronary Bypass/CABG, Heart Catheterization With Stent, Hernia Repair, Hysterectomy, Joint Replacement, Orthopedic Surgery Additional Past Surgical History / Comment(s): RT KNEE ARTHROSCOPY, MICHAEL KNEE'S REPLACED, thyroid surgery x 2, MAGNUS, EPS, CARDIOVERSION, 2005 CABG TRIPLE VESSEL, STENT X1, SX FOR HIATAL HERNIA, COLONOSCOPY 2011. Past Anesthesia/Blood Transfusion Reactions: No Reported Reaction Date of Last Stent Placement:: 2008 Past Psychological History: No Psychological Hx Reported Smoking Status: Never smoker Past Alcohol Use History: None Reported Past Drug Use History: None Reported - Past Family History Mother Additional Family Medical History / Comment(s): " OF OLD AGE IN HER 90'S" Father Additional Family Medical History / Comment(s): " OF OLD AGE IN HIS 90'S" Sister(s) Additional Family Medical History / Comment(s): HEART CONDITIONS- PTS UNSURE OF WHAT Brother(s) Family Medical History: Cancer Additional Family Medical History / Comment(s): HEART CONDITIONS- PTS UNSURE OF WHAT General Exam - General Exam Comments Initial Comments: GENERAL Patient is well-developed and well-nourished. Patient is in mild distress. EYES Patient's pupils are equal and round. Extraocular motion is intact SKIN Unremarkable NEURO The patient is alert and oriented 3 PYSCH Patient has normal interpersonal interactions. MUSCULOSKELETAL Patient has some tenderness in the lateral aspect of the shoulder and has pain with abduction above horizontal. Limitations: physical limitation Course Vital Signs 03/16/21 13:31 Temperature 98.1 F Pulse Rate 93 Respiratory 18 Rate Blood Pressure 181/92 O2 Sat by Pulse 94 L Oximetry Medical Decision Making - Medical Decision Making X-ray of the humerus and shoulder show no acute abnormality. Disposition Clinical Impression: Fall, Rotator cuff (capsule) sprain Disposition: HOME SELF-CARE Condition: Good Instructions (If sedation given, give patient instructions): Fall Prevention for Older Adults (ED) Prescriptions: Ibuprofen [Motrin] 400 mg PO Q8HR PRN #15 tab PRN Reason: Pain Is patient prescribed a controlled substance at d/c from ED?: No Referrals: Naveen Mcduffie DO [Primary Care Provider] - 1-2 days Time of Disposition: 14:33
--- NOTE | 2021-03-16 14:16 | XR ---
EXAMINATION TYPE: XR humerus RT DATE OF EXAM: 03/16/2021 COMPARISON: NONE HISTORY: Pain. TECHNIQUE: 3 views FINDINGS: Elbow joint appears intact. Shoulder joint appears intact. I see no fracture nor dislocatio n. IMPRESSION: Negative right humerus exam.
--- NOTE | 2021-03-16 14:16 | XR ---
EXAMINATION TYPE: XR shoulder complete RT DATE OF EXAM: 03/16/2021 COMPARISON: NONE HISTORY: Pain. Fall. TECHNIQUE: 3 views FINDINGS: There is spurring at the glenohumeral joint. I see no definite fracture nor dislocation. Th ere is mild spurring at the AC joint. There is some osteopenia. IMPRESSION: No acute abnormality of the right shoulder. Osteoarthritis.
[2021-03-16 14:56] VITALS: BP 155/69; PULSE 91
== END 2021-03-16 14:52 | disposition home or self-care (01) ==
LOC: EC 13:29
DX: S43.421A Sprain of right rotator cuff capsule, initial encounter (principal); I10 Essential (primary) hypertension; E78.5 Hyperlipidemia, unspecified; E03.9 Hypothyroidism, unspecified; I25.10 Atherosclerotic heart disease of native coronary artery without angina pectoris; I48.91 Unspecified atrial fibrillation; Z86.718 Personal history of other venous thrombosis and embolism; Z79.01 Long term (current) use of anticoagulants; Z79.1 Long term (current) use of non-steroidal anti-inflammatories (NSAID); Z79.52 Long term (current) use of systemic steroids; Z79.82 Long term (current) use of aspirin; Z79.890 Hormone replacement therapy; Z95.1 Presence of aortocoronary bypass graft; W18.30XA Fall on same level, unspecified, initial encounter
CPT/HCPCS: 99284

== ENCOUNTER → 2021-08-22 | Outpatient (CLI) | payer MEDICARE, BC ==
[2021-08-23 01:08] LABS: ALT 12 U/L (8-44); AST 22 U/L (13-35); African American GFR (CKD) 78.6 (60.0-200.0); Albumin 4.1 g/dL (3.8-4.9); Albumin/Globulin Ratio 1.62 (1.60-3.17); Alkaline Phosphatase 147 U/L (41-126); BUN/Creat Ratio 13.79 Ratio (12.00-20.00); Blood Urea Nitrogen 10.7 mg/dL (9.0-27.0); Calcium 9.4 mg/dL (8.7-10.3); Carbon Dioxide 24.1 mmol/L (20.0-27.5); Chloride 105 mmol/L (96-109); Chol/HDL Ratio 2.96 Ratio; Globulin 2.6 g/dL (1.6-3.3); Glucose 90 mg/dL (70-110); LDL Cholesterol,Calculated 122.3 mg/dL (0.0-131.0); Non-African American GFR(CKD) 67.8 (60.0-200.0); Potassium 4.3 mmol/L (3.5-5.5); Sodium 144 mmol/L (135-145); Total Protein 6.7 g/dL (6.2-8.2); VLDL Calculation 15.36 mg/dL (5.00-40.00)
== END | disposition home or self-care (01) ==
LOC: LABWHC1 10:40
PROVIDERS: ATTEND Nurse Practitioner Adult Health
DX: I10 Essential (primary) hypertension (principal); E78.2 Mixed hyperlipidemia; E03.9 Hypothyroidism, unspecified
CPT/HCPCS: 36415; 80053; 80061; 84439; 84443

== ENCOUNTER 2021-08-23 10:35 | Inpatient (IN) | payer MEDICARE, BC ==
--- NOTE | 2021-08-23 11:39 | ED ---
General Adult HPI - General Chief complaint: Extremity Injury, Lower Stated complaint: lt leg pain Time Seen by Provider: 08/23/21 11:02 Source: patient, family, RN notes reviewed, old records reviewed Mode of arrival: wheelchair Limitations: no limitations - History of Present Illness Initial comments: Patient is a pleasant 89-year-old female sent to the emergency Department with left leg pain. Patient states pain is chronic however worse today. Family was unaware of chronic pain and just realized that this morning. Pain was somewhat severe earlier and intensified with trying to stand up. Patient states discomfort is essentially resolved at this time. No chest pain or dyspnea. Patient is unaware of any history of atrial fibrillation. No recent trauma. Patient does have history of DVT. Patient is on anticoagulation. Eliquis. - Related Data Home Medications Medication Instructions Recorded Confirmed Atenolol [Tenormin] 50 mg PO BID 08/01/14 08/23/21 Losartan [Cozaar] 50 mg PO DAILY 08/01/14 08/23/21 Atorvastatin [Lipitor] 40 mg PO DAILY 12/20/16 08/23/21 Apixaban [Eliquis] 2.5 mg PO BID 06/14/17 08/23/21 amLODIPine [Norvasc] 5 mg PO DAILY 10/02/17 08/23/21 Allergies Allergy/AdvReac Type Severity Reaction Status Date / Time hydroxyzine HCl Allergy Rash/Hives Verified 08/23/21 10:42 [From Vistaril] hydroxyzine pamoate Allergy Rash/Hives Verified 08/23/21 10:42 [From Vistaril] Review of Systems ROS Statement: Those systems with pertinent positive or pertinent negative responses have been documented in the HPI. ROS Other: All systems not noted in ROS Statement are negative. Constitutional: Denies: fever Eyes: Denies: eye pain ENT: Denies: ear pain Respiratory: Denies: cough, dyspnea Cardiovascular: Denies: chest pain Endocrine: Denies: fatigue Gastrointestinal: Denies: abdominal pain, vomiting Musculoskeletal: Reports: as per HPI Skin: Denies: rash Neurological: Denies: weakness Past Medical History Past Medical History: Atrial Fibrillation, Coronary Artery Disease (CAD), Cancer, Deep Vein Thrombosis (DVT), Eye Disorder, Hyperlipidemia, Hypertension, Osteoarthritis (OA), Pneumonia, Thyroid Disorder Additional Past Medical History / Comment(s): Possible common bile duct stone, DVT in leg (cannot recall laterallity), bilateral eye glaucoma, hypothyroid, skin cancer with removal, sinus issues at times. History of Any Multi-Drug Resistant Organisms: None Reported Past Surgical History: Appendectomy, Coronary Bypass/CABG, Heart Catheterization With Stent, Hernia Repair, Hysterectomy, Joint Replacement, Orthopedic Surgery Additional Past Surgical History / Comment(s): RT KNEE ARTHROSCOPY, MICHAEL KNEE'S REPLACED, thyroid surgery x 2, MAGNUS, EPS, CARDIOVERSION, 2005 CABG TRIPLE VESSEL, STENT X1, SX FOR HIATAL HERNIA, COLONOSCOPY 2011. Past Anesthesia/Blood Transfusion Reactions: No Reported Reaction Date of Last Stent Placement:: 2008 Past Psychological History: No Psychological Hx Reported Smoking Status: Never smoker Past Alcohol Use History: None Reported Past Drug Use History: None Reported - Past Family History Mother Additional Family Medical History / Comment(s): " OF OLD AGE IN HER 90'S" Father Additional Family Medical History / Comment(s): " OF OLD AGE IN HIS 90'S" Sister(s) Additional Family Medical History / Comment(s): HEART CONDITIONS- PTS UNSURE OF WHAT Brother(s) Family Medical History: Cancer Additional Family Medical History / Comment(s): HEART CONDITIONS- PTS UNSURE OF WHAT General Exam Limitations: no limitations General appearance: alert, in no apparent distress Head exam: Present: normocephalic Eye exam: Present: normal appearance Neck exam: Present: normal inspection Respiratory exam: Present: normal lung sounds bilaterally Cardiovascular Exam: Present: tachycardia, irregular rhythm Expanded Peripheral pulses: 2+: Radial (R), Radial (L), Dorsalis Pedis (R), Dorsalis Pedis (L) GI/Abdominal exam: Present: soft. Absent: tenderness Extremities exam: Present: normal inspection, full ROM, normal capillary refill, other (Left leg without color change. Full range of motion without tenderness. No Tenderness. No swelling. No color change. Distally the extremity is neurovascular intact. Cap refill less than 2 seconds.). Absent: tenderness, calf tenderness Neurological exam: Present: alert Psychiatric exam: Present: normal affect, normal mood Skin exam: Present: normal color. Absent: rash, erythema Course Vital Signs 08/23/21 08/23/21 10:37 12:12 Temperature 98.9 F Pulse Rate 158 H 131 H Respiratory 18 18 Rate Blood Pressure 182/108 153/95 O2 Sat by Pulse 96 98 Oximetry EKG Findings - EKG Comments: EKG Findings:: a fibrillation with RVR, rate 136. QRS 76. QT 332. QTC 499. Right axis. Septal Q waves. No acute ST change. Borderline inferior T wave inversion. Medical Decision Making - Medical Decision Making Patient reevaluated and resting comfortably in bed. Heart rate remains around 120, atrial fibrillation. Cardizem drip will be increased. Case was discussed with Dr. Larson, who will admit for hospital call with cardiology evaluation. - Lab Data Result diagrams: 08/23/21 11:51 08/23/21 11:51 Lab Results 08/23/21 08/23/21 08/23/21 Range/Units 11:51 11:51 11:51 WBC 5.5 (3.8-10.6) k/uL RBC 5.16 (3.80-5.40) m/uL Hgb 14.5 (11.4-16.0) gm/dL Hct 44.7 (34.0-46.0) % MCV 86.7 (80.0-100.0) fL MCH 28.0 (25.0-35.0) pg MCHC 32.3 (31.0-37.0) g/dL RDW 15.2 (11.5-15.5) % Plt Count 184 (150-450) k/uL MPV 9.3 Neutrophils % 70 % Lymphocytes % 23 % Monocytes % 4 % Eosinophils % 0 % Basophils % 0 % Neutrophils # 3.9 (1.3-7.7) k/uL Lymphocytes # 1.3 (1.0-4.8) k/uL Monocytes # 0.2 (0-1.0) k/uL Eosinophils # 0.0 (0-0.7) k/uL Basophils # 0.0 (0-0.2) k/uL PT 10.4 (9.0-12.0) sec INR 1.0 (<1.2) APTT 23.6 (22.0-30.0) sec Sodium 139 (137-145) mmol/L Potassium 4.9 (3.5-5.1) mmol/L Chloride 107 (98-107) mmol/L Carbon Dioxide 22 (22-30) mmol/L Anion Gap 10 mmol/L BUN 16 (7-17) mg/dL Creatinine 0.69 (0.52-1.04) mg/dL Est GFR (CKD-EPI)AfAm 89 (>60 ml/min/1.73 sqM) Est GFR (CKD-EPI)NonAf 78 (>60 ml/min/1.73 sqM) Glucose 96 (74-99) mg/dL Calcium 9.0 (8.4-10.2) mg/dL Magnesium 2.1 (1.6-2.3) mg/dL Total Bilirubin 1.4 H (0.2-1.3) mg/dL AST 38 H (14-36) U/L ALT 15 (4-34) U/L Alkaline Phosphatase 135 H (38-126) U/L Troponin I (0.000-0.034) ng/mL Total Protein 7.5 (6.3-8.2) g/dL Albumin 4.1 (3.5-5.0) g/dL TSH 4.020 (0.465-4.680) mIU/L 08/23/21 Range/Units 11:51 WBC (3.8-10.6) k/uL RBC (3.80-5.40) m/uL Hgb (11.4-16.0) gm/dL Hct (34.0-46.0) % MCV (80.0-100.0) fL MCH (25.0-35.0) pg MCHC (31.0-37.0) g/dL RDW (11.5-15.5) % Plt Count (150-450) k/uL MPV Neutrophils % % Lymphocytes % % Monocytes % % Eosinophils % % Basophils % % Neutrophils # (1.3-7.7) k/uL Lymphocytes # (1.0-4.8) k/uL Monocytes # (0-1.0) k/uL Eosinophils # (0-0.7) k/uL Basophils # (0-0.2) k/uL PT (9.0-12.0) sec INR (<1.2) APTT (22.0-30.0) sec Sodium (137-145) mmol/L Potassium (3.5-5.1) mmol/L Chloride (98-107) mmol/L Carbon Dioxide (22-30) mmol/L Anion Gap mmol/L BUN (7-17) mg/dL Creatinine (0.52-1.04) mg/dL Est GFR (CKD-EPI)AfAm (>60 ml/min/1.73 sqM) Est GFR (CKD-EPI)NonAf (>60 ml/min/1.73 sqM) Glucose (74-99) mg/dL Calcium (8.4-10.2) mg/dL Magnesium (1.6-2.3) mg/dL Total Bilirubin (0.2-1.3) mg/dL AST (14-36) U/L ALT (4-34) U/L Alkaline Phosphatase (38-126) U/L Troponin I 0.014 (0.000-0.034) ng/mL Total Protein (6.3-8.2) g/dL Albumin (3.5-5.0) g/dL TSH (0.465-4.680) mIU/L - Radiology Data Radiology results: report reviewed (Ultrasound reported by refrigeration service technician as negative.), image reviewed (Chest x-ray shows cardiomegaly. Probable small left effusion. Lumbar spine shows spondylitic changes. Minimal wedging L1 and L2. No definite acute fracture. Knee x-ray reviewed) Critical Care Time Critical Care Time: Yes Total Critical Care Time: 31 Disposition Clinical Impression: Atrial fibrillation with RVR, Leg pain Disposition: ADMITTED IP TO THIS HOSP Is patient prescribed a controlled substance at d/c from ED?: No Referrals: None,Stated [Primary Care Provider] - 1-2 days Decision Time: 15:08
[2021-08-23] MEDS: DILTIAZEM 125 MG in SODIUM CHLORIDE 0.9% 100 ML IV SCH (12:02)
[2021-08-23 12:10] LABS: Basophils % (A) 0 %; Eosinophils % (A) 0 %; HCT 44.7 % (34.0-46.0); HGB 14.5 gm/dL (11.4-16.0); Lymphocytes # (A) 1.3 k/uL (1.0-4.8); Lymphocytes % (A) 23 %; MCHC 32.3 g/dL (31.0-37.0); MCV 86.7 fL (80.0-100.0); Mean Platelet Volume 9.3; Monocytes # (A) 0.2 k/uL (0-1.0); Monocytes % (A) 4 %; Neutrophils # (A) 3.9 k/uL (1.3-7.7); Neutrophils % (A) 70 %; Platelet Count 184 k/uL (150-450); RBC 5.16 m/uL (3.80-5.40); RDW 15.2 % (11.5-15.5); WBC 5.5 k/uL (3.8-10.6)
[2021-08-23 12:29] LABS: Total Bilirubin 1.4 mg/dL (0.2-1.3)
[2021-08-23 12:35] LABS: Albumin 4.1 g/dL (3.5-5.0); Magnesium 2.1 mg/dL (1.6-2.3); Potassium 4.9 mmol/L (3.5-5.1); Total Protein 7.5 g/dL (6.3-8.2)
[2021-08-23 13:09] LABS: Partial Thromboplastin Time 23.6 sec (22.0-30.0); Prothrombin Time 10.4 sec (9.0-12.0)
--- NOTE | 2021-08-23 14:31 | XR ---
EXAMINATION TYPE: XR lumbar spine 2 or 3V DATE OF EXAM: 08/23/2021 COMPARISON: NONE HISTORY: Weakness and pain TECHNIQUE: 3 views FINDINGS: The lumbar vertebra have normal alignment. Posterior elements are intact. There is some mil d disc space narrowing at L4-5 and L5-S1 with spurring. There is no significant compression fracture. Abdominal aorta is atheromatous. There is 15% wedging of L1 and L2. IMPRESSION: Spondylotic changes. Minimal wedging at L1 and L2. Note definite acute fracture seen.
--- NOTE | 2021-08-23 14:34 | XR ---
EXAMINATION TYPE: XR chest 2V DATE OF EXAM: 08/23/2021 COMPARISON: 06/02/2019 HISTORY: Weakness TECHNIQUE: 2 views FINDINGS: Heart is enlarged. There are sternal wires. There are chest leads. There is slight blunting left costophrenic angle. There is no gross heart failure. IMPRESSION: Moderate cardiomegaly. No obvious heart failure. There is probably a small left pleural e ffusion. Pleural fluid improved compared to old exam.
--- NOTE | 2021-08-23 14:44 | XR ---
EXAMINATION TYPE: XR knee complete LT DATE OF EXAM: 08/23/2021 COMPARISON: 01/23/2020 HISTORY: Pain TECHNIQUE: 3 views FINDINGS: There is left knee prosthesis. Components appear in anatomic position. I see no fracture. T here are multiple vascular surgical clips. IMPRESSION: No fracture seen. No change compared to old exam.
[2021-08-23] MEDS ORDERED: NALOXONE 0.4 MG/ML 1 ML VIAL IV PRN (15:08)
[2021-08-23] MEDS ORDERED: SODIUM CHLORIDE 0.9% 1,000 ML IV SCH (15:15)
--- NOTE | 2021-08-23 15:46 | P.HPIM ---
History of Present Illness Chief Complaint: Left leg pain This is a very pleasant 89-year-old female with history of atrial fibrillation on Fran history of osteoporosis and osteoarthritis who came to emergency department for ablation of left leg pain. Pain is in the left knee and is mostly broke up with ambulation and weight wearing. Patient has both knees replaced. Patient did not notice any trauma or swelling in the knees or radiation of pain or any swelling in the legs. She does not have any back pain or hip pain no pain in her ankle or feet. Patient came to emergency department for this purposes x-ray showed knee prosthesis in good position no fractures dislocations. Plan was to discharge patient home however it was noted the patient to be tachycardic and 150s. EKG showed A. fib with RVR with a rate in 150s blood pressure was stable. Patient was asymptomatic without any chest pain nausea vomiting shortness of breath or any changes. Patient denies any diarrhea or fevers. Patient denies any reasons to be dehydrated no recent changes in her medications. Started on Cardizem drip and given IV fluids and her heart rate is now better control in the range [id number]. The patient states that she is feeling normal at baseline does not report any particular discomfort. Review of Systems All systems: negative Past Medical History Past Medical History: Atrial Fibrillation, Coronary Artery Disease (CAD), Cancer, Deep Vein Thrombosis (DVT), Eye Disorder, Hyperlipidemia, Hypertension, Osteoarthritis (OA), Pneumonia, Thyroid Disorder Additional Past Medical History / Comment(s): Possible common bile duct stone, DVT in leg (cannot recall laterallity), bilateral eye glaucoma, hypothyroid, skin cancer with removal, sinus issues at times. History of Any Multi-Drug Resistant Organisms: None Reported Past Surgical History: Appendectomy, Coronary Bypass/CABG, Heart Catheterization With Stent, Hernia Repair, Hysterectomy, Joint Replacement, Orthopedic Surgery Additional Past Surgical History / Comment(s): RT KNEE ARTHROSCOPY, MICHAEL KNEE'S REPLACED, thyroid surgery x 2, MAGNUS, EPS, CARDIOVERSION, 2005 CABG TRIPLE VESSEL, STENT X1, SX FOR HIATAL HERNIA, COLONOSCOPY 2011. Past Anesthesia/Blood Transfusion Reactions: No Reported Reaction Date of Last Stent Placement:: 2008 Past Psychological History: No Psychological Hx Reported Smoking Status: Never smoker Past Alcohol Use History: None Reported Past Drug Use History: None Reported - Past Family History Mother Additional Family Medical History / Comment(s): " OF OLD AGE IN HER 90'S" Father Additional Family Medical History / Comment(s): " OF OLD AGE IN HIS 90'S" Sister(s) Additional Family Medical History / Comment(s): HEART CONDITIONS- PTS UNSURE OF WHAT Brother(s) Family Medical History: Cancer Additional Family Medical History / Comment(s): HEART CONDITIONS- PTS UNSURE OF WHAT Medications and Allergies Home Medications Medication Instructions Recorded Confirmed Type Atenolol [Tenormin] 50 mg PO BID 08/01/14 08/23/21 History Losartan [Cozaar] 50 mg PO DAILY 08/01/14 08/23/21 History Atorvastatin [Lipitor] 40 mg PO DAILY 12/20/16 08/23/21 History Apixaban [Eliquis] 2.5 mg PO BID 06/14/17 08/23/21 History amLODIPine [Norvasc] 5 mg PO DAILY 10/02/17 08/23/21 History Allergies Allergy/AdvReac Type Severity Reaction Status Date / Time hydroxyzine HCl Allergy Rash/Hives Verified 08/23/21 10:42 [From Vistaril] hydroxyzine pamoate Allergy Rash/Hives Verified 08/23/21 10:42 [From Vistaril] Physical Exam Vitals: Vital Signs Temp Pulse Resp BP Pulse Ox 08/23/21 15:12 105 H 18 169/97 96 08/23/21 12:12 131 H 18 153/95 98 08/23/21 10:37 98.9 F 158 H 18 182/108 96 Intake and Output 08/23/21 08/23/21 08/23/21 06:59 14:59 22:59 Intake Total 15.75 Balance 15.75 Intake: Intake, IV Titration 15.75 Amount Diltiazem 125 mg In 15.75 Sodium Chloride 0.9% 100 ml @ 7.5 MG/HR 7.5 mls/hr IV .[id number] [facility] Rx#: [id number] Other: Weight 55.792 kg Awake alert and 3 negative. No distress Head and neck: Normocephalic anicteric sclerae moist mucous membranes no neck masses no JVD no thyromegaly Lungs: Clear to auscultation bilateral Cardiovascular tachycardic irregularly irregular S1-S2 Abdomen: Bowel sounds present soft nontender nondistended no flank tenderness no epigastric or right upper quadrant tenderness Extremities: No peripheral edema warm well perfused. Results pedis pulses are faint but present in both feet and symmetrical. Examination of the left knee showing well-healed scar from previous surgery otherwise no swelling no focal tenderness and range of motion is preserved in no instability noted. Possible skeletal: Examination of the left hip range of motion is preserved some tenderness over the lateral aspect which per patient is chronic no restrictions in mobility, examination of the spine no tenderness along the spinal processes or paraspinal musculature Neurological awake alert oriented 3 no current deficits no motor deficit Skin no rashes Results CBC & Chem 7: 08/23/21 11:51 08/23/21 11:51 Labs: Abnormal Lab Results - Last 24 Hours (Table) 08/23/21 Range/Units 11:51 Total Bilirubin 1.4 H (0.2-1.3) mg/dL AST 38 H (14-36) U/L Alkaline Phosphatase 135 H (38-126) U/L Assessment and Plan Plan: #Paroxysmal A. fib with RVR Currently on Cardizem drip Restart home Eliquis Restart home atenolol Consult patient's potato bucker TSH check #Left leg pain Gross examination does not show any obvious pathology X-ray without any fractures or trauma Venous Doppler pending Will order arterial Doppler as well in the setting of A. fib #Elevated total bilirubin and alkaline phosphatase No GI symptoms Liver enzymes are normal Vein ultrasound right upper quadrant, rule out infiltrative processes or masses #Hypertension Restart home atenolol Hold losartan and amlodipine for now since patient is a Cardizem drip and then we will restart her blood pressure stable #Hyperlipidemia On atorvastatin Patient is a full code Admitted under observation Patient care was discussed with her daughter who is a surrogate decision maker Home medications reviewed
--- NOTE | 2021-08-23 16:53 | US ---
EXAMINATION TYPE: US venous doppler duplex LE LT DATE OF EXAM: 08/23/2021 2:53 PM COMPARISON: NONE CLINICAL HISTORY: PAIN. SIDE PERFORMED: Left TECHNIQUE: The lower extremity deep venous system is examined utilizing real time linear array sonog roshan with graded compression, doppler sonography and color-flow sonography. VESSELS IMAGED: Common Femoral Vein Deep Femoral Vein Greater Saphenous Vein * Femoral Vein Popliteal Vein Small Saphenous Vein * Proximal Calf Veins (* superficial vessels) Left Leg: Negative for DVT IMPRESSION: No sign of deep vein thrombosis in the left leg.
--- NOTE | 2021-08-23 18:13 | CT ---
EXAMINATION TYPE: CT brain wo con DATE OF EXAM: 08/23/2021 COMPARISON: 01/23/2020 HISTORY: weakness CT DLP: 1060.4 mGycm Automated exposure control for dose reduction was used. There is cerebral atrophy. There is no mass effect nor midline shift. There is no sign of intracrania l hemorrhage. Calvarium is intact skull base is intact. There is normal aeration of the mastoid sinus es. IMPRESSION: Cerebral atrophy. No acute intracranial abnormality.
[2021-08-23] MEDS: atenoloL 50 MG TAB PO SCH (20:48)
[2021-08-23] MEDS ORDERED: ACETAMINOPHEN TAB 325 MG TAB PO STA (21:00)
[2021-08-23] MEDS ORDERED: APIXABAN 2.5 MG TABLET PO SCH ×2 (21:00)
[2021-08-24] MEDS ORDERED: HYDROcodone/APAP 5-325MG 1 EACH TAB PO STA (01:27)
[2021-08-24] MEDS ORDERED: HEPARIN SODIUM 1,000 UN/ML (10ML VL) IV PRN (07:11)
[2021-08-24 07:47] LABS: Basophils % (A) 1 %; Eosinophils # (A) 0.1 k/uL (0-0.7); Eosinophils % (A) 2 %; HCT 41.6 % (34.0-46.0); HGB 13.1 gm/dL (11.4-16.0); Hypochromasia Slight; Lymphocytes # (A) 1.7 k/uL (1.0-4.8); Lymphocytes % (A) 31 %; MCH 27.9 pg (25.0-35.0); MCHC 31.4 g/dL (31.0-37.0); MCV 88.7 fL (80.0-100.0); Mean Platelet Volume 7.8; Monocytes # (A) 0.3 k/uL (0-1.0); Monocytes % (A) 6 %; Neutrophils # (A) 3.2 k/uL (1.3-7.7); Neutrophils % (A) 59 %; Platelet Count 156 k/uL (150-450); RBC 4.69 m/uL (3.80-5.40); RDW 15.2 % (11.5-15.5); WBC 5.4 k/uL (3.8-10.6)
[2021-08-24 07:58] LABS: Partial Thromboplastin Time 25.3 sec (22.0-30.0)
--- NOTE | 2021-08-24 08:04 | US ---
EXAMINATION TYPE: US abdomen limited DATE OF EXAM: 08/24/2021 COMPARISON: CT chest 03/28/2015, US 10/03/2017 CLINICAL HISTORY: hepatobiliary sys, Elevated liver enzymes,. EXAM MEASUREMENTS: Liver Length: 9.7 cm Gallbladder Wall: 0.3 cm CBD: 1.8 cm Right Kidney: 9.0 x 3.6 x 3.9 cm Pancreas: partially obscured by bowel gas, duct measures 3mm Liver: wnl Gallbladder: mild dependant sludge, hydropic Evidence for sonographic Maxwell's sign: no CBD: grossly dilated Right Kidney: cyst measuring 2.7 x 2.4 x 2.4 cm IMPRESSION: 1. Distended gallbladder, biliary sludge and dilated common bile duct, similar findings in on [address] Ul [address] chest. Consider MRCP/ERCP for further evaluation of the biliary system. 2. Renal cyst
--- NOTE | 2021-08-24 08:12 | P.CRDCN ---
History of Present Illness Consult date: 08/24/21 Chief complaint: Left leg pain History of present illness: The patient is an 89-year-old female patient who requested to see for further evaluation and management of atrial fibrillation. She is an 89-year-old with a past medical history significant for permanent atrial fibrillation was maintaining on A 2.5 mg by mouth twice a day as well as history of coronary artery disease with prior coronary artery that was grafting where in 2006 she received LAU to LAD and SVG to RCA as well as is. She to OM as well as she underwent stenting of the SVG to RCA in 2008. She does have also hypertension and dyslipidemia. The patient somewhat is a poor historian and she has severe difficulty hearing. She apparently presented to the emergency department with left leg pain according to her started a few days ago. She describes the pain mainly below the knee on the left side. She reports no symptoms of chest pain or chest discomfort nor shortness of breath nor dizziness or lightheadedness and no feeling of heart racing or fluttering. The patient is known to have permanent atrial fibrillation and on examination she seems to be in A. fib with controlled heart rate. On examination also the patient seems to have slightly cooler foot on the left side than the right side without any pedal pulses by examination or by Doppler. The left leg pain in the setting of the physical examination is concerning for arterial embolization giving the status of the permanent atrial fibrillation. An arterial duplex studies in process to be done. Meanwhile I'm going to stop DL was 2.5 mg by mouth twice a day and start the patient on heparin IV. Also I'm going to obtain an echocardiogram was Doppler. We'll continue following up with the patient. We'll continue the current dose of beta colby since her heart rate has been controlled on it. Past Medical History Past Medical History: Atrial Fibrillation, Coronary Artery Disease (CAD), Cancer, Deep Vein Thrombosis (DVT), Eye Disorder, Hyperlipidemia, Hypertension, Osteoarthritis (OA), Pneumonia, Thyroid Disorder Additional Past Medical History / Comment(s): Possible common bile duct stone, DVT in leg (cannot recall laterallity), bilateral eye glaucoma, hypothyroid, skin cancer with removal, sinus issues at times. History of Any Multi-Drug Resistant Organisms: None Reported Past Surgical History: Appendectomy, Coronary Bypass/CABG, Heart Catheterization With Stent, Hernia Repair, Hysterectomy, Joint Replacement, Orthopedic Surgery Additional Past Surgical History / Comment(s): RT KNEE ARTHROSCOPY, MICHAEL KNEE'S REPLACED, thyroid surgery x 2, MAGNUS, EPS, CARDIOVERSION, 2006 CABG TRIPLE VESSEL, STENT X1, SX FOR HIATAL HERNIA, COLONOSCOPY 2011. Past Anesthesia/Blood Transfusion Reactions: No Reported Reaction Date of Last Stent Placement:: 2008 Past Psychological History: No Psychological Hx Reported Additional Psychological History / Comment(s): PT LIVES WITH HER . PT IS INDEPENDANT STILL DRIVES. NO HOME CARE SERVICES RECIEVED. NO MEDICAL EQUIPMENT. LIVES IN 2 STORY HOME BUT STAYS ON FIRST FLOOR. HAS 1 PORCH STEP. Smoking Status: Never smoker Past Alcohol Use History: None Reported Past Drug Use History: None Reported - Past Family History Mother Additional Family Medical History / Comment(s): " OF OLD AGE IN HER 90'S" Father Additional Family Medical History / Comment(s): " OF OLD AGE IN HIS 90'S" Sister(s) Additional Family Medical History / Comment(s): HEART CONDITIONS- PTS UNSURE OF WHAT Brother(s) Family Medical History: Cancer Additional Family Medical History / Comment(s): HEART CONDITIONS- PTS UNSURE OF WHAT Medications and Allergies Home Medications Medication Instructions Recorded Confirmed Type Atenolol [Tenormin] 50 mg PO BID 08/01/14 08/23/21 History Losartan [Cozaar] 50 mg PO DAILY 08/01/14 08/23/21 History Atorvastatin [Lipitor] 40 mg PO DAILY 12/20/16 08/23/21 History Apixaban [Eliquis] 2.5 mg PO BID 06/14/17 08/23/21 History amLODIPine [Norvasc] 5 mg PO DAILY 10/02/17 08/23/21 History Allergies Allergy/AdvReac Type Severity Reaction Status Date / Time hydroxyzine HCl Allergy Rash/Hives Verified 08/23/21 10:42 [From Vistaril] hydroxyzine pamoate Allergy Rash/Hives Verified 08/23/21 10:42 [From Vistaril] Physical Exam Vitals: Vital Signs Temp Pulse Pulse Resp BP BP Pulse Ox 08/24/21 04:00 98.1 F 71 18 127/58 95 08/24/21 01:53 74 18 08/24/21 00:00 97.5 F L 74 18 130/69 95 08/23/21 20:00 98.1 F 81 18 145/70 93 L 08/23/21 16:00 99 F 96 18 139/67 97 08/23/21 15:12 105 H 18 169/97 96 08/23/21 12:12 131 H 18 153/95 98 08/23/21 10:37 98.9 F 158 H 18 182/108 96 Intake and Output 08/23/21 08/24/21 08/24/21 22:59 06:59 14:59 Intake Total 339.75 540 21.792 Balance 339.75 540 21.792 Intake: IV 10 Invasive Line 1 10 Intake, IV Titration 69.75 21.792 Amount Diltiazem 125 mg In 69.75 21.792 Sodium Chloride 0.9% 100 ml @ 2.5 MG/HR 2.5 mls/hr IV .Q24H [facility] Rx#: [id number] Oral 260 540 Other: Voiding Method Toilet Toilet # Voids 1 1 Weight 55.792 kg 51.3 kg - Constitutional General appearance: no acute distress - Respiratory Respiratory: bilateral: diminished - Cardiovascular Rhythm: irregularly irregular Heart sounds: normal: S1, S2 Results 08/24/21 07:36 08/23/21 11:51 Cardiac Enzymes 08/23/21 08/23/21 Range/Units 11:51 11:51 AST 38 H (14-36) U/L Troponin I 0.014 (0.000-0.034) ng/mL Coagulation 08/23/21 08/24/21 Range/Units 11:51 07:36 PT 10.4 11.0 (9.0-12.0) sec APTT 23.6 25.3 (22.0-30.0) sec CBC 08/23/21 08/24/21 Range/Units 11:51 07:36 WBC 5.5 5.4 (3.8-10.6) k/uL RBC 5.16 4.69 (3.80-5.40) m/uL Hgb 14.5 13.1 (11.4-16.0) gm/dL Hct 44.7 41.6 (34.0-46.0) % Plt Count 184 156 (150-450) k/uL Comprehensive Metabolic Panel 08/23/21 Range/Units 11:51 Sodium 139 (137-145) mmol/L Potassium 4.9 (3.5-5.1) mmol/L Chloride 107 (98-107) mmol/L Carbon Dioxide 22 (22-30) mmol/L BUN 16 (7-17) mg/dL Creatinine 0.69 (0.52-1.04) mg/dL Glucose 96 (74-99) mg/dL Calcium 9.0 (8.4-10.2) mg/dL AST 38 H (14-36) U/L ALT 15 (4-34) U/L Alkaline Phosphatase 135 H (38-126) U/L Total Protein 7.5 (6.3-8.2) g/dL Albumin 4.1 (3.5-5.0) g/dL Current Medications Generic Name Dose Route Start Last Admin Trade Name Freq PRN Reason Stop Dose Admin Atenolol 50 mg 08/23/21 21:00 08/23/21 20:48 Atenolol 50 Mg Tab PO 50 mg BID [facility] Administration Atorvastatin Calcium 40 mg 08/24/21 09:00 Atorvastatin 40 Mg Tab PO DAILY [facility] Heparin Sodium (Porcine) 0 unit 08/24/21 07:11 Heparin Sodium 1,000 Un/Ml (10ml Vl) IV PER PROTOCOL PRN Low PTT Protocol Diltiazem HCl 125 mg/ Sodium 125 mls @ 2.5 mls/hr 08/23/21 11:45 08/24/21 07:06 Chloride IV 0 mg/hr .Q24H [facility] 0 mls/hr Infusion 2.5 MG/HR Heparin Sodium/Sodium Chloride 250 mls @ 9.234 mls/hr 08/24/21 07:15 25,000 unit/ Sodium Chloride IV .Q24H [facility] Protocol 18 UNITS/KG/HR Naloxone HCl 0.2 mg 08/23/21 15:08 Naloxone 0.4 Mg/Ml 1 Ml Vial IV Q2M PRN Opioid Reversal Intake and Output 08/23/21 08/24/21 08/24/21 22:59 06:59 14:59 Intake Total 339.75 540 21.792 Balance 339.75 540 21.792 Intake: IV 10 Invasive Line 1 10 Intake, IV Titration 69.75 21.792 Amount Diltiazem 125 mg In 69.75 21.792 Sodium Chloride 0.9% 100 ml @ 2.5 MG/HR 2.5 mls/hr IV .Q24H [facility] Rx#: [id number] Oral 260 540 Other: Voiding Method Toilet Toilet # Voids 1 1 Weight 55.792 kg 51.3 kg 08/24/21 07:36 08/23/21 11:51 Assessment and Plan Assessment: Assessment #1 left leg discomfort concerning for arterial embolization in the setting of permanent atrial fibrillation #2 permanent atrial fibrillation was controlled heart rate #3 coronary artery disease as described above #4 multiple comorbid conditions Plan #1 DCL a course and start the patient on heparin for now #2 follow-up on the left lower extremity arterial duplex study #3 obtain an echocardiogram was Doppler #4 follow-up with the patient #5 further recommendation to follow
[2021-08-24] MEDS: atenoloL 50 MG TAB PO SCH ×2 (08:26→20:44)
[2021-08-24] MEDS: ATORVASTATIN 40 MG TAB PO SCH (08:26)
--- NOTE | 2021-08-24 09:14 | P.PN ---
Subjective Principal diagnosis: A. fib with RVR and left leg pain 89-year-old female, admitted for evaluation of left leg pain and paroxysmal A. fib. X-ray of the left hip without acute pathology. Venous Doppler negative for DVT. Arterial Doppler results pending today. Patient herself does not have any particular complaints this morning. No leg pain no shortness of breath no palpitations or chest pain. Her rate is controlled with Cardizem. Objective - Vital Signs Vital signs: Vital Signs Temp 98.1 F 08/24/21 08:00 Pulse 65 08/24/21 08:00 Resp 18 08/24/21 08:00 BP 155/76 08/24/21 08:00 Pulse Ox 96 08/24/21 08:00 Intake & Output 08/23/21 08/24/21 08/24/21 18:59 06:59 18:59 Intake Total 275.75 604 21.792 Balance 275.75 604 21.792 Weight 55.792 kg 51.3 kg Intake: IV 10 Invasive Line 1 10 Intake, IV Titration 15.75 54 21.792 Amount Diltiazem 125 mg In 15.75 54 21.792 Sodium Chloride 0.9% 100 ml @ 2.5 MG/HR 2.5 mls/hr IV .Q24H [facility] Rx#: [id number] Oral 260 540 Other: Voiding Method Toilet # Voids 1 1 - Exam Awake alert and oriented 3 Head and neck : No facial symmetry anicteric sclera nonicteric masses no JVD Lungs clear to auscultation Cardiovascular irregular rhythm, S1-S2 Abdomen soft nontender nondistended no flank tenderness Extremities: Warm and perfused. Pulses are diminished bilaterally but symmetrically, no cyanosis, sensitivity to light touch preserved - Labs CBC & Chem 7: 08/24/21 07:36 08/23/21 11:51 Labs: Abnormal Lab Results - Last 24 Hours (Table) 08/23/21 Range/Units 11:51 Total Bilirubin 1.4 H (0.2-1.3) mg/dL AST 38 H (14-36) U/L Alkaline Phosphatase 135 H (38-126) U/L Assessment and Plan Plan: #Paroxysmal A. fib with RVR Currently on Cardizem drip Started on heparin drip by cardiology On gallop was at home Restart home atenolol Cardiology follow #Left leg pain Gross examination does not show any obvious pathology Ruling out arterial embolization, arterial Doppler results pending X-ray without any fractures or trauma Venous Doppler no DVT Remains on heparin drip #Elevated total bilirubin and alkaline phosphatase No GI symptoms Liver enzymes are normal ultrasound right upper quadrant, rule out infiltrative processes or masses #Hypertension Restart home atenolol Hold losartan and amlodipine for now since patient is a Cardizem drip and then we will restart her blood pressure stable #Hyperlipidemia On atorvastatin Patient is a full code Admitted under observation Patient care was discussed with her daughter who is a surrogate decision maker Home medications reviewed
[2021-08-24] MEDS: DILTIAZEM 125 MG in SODIUM CHLORIDE 0.9% 100 ML IV SCH (09:39)
[2021-08-24] MEDS: HEPARIN SOD,PORK IN 0.45% NACL 25,000 UNIT in 0.45% NACL 1 250ML.BAG IV SCH (10:56)
[2021-08-24] MEDS ORDERED: risperiDONE 0.25 MG TAB PO PRN (17:44)
[2021-08-24] MEDS ORDERED: HALOPERIDOL LACTATE 5 MG/ML 1 ML VIAL IM STA (22:31)
[2021-08-25 05:56] LABS: Basophils % (A) 0 %; Eosinophils % (A) 0 %; HCT 44.8 % (34.0-46.0); HGB 14.3 gm/dL (11.4-16.0); Hypochromasia Slight; Lymphocytes % (A) 13 %; MCH 27.9 pg (25.0-35.0); MCHC 31.9 g/dL (31.0-37.0); MCV 87.5 fL (80.0-100.0); Mean Platelet Volume 8.4; Monocytes # (A) 0.2 k/uL (0-1.0); Monocytes % (A) 3 %; Neutrophils # (A) 6.2 k/uL (1.3-7.7); Neutrophils % (A) 83 %; Platelet Count 174 k/uL (150-450); RBC 5.12 m/uL (3.80-5.40); RDW 14.8 % (11.5-15.5); WBC 7.4 k/uL (3.8-10.6)
[2021-08-25 06:36] LABS: ALT 16 U/L (4-34); AST 29 U/L (14-36); African American GFR (CKD) >90 (>60 ml/min/1.73 sqM); Alkaline Phosphatase 144 U/L (38-126); Anion Gap 12 mmol/L; Blood Urea Nitrogen 14 mg/dL (7-17); Carbon Dioxide 21 mmol/L (22-30); Chloride 104 mmol/L (98-107); Glucose 122 mg/dL (74-99); Non-African American GFR(CKD) 80 (>60 ml/min/1.73 sqM); Potassium 3.7 mmol/L (3.5-5.1); Sodium 137 mmol/L (137-145)
[2021-08-25] MEDS: ATORVASTATIN 40 MG TAB PO SCH (08:30)
[2021-08-25] MEDS: atenoloL 50 MG TAB PO SCH (08:30)
[2021-08-25] MEDS: HEPARIN SOD,PORK IN 0.45% NACL 25,000 UNIT in 0.45% NACL 1 250ML.BAG IV SCH (08:48)
--- NOTE | 2021-08-25 12:00 | ECHOF ---
Referral Reason:A. fib MEASUREMENTS -------- HEIGHT: 129.5 cm WEIGHT: 50.8 kg BP: 171/83 RVIDd: 2.7 cm (< 3.3) IVSd: 1.1 cm (0.6 - 1.1) LVIDd: 2.8 cm (3.9 - 5.3) LVPWd: 1.4 cm (0.6 - 1.1) IVSs: 1.7 cm LVIDs: 1.5 cm LVPWs: 1.7 cm LAESV Index (A-L): 49.85 ml/m Ao Diam: 3.3 cm (2.0 - 3.7) AV Cusp: 1.8 cm (1.5 - 2.6) LA Diam: 3.9 cm (2.7 - 3.8) MV EXCURSION: 12.148 mm (> 18.000) MV EF SLOPE: 81 mm/s (70 - 150) EPSS: 1.4 cm MV E Darell: 0.85 m/s MV DecT: 191 ms MV A Darell: 0.34 m/s MV E/A Ratio: 2.53 RAP: 5.00 mmHg RVSP: 15.40 mmHg FINDINGS -------- Atrial fibrillation. This was a technically good study. The left ventricular size is normal. There is mild concentric left ventricular hypertrophy. Overa ll left ventricular systolic function is normal with, an EF between 55 - 60 %. Left ventricular jenelle limg pressure cannot be estimated due to Atrial fibrillation. The right ventricle is normal in size. LA is severely dilated >40 ml/m2 The right atrial size is normal. The aortic valve is trileaflet and appears structurally normal. The mitral valve is normal. There is trace mitral regurgitation. The tricuspid valve appears structurally normal. Trace tricuspid regurgitation present. Right karine tricular systolic pressure is normal at < 35 mmHg. There is no pulmonic regurgitation present. The aortic root size is normal. IVC Not well visulized. There is no pericardial effusion. CONCLUSIONS -------- 1. The left ventricular size is normal. 2. There is mild concentric left ventricular hypertrophy. 3. Overall left ventricular systolic function is normal with, an EF between 55 - 60 %. 4. Left ventricular fillimg pressure cannot be estimated due to Atrial fibrillation. 5. LA is severely dilated >40 ml/m2 6. There is trace mitral regurgitation. 7. Trace tricuspid regurgitation present. 8. There is no pericardial effusion. SEO ENGINEER: Carolina Anderson RDCS
--- NOTE | 2021-08-25 13:49 | P.GSCN ---
History of Present Illness Consult date: 08/25/21 Reason for Consult: Left leg pain Requesting physician: Chinyere Simon History of present illness: This is an 89-year-old white female was the history of dementia, atrial fibrillation on Eliquis, coronary artery disease with previous stenting and CABG, hypertension, and hyper lipidemia. Apparently the patient came to the emergency department according to her at that she had complaints of left knee pain. He was concerned as patient had a previous history of a left lower extremity deep vein thrombosis for which he states she had gone down to [place] for treatment 3-4 years ago. States he was unaware she had previous leg pain and had not been complaining of any pain. He states she is ambulatory and walks independently without any use of walker or cane at home. Upon evaluation the patient has a sitter at the bedside and nursing is stating that she is very confused. She has a soft restraint on over her abdomen. Serial Doppler was ordered to bilateral lower extremities. LAILA on the right 1.14, left 0.30. At this time the patient is denying any pain in her left lower extremity. She is currently on a heparin drip. Review of Systems ROS unobtainable: due to mental status Past Medical History Past Medical History: Atrial Fibrillation, Coronary Artery Disease (CAD), Cancer, Deep Vein Thrombosis (DVT), Eye Disorder, Hyperlipidemia, Hypertension, Osteoarthritis (OA), Pneumonia, Thyroid Disorder Additional Past Medical History / Comment(s): Possible common bile duct stone, DVT in leg (cannot recall laterallity), bilateral eye glaucoma, hypothyroid, skin cancer with removal, sinus issues at times. History of Any Multi-Drug Resistant Organisms: None Reported Past Surgical History: Appendectomy, Coronary Bypass/CABG, Heart Catheterization With Stent, Hernia Repair, Hysterectomy, Joint Replacement, Orthopedic Surgery Additional Past Surgical History / Comment(s): RT KNEE ARTHROSCOPY, MICHAEL KNEE'S REPLACED, thyroid surgery x 2, MAGNUS, EPS, CARDIOVERSION, 2005 CABG TRIPLE VESSEL, STENT X1, SX FOR HIATAL HERNIA, COLONOSCOPY 2011. Past Anesthesia/Blood Transfusion Reactions: No Reported Reaction Date of Last Stent Placement:: 2008 Past Psychological History: No Psychological Hx Reported Additional Psychological History / Comment(s): PT LIVES WITH HER . PT IS INDEPENDANT STILL DRIVES. NO HOME CARE SERVICES RECIEVED. NO MEDICAL EQUIPMENT. LIVES IN 2 STORY HOME BUT STAYS ON FIRST FLOOR. HAS 1 PORCH STEP. Smoking Status: Never smoker Past Alcohol Use History: None Reported Past Drug Use History: None Reported - Past Family History Mother Additional Family Medical History / Comment(s): " OF OLD AGE IN HER 90'S" Father Additional Family Medical History / Comment(s): " OF OLD AGE IN HIS 90'S" Sister(s) Additional Family Medical History / Comment(s): HEART CONDITIONS- PTS UNSURE OF WHAT Brother(s) Family Medical History: Cancer Additional Family Medical History / Comment(s): HEART CONDITIONS- PTS UNSURE OF WHAT Medications and Allergies Home Medications Medication Instructions Recorded Confirmed Type Atenolol [Tenormin] 50 mg PO BID 08/01/14 08/23/21 History Losartan [Cozaar] 50 mg PO DAILY 08/01/14 08/23/21 History Atorvastatin [Lipitor] 40 mg PO DAILY 12/20/16 08/23/21 History Apixaban [Eliquis] 2.5 mg PO BID 06/14/17 08/23/21 History amLODIPine [Norvasc] 5 mg PO DAILY 10/02/17 08/23/21 History Allergies Allergy/AdvReac Type Severity Reaction Status Date / Time hydroxyzine HCl Allergy Rash/Hives Verified 08/23/21 10:42 [From Vistaril] hydroxyzine pamoate Allergy Rash/Hives Verified 08/23/21 10:42 [From Vistaril] Surgical - Exam Vital Signs Temp Pulse Resp BP Pulse Ox 98.9 F 158 H 18 182/108 96 08/23/21 10:37 08/23/21 10:37 08/23/21 10:37 08/23/21 10:37 08/23/21 10:37 General appearance: The patient is alert, pleasantly confused, appears in no acute distress. HET: Head is normocephalic and atraumatic. Pupils are equal and reactive. Oropharynx is clear without lesions. Neck: Supple without lymphadenopathy. Trachea midline. Heart: S1 S2. Irregular rate and rhythm. Lungs: Clear to auscultation. Abdomen: Soft, nontender, nondistended. Extremities: Normal skin color and turgor. No cyanosis, rash, ulceration, clubbing, or edema. Bilateral palpable femoral pulses. Right lower extremity with palpable dorsalis pedis and posterior tibialis pulses, warm to the touch with good capillary refill. Left lower extremity nonpalpable DP or PT pulses, foot is slightly cool to the touch. She has good range of motion. Denies any pain with palpation. She has a positive biphasic popliteal Doppler signal, posterior tibialis and dorsalis pedis with monophasic Doppler signal. Neurological: Patient is pleasantly confused. Results - Labs 08/25/21 05:02 08/25/21 05:02 Abnormal Lab Results - Last 24 Hours (Table) 08/24/21 08/25/21 08/25/21 Range/Units 21:45 05:02 05:02 APTT 67.4 H 76.6 H (22.0-30.0) sec Carbon Dioxide 21 L (22-30) mmol/L Glucose 122 H (74-99) mg/dL Alkaline Phosphatase 144 H (38-126) U/L Diabetes panel 08/25/21 Range/Units 05:02 Sodium 137 (137-145) mmol/L Potassium 3.7 (3.5-5.1) mmol/L Chloride 104 (98-107) mmol/L Carbon Dioxide 21 L (22-30) mmol/L BUN 14 (7-17) mg/dL Creatinine 0.62 (0.52-1.04) mg/dL Glucose 122 H (74-99) mg/dL Calcium 9.0 (8.4-10.2) mg/dL AST 29 (14-36) U/L ALT 16 (4-34) U/L Alkaline Phosphatase 144 H (38-126) U/L Total Protein 7.0 (6.3-8.2) g/dL Albumin 4.0 (3.5-5.0) g/dL Calcium panel 08/25/21 Range/Units 05:02 Calcium 9.0 (8.4-10.2) mg/dL Albumin 4.0 (3.5-5.0) g/dL Pituitary panel 08/25/21 Range/Units 05:02 Sodium 137 (137-145) mmol/L Potassium 3.7 (3.5-5.1) mmol/L Chloride 104 (98-107) mmol/L Carbon Dioxide 21 L (22-30) mmol/L BUN 14 (7-17) mg/dL Creatinine 0.62 (0.52-1.04) mg/dL Glucose 122 H (74-99) mg/dL Calcium 9.0 (8.4-10.2) mg/dL Adrenal panel 08/25/21 Range/Units 05:02 Sodium 137 (137-145) mmol/L Potassium 3.7 (3.5-5.1) mmol/L Chloride 104 (98-107) mmol/L Carbon Dioxide 21 L (22-30) mmol/L BUN 14 (7-17) mg/dL Creatinine 0.62 (0.52-1.04) mg/dL Glucose 122 H (74-99) mg/dL Calcium 9.0 (8.4-10.2) mg/dL Total Bilirubin 1.0 (0.2-1.3) mg/dL AST 29 (14-36) U/L ALT 16 (4-34) U/L Alkaline Phosphatase 144 H (38-126) U/L Total Protein 7.0 (6.3-8.2) g/dL Albumin 4.0 (3.5-5.0) g/dL Assessment and Plan Assessment: 1. Left leg pain 2. Abnormal arterial Doppler study. LAILA right lower extremity 1.14, left lower extremity 0.30. At this time patient is not complaining of any pain. Acute versus chronic peripheral arterial disease 3. Atrial fibrillation with RVR, patient on heparin drip currently Plan: 1. Continue IV heparin drip for now 2. Lower extremity arterial ultrasound reviewed with Dr. Serrano 3. Consider possibility of angiogram for further evaluation, possibility of revascularization for dictated. This will further be discussed with the patient's . 4. Further recommendations forthcoming per vascular surgeon Thank you for this consultation, we will continue to follow. The impression and plan of care has been dictated as directed. Dr. Xie I performed a history and examination of this patient, discussed the same with the dictator. I agree with the dictator's note ,documented as a scribe. Any additional findings or plans will be noted.
--- NOTE | 2021-08-25 14:57 | P.PN ---
Subjective The patient is an 89-year-old female with a past medical history significant for permanent atrial fibrillation (on Eliquis outpatient), coronary artery disease with prior coronary artery that was grafting where in 2006 she received LAU to LAD and SVG to RCA, PIC to OM as well as she underwent stenting of the SVG to RCA in 2008, hypertension and dyslipidemia. She follows with Dr. Gaytan. We are consulted for atrial fibrillation with RVR. She presents to the emergency department with left leg pain according to her started a few days ago. Venous Doppler of the left leg, negative for DVT. Arterial doppler is pending read. Vascular is consulted. Patient seen and examined at bedside, she appears more confused this morning. She denies further pain in her left lower extremity. She continues to be in atrial fibrillation with better controlled rates. She is currently maintained on IV heparin, IV Cardizem 5 mg/hr , metoprolol tartrate 25 mg twice a day, atorvastatin 40 mg daily. Echocardiogram revealed EF 5560%, LA is severely dilated, no significant wall motion abnormalities. GENERAL: Confused. No acute distress NECK: Supple without JVD or thyromegaly. LUNGS: Breath sounds clear to auscultation bilaterally. Respiration equal and un labored. No wheezes, rales or rhonchi. HEART: Irregular rate and rhythm without murmurs, rubs or gallops. S1 and S2 heard. EXTREMITIES: Normal range of motion, no edema. ASSESSMENT Left leg pain Chronic persistent atrial fibrillation with RVR, on Eliquis outpatient, currently on IV heparin Coronary artery disease with prior coronary artery that was grafting where in 2006 she received LAU to LAD and SVG to RCA, PIC to OM as well as she underwent stenting of the SVG to RCA in 2008 Hypertension Dyslipidemia PLAN -Stop Cardizem drip -Metoprolol tartrate 25mg BID -Continue IV heparin drip for now -Vascular consulted, appreciate recommendations -Restart patient's losartan -Further recommendations based on clinical course Nurse Practitioner note has been reviewed, I agree with a documented findings and plan of care. Patient was seen and examined. Objective - Vital Signs Vital signs: Vital Signs Temp 97.9 F 08/25/21 12:00 Pulse 85 08/25/21 12:00 Resp 18 08/25/21 12:00 BP 150/77 08/25/21 12:00 Pulse Ox 93 L 08/25/21 12:00 Intake & Output 08/24/21 08/25/21 08/25/21 18:59 06:59 18:59 Intake Total 196.888 158.354 42.322 Balance 196.888 158.354 42.322 Weight 50.9 kg Intake: IV 10 Invasive Line 3 10 Intake, IV Titration 76.888 148.354 42.322 Amount Diltiazem 125 mg In 21.792 2.542 Sodium Chloride 0.9% 100 ml @ 2.5 MG/HR 2.5 mls/hr IV .Q24H [facility] Rx#: [id number] Heparin Sod,Pork in 0.45% 55.096 145.812 42.322 NaCl 25,000 unit In 0.45 % NaCl 1 250ml.bag @ 18 UNITS/KG/HR 9.234 mls/hr IV .Q24H [facility] Rx#: [id number] Oral 120 Other: Voiding Method Toilet Toilet # Voids 0 - Labs CBC & Chem 7: 08/25/21 05:02 08/25/21 05:02 Labs: Abnormal Lab Results - Last 24 Hours (Table) 08/24/21 08/25/21 08/25/21 Range/Units 21:45 05:02 05:02 APTT 67.4 H 76.6 H (22.0-30.0) sec Carbon Dioxide 21 L (22-30) mmol/L Glucose 122 H (74-99) mg/dL Alkaline Phosphatase 144 H (38-126) U/L 08/25/21 Range/Units 12:52 APTT 52.0 H (22.0-30.0) sec Carbon Dioxide (22-30) mmol/L Glucose (74-99) mg/dL Alkaline Phosphatase (38-126) U/L
[2021-08-25] MEDS: DILTIAZEM 125 MG in SODIUM CHLORIDE 0.9% 100 ML IV SCH (15:02)
--- NOTE | 2021-08-25 16:32 | P.PN ---
Subjective Progress Note Date: 08/25/21 ([facility] charting seen at 0945) Principal diagnosis: leg pain Patient is an 89-year-old female with a history of A. fib, coronary artery disease, hypertension, and dyslipidemia who presented to the emergency department with complaints of left leg pain in the ER she underwent an extensive evaluation. She was found have A. fib with rapid ventricular response she was started on a Cardizem drip and a heparin drip. She was admitted for further monitoring. She was seen by cardiology there was concern for possible arterial embolization setting of permanent A. fib. Arterial Dopplers were ordered. Patient was acutely confused overnight on 08/24 and required 1 dose of Haldol. She has a sitter at bedside. Imaging: Lumbar spine x-ray minimal wedging at L1-L2, no acute fracture Chest x-ray: Moderate cardiomegaly Knee X-ray left: No acute fracture Left lower extremity Doppler: No signs of DVT Brain CT: No cerebral atrophy Abdominal ultrasound: Distended gallbladder with biliary sludge not different from 2018 Echocardiogram: Ejection fraction 55-60%, LVH, severely dilated left atria Patient seen and examined at bedside. She notes 2020, she struggles as to what type of building we are in. She adamantly denies any left leg pain at this time but complains of neck pain and states she has a bad neck. Strength any chest pain, shortness of breath, nausea, vomiting. General: non toxic, no distress, appears at stated age Derm: warm, dry Head: atraumatic, normocephalic, symmetric Eyes: EOMI, no lid lag, anicteric sclera Mouth: no lip lesion, mucus membranes moist Cardiovascular: S1-S2 regular, no murmur, absent posterior tibial pulse bilateral, Lungs: Decreased breath sounds bilateral, no rhonchi, no rales , no accessory muscle use Abdominal: soft, nontender to palpation, no guarding, no appreciable organomegaly Ext: no gross muscle atrophy, no edema, no contractures Neuro: CN II-XI grossly intact, no focal neuro deficits, left ankle and calf ap pear to be smaller in size than right ankle and calf, unable to palpate dorsalis pedis pulses on either leg but appear warm and dry, capillary refill less than 2 seconds Psych: Alert, oriented, appropriate affect Permanent A. fib with rapid ventricular response -Suboptimal control on Cardizem drip -Stop atenolol and start metoprolol -Cardiology recommendations -Continue with heparin drip -Telemetry control Left leg pain -Radiologic examination is normal -Venous Doppler no DVT -Continue heparin drip -Consult vascular surgery -PT/OT Elevated total bilirubin -Patient with unchanged dilation of the gallbladder duct since 2018 given advanced age and confusion with not proceed with further evaluation as this is unchanged Hypertension -Controlled -Follow blood pressures with recent medication changes -Losartan and amlodipine on hold Dyslipidemia -Atorvastatin DVT prophylaxis: Heparin gtt Discussed with: Patient, nursing Anticipated discharge: in 2-[address]: home A total of 45 minutes was spent on the care of this complex patient more than 50% of the time was spent in counseling and care coordination. Objective - Vital Signs Vital signs: Vital Signs Temp 97.9 F 08/25/21 12:00 Pulse 85 08/25/21 12:00 Resp 18 08/25/21 12:00 BP 150/77 08/25/21 12:00 Pulse Ox 93 L 08/25/21 12:00 Intake & Output 08/24/21 08/25/21 08/25/21 18:59 06:59 18:59 Intake Total 196.888 158.354 73.238 Output Total 0 Balance 196.888 158.354 73.238 Weight 50.9 kg Intake: IV 10 Invasive Line 3 10 Intake, IV Titration 76.888 148.354 73.238 Amount Diltiazem 125 mg In 21.792 2.542 30.916 Sodium Chloride 0.9% 100 ml @ 2.5 MG/HR 2.5 mls/hr IV .Q24H ROSSY Rx#: [id number] Heparin Sod,Pork in 0.45% 55.096 145.812 42.322 NaCl 25,000 unit In 0.45 % NaCl 1 250ml.bag @ 18 UNITS/KG/HR 9.234 mls/hr IV .Q24H ROSSY Rx#: [id number] Oral 120 Output: Urine 0 Other: Voiding Method Toilet Toilet # Voids 0 - Labs CBC & Chem 7: 08/25/21 05:02 08/25/21 05:02 Labs: Abnormal Lab Results - Last 24 Hours (Table) 08/24/21 08/25/21 08/25/21 Range/Units 21:45 05:02 05:02 APTT 67.4 H 76.6 H (22.0-30.0) sec Carbon Dioxide 21 L (22-30) mmol/L Glucose 122 H (74-99) mg/dL Alkaline Phosphatase 144 H (38-126) U/L 08/25/21 08/25/21 Range/Units 12:52 15:02 APTT 52.0 H 53.6 H (22.0-30.0) sec Carbon Dioxide (22-30) mmol/L Glucose (74-99) mg/dL Alkaline Phosphatase (38-126) U/L
[2021-08-25] MEDS: LOSARTAN 50 MG TAB PO SCH (17:01)
[2021-08-25] MEDS ORDERED: MELATONIN 5 MG TABLET PO ONE (20:52)
[2021-08-25] MEDS: METOPROLOL TARTRATE 25 MG TAB PO SCH (20:58)
[2021-08-26 06:27] LABS: HCT 41.6 % (34.0-46.0); HGB 13.6 gm/dL (11.4-16.0); MCH 28.3 pg (25.0-35.0); MCHC 32.7 g/dL (31.0-37.0); MCV 86.5 fL (80.0-100.0); Mean Platelet Volume 8.2; Platelet Count 162 k/uL (150-450); RBC 4.81 m/uL (3.80-5.40); RDW 14.8 % (11.5-15.5); WBC 7.6 k/uL (3.8-10.6)
[2021-08-26 06:59] LABS: African American GFR (CKD) >90 (>60 ml/min/1.73 sqM); Anion Gap 4 mmol/L; Blood Urea Nitrogen 14 mg/dL (7-17); Calcium 8.8 mg/dL (8.4-10.2); Carbon Dioxide 27 mmol/L (22-30); Chloride 107 mmol/L (98-107); Glucose 111 mg/dL (74-99); Non-African American GFR(CKD) 79 (>60 ml/min/1.73 sqM); Potassium 3.4 mmol/L (3.5-5.1); Sodium 138 mmol/L (137-145)
[2021-08-26] MEDS ORDERED: Potassium Replacement Protocol 1 EACH MISC MISCELLANE PRN (08:05)
[2021-08-26] MEDS: METOPROLOL TARTRATE 25 MG TAB PO SCH (09:23)
[2021-08-26] MEDS: ATORVASTATIN 40 MG TAB PO SCH (09:23)
[2021-08-26] MEDS: LOSARTAN 50 MG TAB PO SCH (09:23)
[2021-08-26] MEDS: POTASSIUM CHLORIDE ER 20 MEQ TAB.ER PO SCH ×2 (09:24→18:00)
--- NOTE | 2021-08-26 11:57 | P.PN ---
Subjective The patient is an 89-year-old female with a past medical history significant for permanent atrial fibrillation (on Eliquis outpatient), coronary artery disease with prior coronary artery that was grafting where in 2006 she received LAU to LAD and SVG to RCA, PIC to OM as well as she underwent stenting of the SVG to RCA in 2008, hypertension and dyslipidemia. She follows with Dr. Gaytan. We are consulted for atrial fibrillation with RVR. She presents to the emergency department with left leg pain according to her started a few days ago. Venous Doppler of the left leg, negative for DVT. Arterial doppler is pending read. Vascular is consulted. Patient seen and examined at bedside, she is pleasantly confused. She denies further pain in her left lower extremity. She continues to be in atrial fibrillation with better controlled rates. She is currently maintained on IV heparin, metoprolol tartrate 25 mg twice a day, atorvastatin 40 mg daily. Echocardiogram revealed EF 5560%, LA is severely dilated, no significant wall motion abnormalities. Labs, sodium 139, potassium 3.4, BUN 14, serum creatinine 0.6, WBC 7.6, hemoglobin 13.6, platelets 162. GENERAL: Confused. No acute distress NECK: Supple without JVD or thyromegaly. LUNGS: Breath sounds clear to auscultation bilaterally. Respiration equal and unlabored. No wheezes, rales or rhonchi. HEART: Irregular rate and rhythm without murmurs, rubs or gallops. S1 and S2 heard. EXTREMITIES: Normal range of motion, no edema. Bilateral lower extremity with 2+ pulses. ASSESSMENT Left leg pain Chronic persistent atrial fibrillation with RVR, on Eliquis outpatient, currently on IV heparin Coronary artery disease with prior coronary artery that was grafting where in 2006 she received LAU to LAD and SVG to RCA, PIC to OM as well as she underwent stenting of the SVG to RCA in 2008 Hypertension Dyslipidemia PLAN -Continue Metoprolol tartrate 25mg BID, losartan, and statin -Continue IV heparin drip for now -Vascular consulted, appreciate recommendations -Further recommendations based on clinical course Nurse Practitioner note has been reviewed, I agree with a documented findings and plan of care. Patient was seen and examined. Objective - Vital Signs Vital signs: Vital Signs Temp 97.9 F 08/26/21 08:00 Pulse 110 H 08/26/21 08:00 Resp 17 08/26/21 08:00 BP 171/88 08/26/21 08:00 Pulse Ox 95 08/26/21 08:00 Intake & Output 08/25/21 08/26/21 08/26/21 18:59 06:59 18:59 Intake Total 73.238 162.518 Output Total 0 Balance 73.238 162.518 Weight 50 kg Intake: Intake, IV Titration 73.238 162.518 Amount Diltiazem 125 mg In 30.916 Sodium Chloride 0.9% 100 ml @ 5 MG/HR 5 mls/hr IV .Q24H ROSSY Rx#:[id number] Heparin Sod,Pork in 0.45% 42.322 162.518 NaCl 25,000 unit In 0.45 % NaCl 1 250ml.bag @ 18 UNITS/KG/HR 9.234 mls/hr IV .Q24H ROSSY Rx#: [id number] Output: Urine 0 Other: Voiding Method Toilet Toilet # Voids 1 - Labs CBC & Chem 7: 08/26/21 05:45 08/26/21 05:45 Labs: Abnormal Lab Results - Last 24 Hours (Table) 08/25/21 08/25/21 08/26/21 Range/Units 12:52 15:02 05:45 APTT 52.0 H 53.6 H 60.7 H (22.0-30.0) sec Potassium (3.5-5.1) mmol/L Glucose (74-99) mg/dL 08/26/21 Range/Units 05:45 APTT (22.0-30.0) sec Potassium 3.4 L (3.5-5.1) mmol/L Glucose 111 H (74-99) mg/dL
--- NOTE | 2021-08-26 12:25 | P.PN ---
Subjective Progress Note Date: 08/26/21 Patient seen and examined lying in bed. She is denying any pain to her bilateral lower extremities. She continues to be pleasantly confused and has soft restraint on. Objective - Vital Signs Vital signs: Vital Signs Temp 98.1 F 08/26/21 03:45 Pulse 101 H 08/26/21 03:45 Resp 17 08/26/21 03:45 BP 160/85 08/26/21 03:45 Pulse Ox 93 L 08/26/21 03:45 Intake & Output 08/25/21 08/26/21 08/26/21 18:59 06:59 18:59 Intake Total 73.238 162.518 Output Total 0 Balance 73.238 162.518 Weight 50 kg Intake: Intake, IV Titration 73.238 162.518 Amount Diltiazem 125 mg In 30.916 Sodium Chloride 0.9% 100 ml @ 5 MG/HR 5 mls/hr IV .Q24H ROSSY Rx#:[id number] Heparin Sod,Pork in 0.45% 42.322 162.518 NaCl 25,000 unit In 0.45 % NaCl 1 250ml.bag @ 18 UNITS/KG/HR 9.234 mls/hr IV .Q24H ROSSY Rx#: [id number] Output: Urine 0 Other: Voiding Method Toilet Toilet # Voids 1 - Exam General appearance: The patient is alert, pleasantly confused, appears in no acute distress. HET: Head is normocephalic and atraumatic. Pupils are equal and reactive. Oropharynx is clear without lesions. Neck: Supple without lymphadenopathy. Trachea midline. Heart: S1 S2. Irregular rate and rhythm. Lungs: Clear to auscultation. Abdomen: Soft, nontender, nondistended. Extremities: Normal skin color and turgor. No cyanosis, rash, ulceration, clubbing, or edema. Bilateral palpable femoral pulses. Right lower extremity with palpable dorsalis pedis and posterior tibialis pulses, warm to the touch with good capillary refill. Left lower extremity nonpalpable DP or PT pulses, foot is slightly cool to the touch. She has good range of motion. Denies any pain with palpation. She has a positive biphasic popliteal Doppler signal, posterior tibialis and dorsalis pedis with monophasic Doppler signal. Neurological: Patient is pleasantly confused. - Labs CBC & Chem 7: 08/26/21 05:45 08/26/21 05:45 Labs: Abnormal Lab Results - Last 24 Hours (Table) 08/25/21 08/25/21 08/26/21 Range/Units 12:52 15:02 05:45 APTT 52.0 H 53.6 H 60.7 H (22.0-30.0) sec Potassium (3.5-5.1) mmol/L Glucose (74-99) mg/dL 08/26/21 Range/Units 05:45 APTT (22.0-30.0) sec Potassium 3.4 L (3.5-5.1) mmol/L Glucose 111 H (74-99) mg/dL Assessment and Plan Assessment: 1. Left leg pain 2. Abnormal arterial Doppler study. LAILA right lower extremity 1.14, left lower extremity 0.30. At this time patient is not complaining of any pain. Acute versus chronic ischemia 3. Atrial fibrillation with RVR, patient on heparin drip currently Plan: 1. Continue IV heparin drip for now 2. Lower extremity arterial ultrasound ordered 3. Consider possibility of angiogram for further evaluation, possibility of re vascularization for dictated. This will further be discussed with the patient's . 4. Further recommendations forthcoming per vascular surgeon Thank you for this consultation, we will continue to follow. The impression and plan of care has been dictated as directed. Dr. Aquino I performed a history and examination of this patient, discussed the same with the dictator. I agree with the dictator's note ,documented as a scribe. Any additional findings or plans will be noted.
[2021-08-26] MEDS ORDERED: HEPARIN SODIUM 1,000 UN/ML (10ML VL) IV PRN (13:10)
[2021-08-26] MEDS ORDERED: HEPARIN SOD,PORK IN 0.45% NACL 25,000 UNIT in 0.45% NACL 1 250ML.BAG IV SCH (13:15)
--- NOTE | 2021-08-26 13:48 | P.PN ---
<Evin Morgan - Last Filed: 08/26/21 12:29> Subjective Progress Note Date: 08/26/21 Principal diagnosis: Left leg pain Hospital course: Patient is an 89-year-old female with a history of permanent A. fib, coronary artery disease, hypertension, and dyslipidemia who presented to the emergency department on 08/23/21 with complaints of left leg pain. During evaluation in the emergency department patient found to be tachycardic and EKG was completed revealing A. fib RVR with a ventricular rate of 136 bpm. Patient was started on Cardizem infusion along with anticoagulation with heparin and admitted under our services with consultation to cardiology. During hospitalization patient has had intermittent episodes of increased confusion requiring sitter to be placed at bedside. Imaging: Lumbar spine x-ray minimal wedging at L1-L2, no acute fracture Chest x-ray: Moderate cardiomegaly Knee X-ray left: No acute fracture Left lower extremity Doppler: No signs of DVT Brain CT: No cerebral atrophy Abdominal ultrasound: Distended gallbladder with biliary sludge not different from 2018 Echocardiogram: Ejection fraction 55-60%, LVH, severely dilated left atria Arterial Doppler study was reported as abnormal stating LAILA right lower extremity 1.14, left lower extremity 0.30, acute versus chronic ischemia. Physical examination: Patient seen and examined at bedside. Patient is alert to person and confused to place, time, and situation this morning. Patient unaware of where she is but states that she wants to go back home with her . She denies having any pain or complaints at this time, patient previously complaining of neck pain but after removing pillow reports pain has improved. She denies any chest pain, shortness of breath, or experiencing any numbness/tingling/weakness in her extremities. Called to talk with and is not 12:40 PM, no answer at this time. Spoke with pt's son, Romeo and discussed pt's confusion and potential safe discharge plan. Pt does live at home with her and their son lives next door with other son and [id number] close by. Romeo reports pt has strong support system and would never be left alone. Physical therapy working with patient reporting patient requiring moderate assist with standing and ambulation secondary to poor balance, decreased strength, decreased and parents, poor safety awareness, impulsiveness, and poor cognition. Patient requires moderate assistance with mobility and balance. Anterior Doppler study was reported as abnormal and vascular surgery reports they plan on discussing further with patient's and may consider possible arteriogram. General: non toxic, no distress, appears at stated age Derm: warm, dry Head: atraumatic, normocephalic, symmetric Eyes: EOMI, no lid lag, anicteric sclera Mouth: no lip lesion, mucus membranes moist Cardiovascular: Irregularly irregular rhythm and tachycardic rate, no murmur, absent posterior tibial pulse bilateral, Lungs: Respirations even, regular, and unlabored on room air. Lungs clear to auscultation bilaterally. No rhonchi, no rales , no accessory muscle use Abdominal: soft, nontender to palpation, no guarding, no appreciable organomegaly Ext: no gross muscle atrophy, no edema, no contractures Neuro: CN II-XI grossly intact, no focal neuro deficits, left ankle and calf appear to be smaller in size than right ankle and calf, unable to palpate dorsalis pedis pulses on either leg but appear warm and dry, capillary refill less than 2 seconds Psych: Alert, oriented, appropriate affect Assessment and plan of care: Permanent A. fib with rapid ventricular response -Suboptimal control with Cardizem drip and atenolol, both were discontinued and patient was started on metoprolol 25 mg twice a day and ventricular rate remained tachycardic 100 to 120s bpm. Metoprolol increased to 50 mg twice a day. -Cardiology following -Continue with heparin drip -Telemetry control Left leg pain -Radiologic examination is normal -Venous Doppler no DVT -Arterial Doppler study was reported as abnormal stating LAILA right lower extremity 1.14, left lower extremity 0.30, acute versus chronic ischemia. -Continue heparin drip -Vascular surgery following, reports plans to further discuss with and may consider arteriogram. -PT/OT Elevated total bilirubin, resolved -Patient with unchanged dilation of the gallbladder duct since 2018 given advanced age and confusion with not proceed with further evaluation as this is unchanged Hypertension -Controlled -Follow blood pressures with recent medication changes -Losartan and amlodipine on hold Dyslipidemia -Atorvastatin DVT prophylaxis: Heparin gtt Discussed with: Patient, nursing Anticipated discharge: in 2-3 days, pending further recommendations from vascular surgery Anticipated discharge place: home A total of 45 minutes was spent on the care of this complex patient more than 50% of the time was spent in counseling and care coordination. Objective - Vital Signs Vital signs: Vital Signs Temp 98.1 F 08/26/21 03:45 Pulse 101 H 08/26/21 03:45 Resp 17 08/26/21 03:45 BP 160/85 08/26/21 03:45 Pulse Ox 93 L 08/26/21 03:45 Intake & Output 08/25/21 08/26/21 08/26/21 18:59 06:59 18:59 Intake Total 73.238 162.518 Output Total 0 Balance 73.238 162.518 Weight 50 kg Intake: Intake, IV Titration 73.238 162.518 Amount Diltiazem 125 mg In 30.916 Sodium Chloride 0.9% 100 ml @ 5 MG/HR 5 mls/hr IV .Q24H [facility] Rx#:[id number] Heparin Sod,Pork in 0.45% 42.322 162.518 NaCl 25,000 unit In 0.45 % NaCl 1 250ml.bag @ 18 UNITS/KG/HR 9.234 mls/hr IV .Q24H ROSSY Rx#: [id number] Output: Urine 0 Other: Voiding Method Toilet Toilet # Voids 1 - Labs CBC & Chem 7: 08/26/21 05:45 08/26/21 05:45 Labs: Abnormal Lab Results - Last 24 Hours (Table) 08/25/21 08/25/21 08/26/21 Range/Units 12:52 15:02 05:45 APTT 52.0 H 53.6 H 60.7 H (22.0-30.0) sec Potassium (3.5-5.1) mmol/L Glucose (74-99) mg/dL 08/26/21 Range/Units 05:45 APTT (22.0-30.0) sec Potassium 3.4 L (3.5-5.1) mmol/L Glucose 111 H (74-99) mg/dL <Chinyere Simon - Last Filed: 08/26/21 17:45> Subjective Evin Morgan NP rendered care for this patient independently, reviewed the findings and plan as documented in the note above. I did not physically speak with or examine the patient on this date. D/W Dr. Aquino no plans for angiogram at that time, will follow-up as an outpatient. Transitioned from heparin gtt to eliquis. Objective - Vital Signs Vital signs: Vital Signs Temp 98.4 F 08/26/21 16:00 Pulse 119 H 08/26/21 16:00 Resp 18 08/26/21 16:00 BP 166/89 08/26/21 16:00 Pulse Ox 94 L 08/26/21 16:00 Intake & Output 08/25/21 08/26/21 08/26/21 18:59 06:59 18:59 Intake Total 73.238 162.518 Output Total 0 1 Balance 73.238 162.518 -1 Weight 50 kg Intake: Intake, IV Titration 73.238 162.518 Amount Diltiazem 125 mg In 30.916 Sodium Chloride 0.9% 100 ml @ 5 MG/HR 5 mls/hr IV .Q24H ROS[facility] Rx#:[id number] Heparin Sod,Pork in 0.45% 42.322 162.518 NaCl 25,000 unit In 0.45 % NaCl 1 250ml.bag @ 18 UNITS/KG/HR 9.234 mls/hr IV .Q24H ROSSY Rx#: [id number] Output: Urine 0 Stool 1 Other: Voiding Method Toilet Toilet Toilet # Voids 1 1 - Labs CBC & Chem 7: 08/26/21 05:45 08/26/21 05:45 Labs: Abnormal Lab Results - Last 24 Hours (Table) 08/26/21 08/26/21 Range/Units 05:45 05:45 APTT 60.7 H (22.0-30.0) sec Potassium 3.4 L (3.5-5.1) mmol/L Glucose 111 H (74-99) mg/dL
[2021-08-26] MEDS: HEPARIN SOD,PORK IN 0.45% NACL 25,000 UNIT in 0.45% NACL 1 250ML.BAG IV SCH (14:14)
[2021-08-26] MEDS: APIXABAN 5 MG TAB PO SCH (19:56)
[2021-08-26] MEDS: METOPROLOL TARTRATE 50 MG TAB PO SCH (19:56)
[2021-08-26] MEDS ORDERED: APIXABAN 2.5 MG TABLET PO SCH (21:00)
[2021-08-27 06:01] LABS: HCT 40.6 % (34.0-46.0); MCHC 31.9 g/dL (31.0-37.0); MCV 87.6 fL (80.0-100.0); Mean Platelet Volume 8.3; Platelet Count 170 k/uL (150-450); RBC 4.63 m/uL (3.80-5.40); RDW 15.5 % (11.5-15.5); WBC 7.7 k/uL (3.8-10.6)
[2021-08-27 06:17] LABS: Albumin 3.1 g/dL (3.5-5.0); Calcium 8.8 mg/dL (8.4-10.2); Magnesium 2.2 mg/dL (1.6-2.3); Potassium 3.4 mmol/L (3.5-5.1); Total Protein 5.9 g/dL (6.3-8.2)
--- NOTE | 2021-08-27 09:01 | P.ARTDOP ---
Arterial Doppler LOWER EXTREMITY ARTERIAL DOPPLER: DATE OF SERVICE: 08/23/2021 Reason for study: Poor pulses on the left. Doppler waveforms: Multiphasic throughout on the right with excellent digital waveforms. Atypical at the left femoral and monophasic below with flat line digital Pulse volume recording: []. Pressure gradients: No gradient on the right. Significant gradient on the left above the low thigh Ankle-brachial indices: Greater than 1 on the right and 0.46 on the left. Toe brachial indices: 0.84 on the right on the right, can't measure on the left Impression: The right is normal. 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 If patient has ulcers or pain a vascular specialty consult should be considered. Otherwise close observation would be warranted..
[2021-08-27] MEDS: POTASSIUM CHLORIDE ER 20 MEQ TAB.ER PO SCH (10:29)
[2021-08-27] MEDS: ATORVASTATIN 40 MG TAB PO SCH (10:29)
[2021-08-27] MEDS: METOPROLOL TARTRATE 50 MG TAB PO SCH (10:29)
[2021-08-27] MEDS: APIXABAN 5 MG TAB PO SCH (10:29)
[2021-08-27] MEDS: LOSARTAN 50 MG TAB PO SCH (10:29)
[2021-08-27 10:40] VITALS: RESP 16
--- NOTE | 2021-08-27 10:57 | P.PN ---
Subjective Progress Note Date: 08/27/21 The patient is seen and examined lying in bed. She has a bedside sitter due to her confusion and dementia. Patient is denying any acute pain to her lower extremities. She's had no acute changes through the night. Plan is for discharge home to her . Apparently Dr. Aquino had a discussion with the patient's yesterday and they have agreed for no acute intervention at this time. Patient will follow-up in the office upon discharge. Objective - Vital Signs Vital signs: Vital Signs Temp 98.4 F 08/27/21 04:00 Pulse 84 08/27/21 04:00 Resp 18 08/27/21 04:00 BP 147/79 08/27/21 04:00 Pulse Ox 96 08/27/21 04:00 Intake & Output 08/26/21 08/27/21 08/27/21 18:59 06:59 18:59 Intake Total 180 Output Total 1 Balance 179 Weight 51.1 kg Intake: Oral 180 Output: Stool 1 Other: Voiding Method Toilet Toilet Diaper Diaper Incontinent Incontinent # Voids 1 0 - Exam General appearance: The patient is alert, pleasantly confused, appears in no acute distress. HET: Head is normocephalic and atraumatic. Pupils are equal and reactive. Oropharynx is clear without lesions. Neck: Supple without lymphadenopathy. Trachea midline. Heart: S1 S2. Irregular rate and rhythm. Lungs: Clear to auscultation. Abdomen: Soft, nontender, nondistended. Extremities: Normal skin color and turgor. No cyanosis, rash, ulceration, clubbing, or edema. Bilateral palpable femoral pulses. Right lower extremity with palpable dorsalis pedis and posterior tibialis pulses, warm to the touch with good capillary refill. Left lower extremity nonpalpable DP or PT pulses, foot is slightly cool to the touch. She has good range of motion. Denies any pain with palpation. She has a positive biphasic popliteal Doppler signal, posterior tibialis and dorsalis pedis with monophasic Doppler signal. Neurological: Patient is pleasantly confused. - Labs CBC & Chem 7: 08/27/21 05:43 08/27/21 05:43 Labs: Abnormal Lab Results - Last 24 Hours (Table) 08/27/21 Range/Units 05:43 Potassium 3.4 L (3.5-5.1) mmol/L Chloride 108 H (98-107) mmol/L AST 38 H (14-36) U/L Total Protein 5.9 L (6.3-8.2) g/dL Albumin 3.1 L (3.5-5.0) g/dL Assessment and Plan Assessment: 1. Left leg pain 2. Abnormal arterial Doppler study. LAILA right lower extremity 1.14, left lower extremity 0.30. At this time patient is not complaining of any pain. Acute versus chronic ischemia 3. Atrial fibrillation with RVR, patient on heparin drip currently Plan: 1. May transition to Eliquis 2. No Plans for any acute vascular surgical intervention. Been discussed with the patient's with Dr. Aquino. 3. Patient is cleared for discharge from vascular surgery. She is to follow-up as an outpatient in 1-2 weeks. Thank you for this consultation, we will continue to follow. The impression and plan of care has been dictated as directed. Dr. Sauer I performed a history and examination of this patient, discussed the same with the dictator. I agree with the dictator's note ,documented as a scribe. Any additional findings or plans will be noted.
--- NOTE | 2021-08-27 11:15 | P.DS ---
<Evin Morgan - Last Filed: 08/27/21 14:19> Providers Expected date of discharge: 08/27/21 Hospital Course: Discharge Diagnosis: Permanent A. fib with rapid ventricular response Left leg pain Elevated total bilirubin, resolved Hypertension Dyslipidemia Hospital Course: Patient is an 89-year-old female with a history of permanent A. fib, coronary artery disease, hypertension, and dyslipidemia who presented to the emergency department on 08/23/21 with complaints of left leg pain. In the emergency department patient was seen and fully evaluated. She was found to be significantly tachycardic and an EKG was completed revealing A. fib RVR with a ventricular rate of 136 bpm. X-ray left leg negative for acute abnormality showing no fractures or dislocations. Venous Doppler left lower extremity ne gative for DVT. Patient was started on Cardizem infusion along with anticoagulation with heparin and admitted under our services with consultation to cardiology and vascular surgery. During hospitalization patient has had intermittent episodes of increased confusion requiring sitter to be placed at bedside. Cardiology evaluated patient and she underwent echocardiogram which revealed an EF of 55-60% along with left ventricular hypertrophy and a severely dilated left atria. Ventricular rate stabilized after multiple medication changes. Vascular surgery also evaluated patient and Arterial Doppler study was completed. Arterial doppler study revealed abnormal findings stating LAILA right lower extremity 1.14, left lower extremity 0.30, acute versus chronic ischemia. Dr. Aquino discussed findings with patient's , no plans for arteriogram or surgical intervention at this time. Pt's condition is stable and she is medically stable for discharge home with her family. Pt being discharged home with new prescription for metoprolol tartrate 50 mg twice daily and to continue daily medication regimen with losartan, atorvastatin, amlodipine, and Eliquis. Pt requires 24-hour supervision and this was discussed with patient's son in detail. Patient to follow-up with PCP, vascular surgery, and cardiology upon discharge. Patient being discharged with [facility] services. Imaging: Lumbar spine x-ray minimal wedging at L1-L2, no acute fracture Chest x-ray: Moderate cardiomegaly Knee X-ray left: No acute fracture Left lower extremity Doppler: No signs of DVT Brain CT: No cerebral atrophy Abdominal ultrasound: Distended gallbladder with biliary sludge not different from 2018 Echocardiogram: Ejection fraction 55-60%, LVH, severely dilated left atria Arterial Doppler study was reported as abnormal stating LAILA right lower extremity 1.14, left lower extremity 0.30, acute versus chronic ischemia. Physical examination: Patient seen and examined at bedside. Patient appears more alert today and is alert to person, place, and situation. Remains confused to time. Pt states that she is ready to go back home with her . HR has been controlled. Patient has been ambulatory in room, she denies having any pain or weakness in her left lower extremity at this time. She was seen and evaluated by PT and OT they are recommending patient home with home care with nursing/PT/OT and 24-hour supervision by family. Morning labs reviewed and were unremarkable with the exception of mild hypokalemia with potassium of 3.4, replaced. General: non toxic, no distress, appears at stated age Derm: warm, dry Head: atraumatic, normocephalic, symmetric Eyes: EOMI, no lid lag, anicteric sclera Mouth: no lip lesion, mucus membranes moist Cardiovascular: Irregularly irregular rhythm and tachycardic rate, no murmur, absent posterior tibial pulse bilateral, Lungs: Respirations even, regular, and unlabored on room air. Lungs clear to auscultation bilaterally. No rhonchi, no rales , no accessory muscle use Abdominal: soft, nontender to palpation, no guarding, no appreciable organomegaly Ext: no gross muscle atrophy, no edema, no contractures Neuro: CN II-XI grossly intact, no focal neuro deficits, left ankle and calf appear to be smaller in size than right ankle and calf, unable to palpate dorsalis pedis pulses on either leg but appear warm and dry, capillary refill less than 2 seconds Psych: Alert, oriented, appropriate affect A total of 45 minutes of time were spent preparing this complex discharge summary. Patient Condition at Discharge: Stable Plan - Discharge Summary Discharge Rx Participant: Yes New Discharge Prescriptions: New Metoprolol Tartrate [Lopressor] 50 mg PO BID 30 Days #60 tab Continue Losartan [Cozaar] 50 mg PO DAILY Atorvastatin [Lipitor] 40 mg PO DAILY amLODIPine [Norvasc] 5 mg PO DAILY Apixaban [Eliquis] 2.5 mg PO BID 30 Days #60 tab Discontinued Atenolol [Tenormin] 50 mg PO BID Discharge Medication List Losartan [Cozaar] 50 mg PO DAILY 08/01/14 [History] Atorvastatin [Lipitor] 40 mg PO DAILY 12/20/16 [History] amLODIPine [Norvasc] 5 mg PO DAILY 10/02/17 [History] Apixaban [Eliquis] 2.5 mg PO BID 30 Days #60 tab 08/27/21 [Rx] Metoprolol Tartrate [Lopressor] 50 mg PO BID 30 Days #60 tab 08/27/21 [Rx] Follow up Appointment(s)/Referral(s): [facility], [NON-STAFF] - Laurel Gaytan MD [STAFF PHYSICIAN] - 09/08/21 4:00 pm Boyd Aquino DO [STAFF PHYSICIAN] - 09/16/21 10:00 am ([place] office) Keyshawn Carlton MD [REFERRING] - 08/28/21 8:15 am (Arrive at 08:00 am to fill out paperwork please. ) Patient Instructions/Handouts: A-fib (Atrial Fibrillation) (DC) Activity/Diet/Wound Care/Special Instructions: Activity: As tolerated. Patient requires 24 hour supervision. Diet: Regular diet, encourage intake Special Instructions: Take all of your medications as directed and remember to keep all of your doctor's appointments and follow-up as needed. You are being discharged home into the care of your and family members to help care for you. In addition we are sending you home with [facility]. Thank you for allowing us to participate in your care, it was truly a pleasure having you for our patient!!! Discharge Disposition: HOME WITH HOME HEALTH SERVICES <Chinyere Simon A - Last Filed: 08/27/21 15:09> Providers Date of admission: 08/23/21 15:08 Attending physician: Fermin Nam MD Consults: 08/23/21 15:08 Consult Physician Urgent Consulting Provider: Laurel Gaytan Consult Reason/Comments: a fib Do you want consulting provider notified?: Yes 08/25/21 11:07 Consult Physician Urgent Consulting Provider: Boyd Aquino Consult Reason/Comments: left leg pain Do you want consulting provider notified?: Yes Primary care physician: Stated None Hospital Course: Evin Morgan NP rendered care for this patient independently, reviewed the findings and plan as documented in the note above. I did not physically speak with or examine the patient on this date.
[2021-08-27 11:30] VITALS: BP 144/87; PULSE 85; TEMP 98.4
--- NOTE | 2021-08-27 11:45 | P.PN ---
Subjective The patient is an 89-year-old female with a past medical history significant for permanent atrial fibrillation (on Eliquis outpatient), coronary artery disease with prior coronary artery that was grafting where in 2006 she received LAU to LAD and SVG to RCA, PIC to OM as well as she underwent stenting of the SVG to RCA in 2008, hypertension and dyslipidemia. She follows with Dr. Gaytan. We are consulted for atrial fibrillation with RVR. She presents to the emergency department with left leg pain according to her started a few days ago. Vascular is consulted. 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 Patient seen and examined at bedside. She denies further pain in her left lower extremity. She continues to be in atrial fibrillation with controlled rates. She is currently maintained on Eliquis 5mg BID, metoprolol tartrate 50 mg twice a day, atorvastatin 40 mg daily, losartan 50mg daily. Echocardiogram revealed EF 5560%, LA is severely dilated, no significant wall motion abnormalities. Labs, sodium 140, potassium 3.4, BUN 13, serum creatinine 0.7, WBC 7.7, hemoglobin 13, platelets 170 GENERAL: No acute distress NECK: Supple without JVD or thyromegaly. LUNGS: Breath sounds clear to auscultation bilaterally. Respiration equal and unlabored. No wheezes, rales or rhonchi. HEART: Irregular rate and rhythm without murmurs, rubs or gallops. S1 and S2 heard. EXTREMITIES: Normal range of motion, no edema. ASSESSMENT Left leg pain Chronic persistent atrial fibrillation with RVR, on Eliquis outpatient, currently on IV heparin Coronary artery disease with prior coronary artery that was grafting where in 2006 she received LAU to LAD and SVG to RCA, PIC to OM as well as she underwent stenting of the SVG to RCA in 2008 Hypertension Dyslipidemia PLAN -Continue Metoprolol tartrate 25mg BID, losartan, and statin -Patient switched to Eliquis -From a cardiology perspective, patient is stable. We will follow the patient as needed. Please reach out with any questions Nurse Practitioner note has been reviewed, I agree with a documented findings and plan of care. Patient was seen and examined. Objective - Vital Signs Vital signs: Vital Signs Temp 98.4 F 08/27/21 11:29 Pulse 85 08/27/21 11:29 Resp 16 08/27/21 11:29 BP 144/87 08/27/21 11:29 Pulse Ox 96 08/27/21 11:29 Intake & Output 08/26/21 08/27/21 08/27/21 18:59 06:59 18:59 Intake Total 180 90 Output Total 1 Balance 179 90 Weight 51.1 kg Intake: Oral 180 90 Output: Stool 1 Other: Voiding Method Toilet Toilet Toilet Diaper Diaper Diaper Incontinent Incontinent Incontinent # Voids 1 0 - Labs CBC & Chem 7: 08/27/21 05:43 08/27/21 05:43 Labs: Abnormal Lab Results - Last 24 Hours (Table) 08/27/21 Range/Units 05:43 Potassium 3.4 L (3.5-5.1) mmol/L Chloride 108 H (98-107) mmol/L AST 38 H (14-36) U/L Total Protein 5.9 L (6.3-8.2) g/dL Albumin 3.1 L (3.5-5.0) g/dL
== END 2021-08-27 14:59 | disposition home health service (06) | DRG 310 ==
LOC: EC 10:35 → 3SCARD 15:08
PROVIDERS: ADMIT Hospitalist; ATTEND Hospitalist
DX: I48.21 Permanent atrial fibrillation (principal); E78.5 Hyperlipidemia, unspecified; F03.90 Unspecified dementia, unspecified severity, without behavioral disturbance, psychotic disturbance, mood disturbance, and anxiety; I10 Essential (primary) hypertension; I25.10 Atherosclerotic heart disease of native coronary artery without angina pectoris; E80.6 Other disorders of bilirubin metabolism; K82.8 Other specified diseases of gallbladder; M81.0 Age-related osteoporosis without current pathological fracture; E03.9 Hypothyroidism, unspecified; G89.29 Other chronic pain; H40.9 Unspecified glaucoma; I70.202 Unspecified atherosclerosis of native arteries of extremities, left leg; Z78.1 Physical restraint status; M19.90 Unspecified osteoarthritis, unspecified site; R41.0 Disorientation, unspecified; Z20.822 Contact with and (suspected) exposure to COVID-19; Z79.01 Long term (current) use of anticoagulants; Z79.899 Other long term (current) drug therapy; Z86.718 Personal history of other venous thrombosis and embolism; Z90.710 Acquired absence of both cervix and uterus; Z95.1 Presence of aortocoronary bypass graft; Z95.5 Presence of coronary angioplasty implant and graft; Z87.01 Personal history of pneumonia (recurrent); Z85.828 Personal history of other malignant neoplasm of skin; Z98.890 Other specified postprocedural states; Z96.653 Presence of artificial knee joint, bilateral; Z90.49 Acquired absence of other specified parts of digestive tract
CPT/HCPCS: 36415; 70450; 71046; 72100; 76705; 80048; 80053; 80061; 83735; 84439; 84443; 84484; 85025; 85027; 85610; 85730; 87635; 93005; 93306; 93923; 94760; 99291